=== PATIENT | female | born 1945 | race Caucasian/White ===

== ENCOUNTER → 2016-10-16 | Outpatient (CLI) | payer MEDICARE ==
[~2016-10-16] MED LIST: GOLIMUMAB IV ONE; SODIUM CHLORIDE 0.9% 250 ML in EMPTY BAG 1 BAG IV PRN; SODIUM CHLORIDE 0.9% 500 ML in EMPTY BAG 1 BAG IV PRN; SODIUM CHLORIDE 0.9% IV ONE
[2016-10-16 09:38] VITALS: BP 170/74; PULSE 70; RESP 20; TEMP 97.7
== END | disposition home or self-care (01) ==
LOC: PROCWHC3 09:02
PROVIDERS: ATTEND Internal Medicine Rheumatology
DX: M05.79 Rheumatoid arthritis with rheumatoid factor of multiple sites without organ or systems involvement (principal)
CPT/HCPCS: 96365; J1602

== ENCOUNTER → 2016-12-11 | Outpatient (CLI) | payer MEDICARE ==
[2016-12-11 10:03] VITALS: BP 140/62; PULSE 62; RESP 16; TEMP 98
== END | disposition home or self-care (01) ==
LOC: PROCWHC3 09:42
PROVIDERS: ATTEND Internal Medicine Rheumatology
DX: M05.79 Rheumatoid arthritis with rheumatoid factor of multiple sites without organ or systems involvement (principal)
CPT/HCPCS: 96365; J1602

== ENCOUNTER → 2017-02-05 | Outpatient (CLI) | payer MEDICARE ==
[2017-02-05 10:18] VITALS: BP 141/65; PULSE 73; RESP 16; TEMP 98.1
== END | disposition home or self-care (01) ==
LOC: PROCWHC3 09:53
PROVIDERS: ATTEND Internal Medicine Rheumatology
DX: M05.79 Rheumatoid arthritis with rheumatoid factor of multiple sites without organ or systems involvement (principal)
CPT/HCPCS: 96365; J1602

== ENCOUNTER → 2017-04-02 | Outpatient (CLI) | payer MEDICARE ==
[2017-04-02 10:28] VITALS: BP 163/82; PULSE 57; RESP 16; TEMP 98
== END ==
LOC: PROCWHC3 08:54
PROVIDERS: ATTEND Internal Medicine Rheumatology
DX: M05.79 Rheumatoid arthritis with rheumatoid factor of multiple sites without organ or systems involvement (principal)
CPT/HCPCS: 96365; J1602

== ENCOUNTER → 2018-03-05 | Outpatient (CLI) | payer MEDICARE ==
--- NOTE | 2018-03-09 10:12 | MM ---
Reason for exam: screening (asymptomatic). Last mammogram was performed 1 year and 8 months ago. History: Patient is postmenopausal and history of other cancer. Family history of breast cancer in aunt at age 50 and breast cancer in aunt at age 45. Cyst aspiration of the left breast. Took estrogen for 4 years 6 months beginning at age 57. Physical Findings: A clinical breast exam by your physician is recommended on an annual basis and results should be correlated with mammographic findings. MG 3D Screening Mammo W/Cad Bilateral CC and MLO view(s) were taken. Prior study comparison: July 11, 2016, bilateral MG 3d screening mammo w/cad. July 10, 2015, bilateral MG screening mammo w CAD. The breast tissue is heterogeneously dense. This may lower the sensitivity of mammography. Benign appearing bilateral calcifications. No suspicious abnormality on the right breast. There is a lateral mid depth rounded asymmetry on CC 3D views on the left breast. ASSESSMENT: Incomplete: need additional imaging evaluation, BI-RAD 0 RECOMMENDATION: Special view mammogram of the left breast. If lesion persists on supplemental views, image directed ultrasound is recommended. [facility] will attempt to contact patient to return for supplemental views and ultrasound if indicated.
== END | disposition home or self-care (01) ==
LOC: RADMAMWWP 09:28
PROVIDERS: ATTEND Internal Medicine
DX: Z12.31 Encounter for screening mammogram for malignant neoplasm of breast (principal)
CPT/HCPCS: 77063; 77067

== ENCOUNTER → 2018-03-05 | Outpatient (CLI) | payer MEDICARE ==
[2018-03-05 10:15] LABS: HGB 12.2 gm/dL (11.4-16.0); MCH 31.9 pg (25.0-35.0); MCHC 32.9 g/dL (31.0-37.0); Mean Platelet Volume 6.2; Platelet Count 296 k/uL (150-450); RBC 3.82 m/uL (3.80-5.40); RDW 14.7 % (11.5-15.5); WBC 6.4 k/uL (3.8-10.6)
[2018-03-05 10:16] LABS: Albumin 3.9 g/dL (3.5-5.0); Calcium 10.4 mg/dL (8.4-10.2); Potassium 4.7 mmol/L (3.5-5.1); Total Bilirubin 1.1 mg/dL (0.2-1.3); Total Protein 6.3 g/dL (6.3-8.2)
[2018-03-05 20:41] LABS: Hemoglobin A1C 5.5 % (4.0-6.0)
== END | disposition home or self-care (01) ==
LOC: LABWHC1 09:03
PROVIDERS: ATTEND Internal Medicine
DX: G46.3 Brain stem stroke syndrome (principal)
CPT/HCPCS: 36415; 80053; 80061; 83036; 84443; 85027

== ENCOUNTER → 2018-03-10 | Outpatient (CLI) | payer MEDICARE ==
--- NOTE | 2018-03-11 08:55 | MM ---
Reason for exam: additional evaluation requested from abnormal screening. Last mammogram was performed less than 1 month ago. History: Patient is postmenopausal and has history of other cancer at age 60. Family history of breast cancer in aunt at age 50 and breast cancer in aunt at age 45. Cyst aspiration of the left breast. Took estrogen for 4 years 6 months beginning at age 57. Physical Findings: Nurse did not find any significant physical abnormalities on exam. MG 3D Work Up W/Cad LT Spot compression CC and ML view(s) were taken of the left breast. Prior study comparison: March 05, 2018, bilateral MG 3d screening mammo w/cad. July 11, 2016, bilateral MG 3d screening mammo w/cad. There are scattered fibroglandular densities. There is no discrete abnormality. These results were verbally communicated with the patient and result sheet given to the patient on 03/10/18. ASSESSMENT: Negative, BI-RAD 1 RECOMMENDATION: Return to routine screening mammogram schedule for both breasts.
== END | disposition home or self-care (01) ==
LOC: RADMAMWWP 13:44
PROVIDERS: ATTEND Internal Medicine
DX: R92.8 Other abnormal and inconclusive findings on diagnostic imaging of breast (principal)
CPT/HCPCS: 77065; G0279; 77061

== ENCOUNTER → 2018-03-24 | Outpatient (CLI) | payer MEDICARE ==
--- NOTE | 2018-03-24 09:48 | MR ---
EXAMINATION TYPE: MR angio head wo con DATE OF EXAM: 03/24/2018 COMPARISON: NONE HISTORY: Stroke CONTRAST: None TECHNIQUE: Multiplanar multiecho imaging on a 3.0 Ruthy magnet is performed through the [place] of [place]. 3-D umrr-sb-ybhybf imaging is performed. Source images are reviewed on the computer in the axi al plane. Reconstructed images rotating on the computer are reviewed. FINDINGS: The internal carotid arteries bifurcate normally into A1 and M1 segments. The A2 segments are normal. Middle cerebral artery branches are normal. Anterior communicating artery is patent. The right posterior communicating artery is absent. The left posterior communicating artery is absent. Vertebrobasilar arteries within the [id number]-qp-ityz are normal. The left vertebral artery is dominant. Posterior cerebral vasculature is normal. No suspicious aneurysm or aneurysmal dilatation is evident. No obstructions are identified. No sign ificant flow-limiting stenosis is evident. IMPRESSIONS: 1. NORMAL MRA [place].
--- NOTE | 2018-03-24 10:19 | MR ---
EXAMINATION TYPE: MR brain wo/w con DATE OF EXAM: 03/24/2018 COMPARISON: NONE HISTORY: Stroke, brain bleed 02/13/2018, history of melanoma CONTRAST: Performed utilizing 7 mL intravenous Gadavist gadolinium contrast. TECHNIQUE: Multiplanar, multiecho imaging on a 3.0 [place]hy magnet is performed through the brain. Stud y is performed within 24 hours of arrival to the hospital. The craniovertebral junction is normal. The pituitary is normal. No blooming artifact suggest resid ual hemorrhage is evident. Diffusion-weighted imaging is performed. No abnormal hyperintensity is present to suggest an acute i ntracranial infarct or acute ischemic change. Patchy periventricular white matter hyperintensities are present on T2 and inversion recovery weighte d sequences. Findings are nonspecific but can be related to chronic white matter ischemic type change s. Ventricles and sulci are appropriate for the patient age. No abnormal enhancement is evident post contrast. IMPRESSIONS: 1. Patchy to confluent periventricular white matter ischemic changes, likely chronic. 2. No acute or subacute ischemic areas identified. 3. No abnormal enhancement.
== END | disposition home or self-care (01) ==
LOC: RADMRIMAIN 07:58
PROVIDERS: ATTEND Internal Medicine
DX: I67.82 Cerebral ischemia (principal); Z86.73 Personal history of transient ischemic attack (TIA), and cerebral infarction without residual deficits
CPT/HCPCS: 70544; 70553; A9581

== ENCOUNTER 2018-05-06 18:44 | Emergency (ER) | payer MEDICARE ==
[2018-05-06 18:49] VITALS: TEMP 98.2
[2018-05-06] MEDS ORDERED: SODIUM CHLORIDE 0.9% 1,000 ML IV STA (18:54)
--- NOTE | 2018-05-06 19:01 | ED ---
General Adult HPI - General Chief complaint: Neuro Symptoms/Deficit Stated complaint: POSS CVA Time Seen by Provider: 05/06/18 18:53 Source: patient, RN notes reviewed, old records reviewed Mode of arrival: wheelchair Limitations: no limitations - History of Present Illness Initial comments: This is a 72-year-old female the ER for evaluation. Patient does say for evaluation regards to headache. Severe headache, patient concern for stroke. Patient has history of high blood pressure. Patient taking all medication as prescribed. Sudden onset of headache after waking up tonight. No neurological complaint or deficit. Patient states he has remote history of similar symptoms of possible patient denies any loss of consciousness. Denies any recent trauma. No fevers. - Related Data Home Medications Medication Instructions Recorded Confirmed Calcium Carbonate [Calcium] 600 mg PO DAILY 04/01/15 05/06/18 Folic Acid 1 mg PO DAILY 04/01/15 05/06/18 Furosemide [Lasix] 40 mg PO DAILY 04/01/15 05/06/18 Sterling-3 Fatty Acids [Sterling-3] 1,000 mg PO DAILY 04/01/15 05/06/18 Omeprazole [PriLOSEC] 20 mg PO AC-BRKFST 04/01/15 05/06/18 Metoprolol Succinate (ER) [Toprol 50 mg PO DAILY 03/06/16 05/06/18 XL] Abatacept/Maltose [Orencia] 750 mg IVPB Q28D 05/06/18 05/06/18 Aspirin EC [Ecotrin] 325 mg PO DAILY 05/06/18 05/06/18 Bio-Cleanse 3 cap PO PC-LUNCH 05/06/18 05/06/18 Cholecalciferol [Vitamin D3] 1,000 unit PO BID 05/06/18 05/06/18 Cyanocobalamin (Vitamin B-12) 1,000 mcg PO DAILY 05/06/18 05/06/18 [Vitamin B-12] L.acidoph,Paracasei, B.lactis 2 cap PO HS 05/06/18 05/06/18 [Probiotic] Lisinopril 40 mg PO DAILY 05/06/18 05/06/18 Methotrexate Sodium [Methotrexate] 20 mg PO TU 05/06/18 05/06/18 NIFEdipine XL [Procardia Xl] 60 mg PO Q48H 05/06/18 05/06/18 Rosuvastatin Calcium [Crestor] 5 mg PO HS 05/06/18 05/06/18 Allergies Allergy/AdvReac Type Severity Reaction Status Date / Time pseudoephedrine HCl Allergy Unknown Verified 05/06/18 19:04 [From Sudafed] Sulfa (Sulfonamide Allergy Unknown Verified 05/06/18 19:04 Antibiotics) Review of Systems ROS Statement: Those systems with pertinent positive or pertinent negative responses have been documented in the HPI. ROS Other: All systems not noted in ROS Statement are negative. Past Medical History Past Medical History: CVA/TIA, Hyperlipidemia, Hypertension, Rheumatoid Arthritis (RA) History of Any Multi-Drug Resistant Organisms: None Reported Past Surgical History: Joint Replacement, Orthopedic Surgery Additional Past Surgical History / Comment(s): 03/2017 L foot surgery. Past Psychological History: No Psychological Hx Reported Smoking Status: Former smoker Past Alcohol Use History: None Reported Past Drug Use History: None Reported General Exam Limitations: no limitations General appearance: alert, in no apparent distress, anxious Head exam: Present: atraumatic, normocephalic, normal inspection Eye exam: Present: normal appearance, PERRL, EOMI. Absent: scleral icterus, conjunctival injection, periorbital swelling ENT exam: Present: normal exam, mucous membranes moist Neck exam: Present: normal inspection. Absent: tenderness, meningismus, lymphadenopathy Respiratory exam: Present: normal lung sounds bilaterally. Absent: respiratory distress, wheezes, rales, rhonchi, stridor Cardiovascular Exam: Present: regular rate, normal rhythm, normal heart sounds. Absent: systolic murmur, diastolic murmur, rubs, gallop, clicks GI/Abdominal exam: Present: soft, normal bowel sounds. Absent: distended, tenderness, guarding, rebound, rigid Extremities exam: Present: normal inspection, full ROM, normal capillary refill. Absent: tenderness, pedal edema, joint swelling, calf tenderness Back exam: Present: normal inspection Neurological exam: Present: alert, oriented X3, CN II-XII intact Psychiatric exam: Present: normal affect, normal mood Skin exam: Present: warm, dry, intact, normal color. Absent: rash Course Vital Signs 05/06/18 18:46 Temperature 98.2 F Pulse Rate 74 Respiratory 20 Rate Blood Pressure 174/85 O2 Sat by Pulse 99 Oximetry - Reevaluation(s) Reevaluation #1: 05/06/18 21:12 Medical records reviewed Reevaluation #2: 05/06/18 21:13 Headache is improved blood pressure is controlled EKG Findings - EKG Comments: EKG Findings:: EKG shows no signs of an 86, KS 154, QRS 80, QTC 471 Medical Decision Making - Medical Decision Making 72 female with undifferentiated headache. CT CT brain is negative for acute disease labwork normal. Patient can be discharged - Lab Data Result diagrams: 05/06/18 18:49 05/06/18 18:49 Lab Results 05/06/18 05/06/18 05/06/18 Range/Units 18:49 18:49 18:49 WBC 7.1 (3.8-10.6) k/uL RBC 4.06 (3.80-5.40) m/uL Hgb 13.3 (11.4-16.0) gm/dL Hct 39.4 (34.0-46.0) % MCV 97.0 (80.0-100.0) fL MCH 32.7 (25.0-35.0) pg MCHC 33.7 (31.0-37.0) g/dL RDW 14.3 (11.5-15.5) % Plt Count 280 (150-450) k/uL Neutrophils % 41 % Lymphocytes % 47 % Monocytes % 5 % Eosinophils % 2 % Basophils % 1 % Neutrophils # 2.9 (1.3-7.7) k/uL Lymphocytes # 3.3 (1.0-4.8) k/uL Monocytes # 0.3 (0-1.0) k/uL Eosinophils # 0.2 (0-0.7) k/uL Basophils # 0.0 (0-0.2) k/uL PT (9.0-12.0) sec INR (<1.2) APTT (22.0-30.0) sec Sodium 139 (137-145) mmol/L Potassium 4.3 (3.5-5.1) mmol/L Chloride 104 (98-107) mmol/L Carbon Dioxide 26 (22-30) mmol/L Anion Gap 9 mmol/L BUN 13 (7-17) mg/dL Creatinine 0.84 (0.52-1.04) mg/dL Est GFR (CKD-EPI)AfAm 79 (>60 ml/min/1.73 sqM) Est GFR (CKD-EPI)NonAf 69 (>60 ml/min/1.73 sqM) Glucose 102 H (74-99) mg/dL POC Glucose (mg/dL) (75-99) mg/dL POC Glu Help Desk Specialist ID Calcium 10.7 H (8.4-10.2) mg/dL Total Bilirubin 0.8 (0.2-1.3) mg/dL AST 37 H (14-36) U/L ALT 30 (9-52) U/L Alkaline Phosphatase 83 (38-126) U/L Total Creatine Kinase 82 (30-135) U/L CK-MB (CK-2) 1.0 (0.0-2.4) ng/mL CK-MB (CK-2) Rel Index 1.2 Troponin I <0.012 (0.000-0.034) ng/mL Total Protein 7.2 (6.3-8.2) g/dL Albumin 4.5 (3.5-5.0) g/dL Urine Color Urine Appearance (Clear) Urine pH (5.0-8.0) Ur Specific [place] (1.001-1.035) Urine Protein (Negative) Urine Glucose (UA) (Negative) Urine Ketones (Negative) Urine Blood (Negative) Urine Nitrite (Negative) Urine Bilirubin (Negative) Urine Urobilinogen (<2.0) mg/dL Ur Leukocyte Esterase (Negative) 05/06/18 05/06/18 05/06/18 Range/Units 18:49 18:54 19:32 WBC (3.8-10.6) k/uL RBC (3.80-5.40) m/uL Hgb (11.4-16.0) gm/dL Hct (34.0-46.0) % MCV (80.0-100.0) fL MCH (25.0-35.0) pg MCHC (31.0-37.0) g/dL RDW (11.5-15.5) % Plt Count (150-450) k/uL Neutrophils % % Lymphocytes % % Monocytes % % Eosinophils % % Basophils % % Neutrophils # (1.3-7.7) k/uL Lymphocytes # (1.0-4.8) k/uL Monocytes # (0-1.0) k/uL Eosinophils # (0-0.7) k/uL Basophils # (0-0.2) k/uL PT 9.7 (9.0-12.0) sec INR 1.0 (<1.2) APTT 22.8 (22.0-30.0) sec Sodium (137-145) mmol/L Potassium (3.5-5.1) mmol/L Chloride (98-107) mmol/L Carbon Dioxide (22-30) mmol/L Anion Gap mmol/L BUN (7-17) mg/dL Creatinine (0.52-1.04) mg/dL Est GFR (CKD-EPI)AfAm (>60 ml/min/1.73 sqM) Est GFR (CKD-EPI)NonAf (>60 ml/min/1.73 sqM) Glucose (74-99) mg/dL POC Glucose (mg/dL) 99 (75-99) mg/dL POC Glu Help Desk Specialist ID Sanjeev Gillis Calcium (8.4-10.2) mg/dL Total Bilirubin (0.2-1.3) mg/dL AST (14-36) U/L ALT (9-52) U/L Alkaline Phosphatase (38-126) U/L Total Creatine Kinase (30-135) U/L CK-MB (CK-2) (0.0-2.4) ng/mL CK-MB (CK-2) Rel Index Troponin I (0.000-0.034) ng/mL Total Protein (6.3-8.2) g/dL Albumin (3.5-5.0) g/dL Urine Color Colorless Urine Appearance Clear (Clear) Urine pH 7.5 (5.0-8.0) Ur Specific [place] 1.004 (1.001-1.035) Urine Protein Negative (Negative) Urine Glucose (UA) Negative (Negative) Urine Ketones Negative (Negative) Urine Blood Negative (Negative) Urine Nitrite Negative (Negative) Urine Bilirubin Negative (Negative) Urine Urobilinogen <2.0 (<2.0) mg/dL Ur Leukocyte Esterase Negative (Negative) - Radiology Data Radiology results: report reviewed (CT CT brain negative for acute disease), image reviewed Disposition Clinical Impression: Acute headache, Hypertension Disposition: HOME SELF-CARE Condition: Good Instructions: Acute Headache (ED) Is patient prescribed a controlled substance at d/c from ED?: No Referrals: Christiano Sue MD [Primary Care Provider] - 1-2 days
[2018-05-06 19:03] LABS: Glucose,Whole Blood 99 mg/dL (75-99)
[2018-05-06 19:34] LABS: Basophils % (A) 1 %; Eosinophils # (A) 0.2 k/uL (0-0.7); Eosinophils % (A) 2 %; HCT 39.4 % (34.0-46.0); HGB 13.3 gm/dL (11.4-16.0); Lymphocytes # (A) 3.3 k/uL (1.0-4.8); Lymphocytes % (A) 47 %; MCH 32.7 pg (25.0-35.0); MCHC 33.7 g/dL (31.0-37.0); Mean Platelet Volume 6.8; Monocytes # (A) 0.3 k/uL (0-1.0); Monocytes % (A) 5 %; Neutrophils # (A) 2.9 k/uL (1.3-7.7); Neutrophils % (A) 41 %; Platelet Count 280 k/uL (150-450); RBC 4.06 m/uL (3.80-5.40); RDW 14.3 % (11.5-15.5); WBC 7.1 k/uL (3.8-10.6)
[2018-05-06 19:36] LABS: Albumin 4.5 g/dL (3.5-5.0); Calcium 10.7 mg/dL (8.4-10.2); Potassium 4.3 mmol/L (3.5-5.1); Total Bilirubin 0.8 mg/dL (0.2-1.3); Total Protein 7.2 g/dL (6.3-8.2)
[2018-05-06 19:37] LABS: Creatine Kinase 82 U/L (30-135)
[2018-05-06 19:39] LABS: Appearance,Urine Clear (Clear); Bilirubin,Urine Negative (Negative); Blood,Urine Negative (Negative); Color,Urine Colorless; Glucose,Urine (UA) Negative (Negative); Ketones,Urine Negative (Negative); Leukocyte Esterase,Urine Negative (Negative); Nitrite,Urine Negative (Negative); PH, Urine 7.5 (5.0-8.0); Protein,Urine Negative (Negative); Specific Gravity,Urine 1.004 (1.001-1.035); Urobilinogen,Urine <2.0 mg/dL (<2.0)
[2018-05-06 19:39] LABS: Partial Thromboplastin Time 22.8 sec (22.0-30.0); Prothrombin Time 9.7 sec (9.0-12.0)
--- NOTE | 2018-05-06 19:44 | CT ---
EXAMINATION: CT brain wo con for TPA DATE AND TIME: 05/06/2018 7:32 PM ORDERING PROVIDER: Marc Gold DO CLINICAL INDICATION: Neuro Deficits TECHNIQUE: 07/01/2016 supine images to cover the abdomen and pelvis COMPARISON: 04/01/2015 CT DESCRIPTION: The calvarium is intact. There is no intracranial hemorrhage. There is no mass or mass e ffect. There is no definite new attenuation defect. Redemonstrated low-attenuation throughout the severo ateral brennan radiata and centrum semiovale noted, but no definite new attenuation defect. Remainder of the intra-axial and extra-axial compartment examination is unremarkable. The paranasal s inuses, middle ear cavities, and mastoid sinus air cells are clear. The orbits are intact. Excessive cerumen is incidentally noted bilaterally within the external auditory canals. IMPRESSION: NO ACUTE PROCESS.
[2018-05-06 19:48] LABS: Troponin I <0.012 ng/mL (0.000-0.034)
--- NOTE | 2018-05-06 20:02 | CT ---
EXAMINATION TYPE: CT angio head neck with contrast and with 3-D Reconstruction rendering DATE OF EXAM: 05/06/2018 HISTORY: Neuro deficits COMPARISON: None CT DLP: 322.7 mGycm. Automated Exposure Control for Dose Reduction was Utilized. TECHNIQUE: CTA scan of the neck is performed with IV Contrast, patient injected with 65ml mL of Isov ue 370, axial images are obtained, coronal and sagittal reformatted images are reviewed. Three-D juju nstructed images are created on an independent workstation and reviewed. FINDINGS: The great vessels at the aortic arch are widely patent. The bilateral carotid arterial systems and lateral vertebral arteries are widely patent throughout th eir cervical course. No hemodynamically significant stenoses. The anterior and posterior intracranial arterial circulation is widely patent. No aneurysm. No hemody namically significant stenoses. There are no incidental extra arterial significant findings. IMPRESSION: NO ACUTE PROCESS.
[2018-05-06] MEDS ORDERED: LABETALOL 5 MG/ML VIAL MDV IVP STA (21:03)
[2018-05-06 21:23] VITALS: BP 188/86; PULSE 79; RESP 16
--- NOTE | 2018-05-06 21:43 | XR ---
EXAMINATION: XR chest 2V DATE AND TIME: 05/06/2018 9:16 PM ORDERING PROVIDER: Marc Gold DO CLINICAL INDICATION: altered mental status TECHNIQUE: PA and lateral COMPARISON: 04/01/2015 DESCRIPTION: The lungs are clear. The pleural spaces are negative. The cardiac silhouette is mildly enlarged. The aorta is ectatic, similar to the prior study. The skeletal structures are intact without focal findings. The soft tissues are unremarkable. IMPRESSION: NO ACUTE PROCESS.
== END 2018-05-06 21:56 | disposition home or self-care (01) ==
LOC: EC 18:44
DX: I10 Essential (primary) hypertension (principal); R51 Headache; E78.5 Hyperlipidemia, unspecified; M06.9 Rheumatoid arthritis, unspecified; Z87.891 Personal history of nicotine dependence; Z79.82 Long term (current) use of aspirin; Z79.899 Other long term (current) drug therapy; Z88.2 Allergy status to sulfonamides; Z88.8 Allergy status to other drugs, medicaments and biological substances
CPT/HCPCS: 36415; 93005; 80053; 82550; 82553; 84484; 85025; 85610; 85730; 81003; 71046; 70496; 70450; 70498; 99285; 96374; 96361; Q9967

== ENCOUNTER → 2018-05-06 | Outpatient (CLI) | payer MEDICARE ==
--- NOTE | 2018-05-06 17:58 | ECHOF ---
Referral Reason:R06.02 Shortness of breath MEASUREMENTS -------- HEIGHT: 162.6 cm WEIGHT: 73.9 kg BP: RVIDd: 2.9 cm (< 3.3) IVSd: 1.0 cm (0.6 - 1.1) LVIDd: 4.3 cm (3.9 - 5.3) LVPWd: 1.0 cm (0.6 - 1.1) IVSs: 1.3 cm LVIDs: 2.8 cm LVPWs: 1.3 cm Ao Diam: 3.3 cm (2.0 - 3.7) LAESV Index (A-L): 21.65 ml/m Ao Diam: 3.3 cm (2.0 - 3.7) AV Cusp: 1.7 cm (1.5 - 2.6) LA Diam: 3.1 cm (2.7 - 3.8) MV E Saúl: 0.82 m/s MV DecT: 249 ms MV A Saúl: 0.97 m/s MV E/A Ratio: 0.85 AR PHT: 408 ms RAP: 5.00 mmHg RVSP: 14.30 mmHg FINDINGS -------- Sinus rhythm. This was a technically adequate study. The left ventricular size is normal. Left ventricular wall thickness is normal. Overall left vent ricular systolic function is normal with, an EF between 55 - 60 %. The right ventricle is normal in size and function. Normal LA size by volume 22+/-6 ml/m2. The right atrium is normal in size. Aortic valve is trileaflet and is mildly thickened. There is djxx-bc-igwveqzt aortic regurgitation. There is no evidence of aortic stenosis. The mitral valve leaflets are mildly thickened. There is trace mitral regurgitation. Trace tricuspid regurgitation present. Right ventricular systolic pressure is normal at < 35 mmHg. There is no evidence of pulmonary hypertension. The pulmonic valve is normal. The aortic root size is normal. Normal inferior vena cava with normal inspiratory collapse consistent with estimated right atrial pre ssure of 5 mmHg. There is no pericardial effusion. CONCLUSIONS -------- 1. Sinus rhythm. 2. This was a technically adequate study. 3. The left ventricular size is normal. 4. Left ventricular wall thickness is normal. 5. Overall left ventricular systolic function is normal with, an EF between 55 - 60 %. 6. Normal LA size by volume 22+/-6 ml/m2. 7. Aortic valve is trileaflet and is mildly thickened. 8. There is suav-ml-adswcusw aortic regurgitation. 9. The mitral valve leaflets are mildly thickened. 10. There is trace mitral regurgitation. 11. Trace tricuspid regurgitation present. 12. Right ventricular systolic pressure is normal at < 35 mmHg. 13. There is no evidence of pulmonary hypertension. 14. The aortic root size is normal. 15. There is no pericardial effusion. LIBRARY SERVICES COORDINATOR: Pratik Cabrera RDCS
== END | disposition home or self-care (01) ==
LOC: RADECHMAIN 14:50
PROVIDERS: ATTEND Internal Medicine
DX: I35.1 Nonrheumatic aortic (valve) insufficiency (principal); I05.9 Rheumatic mitral valve disease, unspecified
CPT/HCPCS: 93306

== ENCOUNTER 2018-06-19 09:41 | Emergency (ER) | payer MEDICARE ==
[2018-06-19 09:53] VITALS: RESP 16
[2018-06-19] MEDS ORDERED: SODIUM CHLORIDE 0.9% 500 ML IV STA (10:21)
[2018-06-19 10:36] LABS: Basophils % (A) 0 %; Eosinophils # (A) 0.2 k/uL (0-0.7); Eosinophils % (A) 2 %; HCT 35.5 % (34.0-46.0); HGB 11.8 gm/dL (11.4-16.0); Lymphocytes # (A) 3.2 k/uL (1.0-4.8); Lymphocytes % (A) 38 %; MCH 32.8 pg (25.0-35.0); MCHC 33.3 g/dL (31.0-37.0); MCV 98.5 fL (80.0-100.0); Mean Platelet Volume 6.7; Monocytes # (A) 0.5 k/uL (0-1.0); Monocytes % (A) 5 %; Neutrophils # (A) 4.2 k/uL (1.3-7.7); Neutrophils % (A) 51 %; Platelet Count 269 k/uL (150-450); RDW 13.7 % (11.5-15.5); WBC 8.3 k/uL (3.8-10.6)
--- NOTE | 2018-06-19 10:38 | ED ---
General Adult HPI - General Chief complaint: Syncope Stated complaint: Fall Source: patient Mode of arrival: EMS Limitations: no limitations - History of Present Illness Initial comments: Dictation was produced using [employer] dictation software. please excuse any grammatical, word or spelling errors. Chief Complaint: 72-year-old female with past medical history of hypertension presents after syncopal episode. History of Present Illness: He was brought in by EMS for syncopal episode. According to who was at home during the event. He states he observed her walking to the kitchen early this morning. She then syncopized. He heard a loud thump. He went into the kitchen and noticed that patient was lying on her back. He states she was unconscious for approximately 1 minute. EMS was called and transported her to the emergency room. states that she was a little confused for approximately 20 minutes after the event. She has no history of seizure. Patient expresses a similar episode while she was visiting in [place] per she was diagnosed with acute CVA. She had an MRI done here back in her home town and she was value by neurologist who suggested that patient's symptoms were not consistent with CVA. Patient currently denies any neurologic deficit. Prior to this episode today patient has been at baseline. The ROS documented in this emergency department record has been reviewed and confirmed by me. Those systems with pertinent positive or negative responses have been documented in the HPI. All other systems are other negative and/or noncontributory. - Related Data Home Medications Medication Instructions Recorded Confirmed Calcium Carbonate [Calcium] 600 mg PO DAILY 04/01/15 06/19/18 Folic Acid 1 mg PO DAILY 04/01/15 06/19/18 Noxapater-3 Fatty Acids [Noxapater-3] 1,000 mg PO DAILY 04/01/15 06/19/18 Metoprolol Succinate (ER) [Toprol 50 mg PO DAILY 03/06/16 06/19/18 XL] Abatacept/Maltose [Orencia] 750 mg IVPB Q28D 05/06/18 06/19/18 Bio-Cleanse 3 cap PO PC-LUNCH 05/06/18 06/19/18 Cyanocobalamin (Vitamin B-12) 1,000 mcg PO DAILY 05/06/18 06/19/18 [Vitamin B-12] L.acidoph,Paracasei, B.lactis 2 cap PO HS 05/06/18 06/19/18 [Probiotic] Methotrexate Sodium [Methotrexate] 20 mg PO TU 05/06/18 06/19/18 Rosuvastatin Calcium [Crestor] 5 mg PO HS 05/06/18 06/19/18 Baclofen 5 mg PO DAILY 06/19/18 06/19/18 Baclofen 10 mg PO HS 06/19/18 06/19/18 Furosemide [Lasix] 20 mg PO BID 06/19/18 06/19/18 Lisinopril [Prinivil] 20 mg PO BID 06/19/18 06/19/18 Multivitamins, Thera [Multivitamin 2 tab PO DAILY 06/19/18 06/19/18 (formulary)] Allergies Allergy/AdvReac Type Severity Reaction Status Date / Time pseudoephedrine HCl Allergy Unknown Verified 06/19/18 10:57 [From Sudafed] Sulfa (Sulfonamide Allergy Unknown Verified 06/19/18 10:57 Antibiotics) Review of Systems ROS Statement: Those systems with pertinent positive or pertinent negative responses have been documented in the HPI. ROS Other: All systems not noted in ROS Statement are negative. Past Medical History Past Medical History: CVA/TIA, Hyperlipidemia, Hypertension, Rheumatoid Arthritis (RA) History of Any Multi-Drug Resistant Organisms: None Reported Past Surgical History: Joint Replacement, Orthopedic Surgery Additional Past Surgical History / Comment(s): 03/2017 L foot surgery. Past Psychological History: No Psychological Hx Reported Smoking Status: Former smoker Past Alcohol Use History: None Reported Past Drug Use History: None Reported General Exam - General Exam Comments Initial Comments: PHYSICAL EXAM: General Impression: Alert and oriented x3, not in acute distress HEENT: Normocephalic atraumatic, extra-ocular movements intact, pupils equal and reactive to light bilaterally, mucous membranes moist. Cardiovascular: Heart regular rate and rhythm, S1&S2 audible, no murmurs, rubs or gallops Chest: Lungs clear to auscultation bilaterally, no rhonchi, no wheeze, no rales Abdomen: Bowel sounds present, abdomen soft, non-tender, non-distended, no organomegaly Musculoskeletal: Pulses present and equal in all extremities, no peripheral edema Motor: Power 5/5 bilaterally, no focal deficits noted Neurological: CN II-XII grossly intact, no focal motor or sensory deficits noted Skin: Intact with no visualized rashes Psych: Normal affect and mood Limitations: no limitations Course Vital Signs 06/19/18 06/19/18 06/19/18 09:51 11:03 11:26 Temperature 97 F L Pulse Rate 55 L 53 L 56 L Respiratory 16 16 16 Rate Blood Pressure 185/79 178/78 163/67 O2 Sat by Pulse 95 99 100 Oximetry Medical Decision Making - Medical Decision Making ED course: 72-year-old female presents after syncopal episode. She was unconscious for approximately 1 minute per . She was confused vital signs upon arrival are within acceptable limits. Patient does has a history of hypertension. Patient denies any headache at this time. EKG does not show any findings to suggest etiology of syncope no physical exam findings to suggest seizure or tonic-clonic activity. Low clinical suspicion of subclavian steal syndrome. Patient reevaluated and neuro intact. Laboratory evaluation obtained. CBC unremarkable. Coag panel is unremarkable. Metabolic panel shows no acute processes. Cardiac enzymes are negative. Chest x-ray shows no acute processes. Computed tomography scan of the head was obtained showing suspected new small 4 mm focus of acute intraparenchymal hemorrhage at the right thalamus. Given these findings patient will need to be transferred to facility with neurosurgical service. Family requests patient be transferred to [facility] for further care. Patient is on aspirin. She is not on any blood thinners. Patient given 20 mg of labetalol for blood pressure control. Pending transfer to [place]. EMS transported with labetalol infusion to titrate during transportation. Platelets are fine. Coag panel is unremarkable. No other intervention needed at this time. Patient to be maintained in a sitting up position. EKG interpretation: Ventricular rate 51 sinus bradycardia,. Interval 162, care is 88, QTC 409. No AL prolongation, no QTC prolongation, no ST or T-wave changes noted. There is isolated T-wave inversion in V3. No findings to suggest ischemia or infarction. S. Overall, this EKG is unremarkable - Lab Data Result diagrams: 06/19/18 10:05 06/19/18 10:05 Lab Results 06/19/18 06/19/18 06/19/18 Range/Units 10:05 10:05 10:05 WBC 8.3 (3.8-10.6) k/uL RBC 3.60 L (3.80-5.40) m/uL Hgb 11.8 (11.4-16.0) gm/dL Hct 35.5 (34.0-46.0) % MCV 98.5 (80.0-100.0) fL MCH 32.8 (25.0-35.0) pg MCHC 33.3 (31.0-37.0) g/dL RDW 13.7 (11.5-15.5) % Plt Count 269 (150-450) k/uL Neutrophils % 51 % Lymphocytes % 38 % Monocytes % 5 % Eosinophils % 2 % Basophils % 0 % Neutrophils # 4.2 (1.3-7.7) k/uL Lymphocytes # 3.2 (1.0-4.8) k/uL Monocytes # 0.5 (0-1.0) k/uL Eosinophils # 0.2 (0-0.7) k/uL Basophils # 0.0 (0-0.2) k/uL PT (9.0-12.0) sec INR (<1.2) APTT (22.0-30.0) sec Sodium 137 (137-145) mmol/L Potassium 4.2 (3.5-5.1) mmol/L Chloride 104 (98-107) mmol/L Carbon Dioxide 27 (22-30) mmol/L Anion Gap 6 mmol/L BUN 18 H (7-17) mg/dL Creatinine 0.67 (0.52-1.04) mg/dL Est GFR (CKD-EPI)AfAm >90 (>60 ml/min/1.73 sqM) Est GFR (CKD-EPI)NonAf 87 (>60 ml/min/1.73 sqM) Glucose 91 (74-99) mg/dL Calcium 9.8 (8.4-10.2) mg/dL Total Bilirubin 1.3 (0.2-1.3) mg/dL AST 29 (14-36) U/L ALT 30 (9-52) U/L Alkaline Phosphatase 69 (38-126) U/L Total Creatine Kinase 42 (30-135) U/L CK-MB (CK-2) 0.9 (0.0-2.4) ng/mL CK-MB (CK-2) Rel Index 2.1 Troponin I <0.012 (0.000-0.034) ng/mL Total Protein 6.2 L (6.3-8.2) g/dL Albumin 3.6 (3.5-5.0) g/dL 06/19/18 Range/Units 10:05 WBC (3.8-10.6) k/uL RBC (3.80-5.40) m/uL Hgb (11.4-16.0) gm/dL Hct (34.0-46.0) % MCV (80.0-100.0) fL MCH (25.0-35.0) pg MCHC (31.0-37.0) g/dL RDW (11.5-15.5) % Plt Count (150-450) k/uL Neutrophils % % Lymphocytes % % Monocytes % % Eosinophils % % Basophils % % Neutrophils # (1.3-7.7) k/uL Lymphocytes # (1.0-4.8) k/uL Monocytes # (0-1.0) k/uL Eosinophils # (0-0.7) k/uL Basophils # (0-0.2) k/uL PT 9.7 (9.0-12.0) sec INR 1.0 (<1.2) APTT 20.8 L (22.0-30.0) sec Sodium (137-145) mmol/L Potassium (3.5-5.1) mmol/L Chloride (98-107) mmol/L Carbon Dioxide (22-30) mmol/L Anion Gap mmol/L BUN (7-17) mg/dL Creatinine (0.52-1.04) mg/dL Est GFR (CKD-EPI)AfAm (>60 ml/min/1.73 sqM) Est GFR (CKD-EPI)NonAf (>60 ml/min/1.73 sqM) Glucose (74-99) mg/dL Calcium (8.4-10.2) mg/dL Total Bilirubin (0.2-1.3) mg/dL AST (14-36) U/L ALT (9-52) U/L Alkaline Phosphatase (38-126) U/L Total Creatine Kinase (30-135) U/L CK-MB (CK-2) (0.0-2.4) ng/mL CK-MB (CK-2) Rel Index Troponin I (0.000-0.034) ng/mL Total Protein (6.3-8.2) g/dL Albumin (3.5-5.0) g/dL Disposition Clinical Impression: Hemorrhagic stroke Disposition: OTHER INSTITUTION NOT DEFINED Condition: Critical Referrals: Christiano Sue MD [Primary Care Provider] - 1-2 days Time of Disposition: 11:44 - Out of Hospital Transfer - Req. Specs Out of Hospital Transfer - Requested Specifics: Other Emergency Center ([facility])
[2018-06-19 10:45] LABS: ALT 30 U/L (9-52); AST 29 U/L (14-36); Albumin 3.6 g/dL (3.5-5.0); Alkaline Phosphatase 69 U/L (38-126); Anion Gap 6 mmol/L; Blood Urea Nitrogen 18 mg/dL (7-17); Calcium 9.8 mg/dL (8.4-10.2); Carbon Dioxide 27 mmol/L (22-30); Chloride 104 mmol/L (98-107); Glucose 91 mg/dL (74-99); Potassium 4.2 mmol/L (3.5-5.1); Sodium 137 mmol/L (137-145); Total Bilirubin 1.3 mg/dL (0.2-1.3); Total Protein 6.2 g/dL (6.3-8.2)
[2018-06-19 10:53] LABS: Prothrombin Time 9.7 sec (9.0-12.0)
[2018-06-19 10:55] LABS: Partial Thromboplastin Time 20.8 sec (22.0-30.0)
--- NOTE | 2018-06-19 11:06 | XR ---
EXAMINATION TYPE: XR chest 2V DATE OF EXAM: 06/19/2018 COMPARISON: 05/06/2018 INDICATION: Syncope TECHNIQUE: Frontal and lateral views of the chest are obtained. FINDINGS: The heart size is mildly prominent. The pulmonary vasculature is normal. The lungs are clear. IMPRESSION: 1. Mild stable appearing cardiomegaly
[2018-06-19 11:08] LABS: Creatine Kinase 42 U/L (30-135)
--- NOTE | 2018-06-19 11:11 | CT ---
EXAMINATION TYPE: CT brain wo con DATE OF EXAM: 06/19/2018 HISTORY: Syncope CT DLP: 1073 mGycm. Automated Exposure Control for Dose Reduction was Utilized. TECHNIQUE: CT scan of the head is performed without contrast. COMPARISON: CT head May 06, [address] April 01, 2015. FINDINGS: There is increased hyperdensity suspicious for new small focus of acute intraparenchymal hemorrhage right thalamus axial image 27 measuring roughly 4 mm. There is diffuse ventricular and sul paola prominence consistent with diffuse age-related cerebral atrophy. There is low-attenuation in the periventricular white matter consistent with chronic small vessel ischemic change. The globes are i ntact and the visualized sinuses are clear. Patchy soft tissue density bilateral solitary canals li [place] reflects cerumen is redemonstrated. IMPRESSION: Suspect new small 4 mm focus of acute intraparenchymal hemorrhage right thalamus at level of prior vague calcification. There is background mild diffuse age-related cerebral atrophy and mor e moderate chronic small vessel ischemic change redemonstrated. Case discussed with ordering ER physician via telephone at time of dictation
[2018-06-19] MEDS ORDERED: LABETALOL 5 MG/ML VIAL MDV IVP STA (11:20)
[2018-06-19 11:21] LABS: Creatine Kinase MB 0.9 ng/mL (0.0-2.4); Troponin I <0.012 ng/mL (0.000-0.034)
[2018-06-19] MEDS ORDERED: LABETALOL 100 MG in SODIUM CHLORIDE 0.9% 80 ML IV ONE (11:32)
[2018-06-19 12:02] VITALS: TEMP 97.5
[2018-06-19] MEDS ORDERED: MORPHINE SULFATE 2 MG/ML SYRINGE IVP STA (12:05)
[2018-06-19 12:12] VITALS: BP 160/71; PULSE 57
[2018-06-19] MEDS ORDERED: ONDANSETRON 4 MG/2 ML VIAL IVP STA (12:12)
== END 2018-06-19 12:56 | disposition other institution (70) ==
LOC: EC 09:41
DX: I61.9 Nontraumatic intracerebral hemorrhage, unspecified (principal); E78.5 Hyperlipidemia, unspecified; I10 Essential (primary) hypertension; M06.9 Rheumatoid arthritis, unspecified; Z79.82 Long term (current) use of aspirin; Z79.899 Other long term (current) drug therapy; Z88.2 Allergy status to sulfonamides; Z88.8 Allergy status to other drugs, medicaments and biological substances; Z87.891 Personal history of nicotine dependence; W19.XXXA Unspecified fall, initial encounter; Y93.01 Activity, walking, marching and hiking; Y92.000 Kitchen of unspecified non-institutional (private) residence as the place of occurrence of the external cause
CPT/HCPCS: 99285; 96365; 96375 ×2; 96376; 96361; 36415; 93005; 80053; 82550; 82553; 84484; 85025; 85610; 85730; 71046; 70450; J2405; J2270; 96374

== ENCOUNTER → 2018-08-21 | Outpatient (CLI) | payer MEDICARE | END | disposition home or self-care (01) | LOC: LABWHC1 12:02 | PROVIDERS: ATTEND Psychiatry & Neurology Neurology | DX: Z01.812 Encounter for preprocedural laboratory examination (principal) | CPT/HCPCS: 36415; 82565 ==

== ENCOUNTER → 2018-08-28 | Outpatient (CLI) | payer MEDICARE ==
--- NOTE | 2018-08-28 14:26 | CT ---
EXAMINATION TYPE: CT brain enter con DATE OF EXAM: 08/28/2018 COMPARISON: CT brain 06/19/2018 and 05/25/2018 and MRI dated 03/24/2018. HISTORY: Syncopal episode in Jun 2018. no complaints at time of scan CT DLP: 1922 mGycm Automated Exposure Control for Dose Reduction was Utilized. TECHNIQUE: CT scan of the head is performed with IV contrast.,CT scan of the head is performed withou t and with without and with IV Contrast, patient injected with 100 mL of Isovue 300. FINDINGS: There is decrease in conspicuity of the previously seen area of hyperattenuation within th e right thalamic mass measuring approximately 6 mm. There is no abnormal or suspicious enhancement of this region and no interval growth. No surrounding vasogenic edema is seen. Noncontrast images show no acute intracranial hemorrhage or midline shift. The ventricles and sulci are only very mildly prominent compatible with minimal age-related volume lo ss. Postcontrast images show no suspicious enhancing intraparenchymal mass. There are confluent areas of hypoattenuation within the periventricular and subcortical white matter. These are similar in deg ree to the prior of 06/19/2018. The globes are intact and the visualized sinuses are clear. Frontal si nuses are hypoplastic. Cerumen is seen within the external auditory canals bilaterally. Incidental no te is made of bilateral drusen bodies and slight undulation of the left optic nerve. Findings are unc hanged from the prior. IMPRESSION: 1. Decreasing conspicuity of the right thalamic 6 mm area of hyperattenuation with no interval growth , no suspicious enhancement, and no surrounding edema. Therefore this is favored to resolved focal in traparenchymal hemorrhage with background few thalamic calcifications as seen on more remote exams. 2. No suspicious abnormal intracranial enhancement, mass effect or midline shift. 3. Moderate burden nonspecific white matter change, most commonly on the basis of chronic microangiop athy with only minimal supratentorial age-related volume loss.
== END ==
LOC: RADCTMAIN 08:19
PROVIDERS: ATTEND Psychiatry & Neurology Neurology
DX: I61.9 Nontraumatic intracerebral hemorrhage, unspecified (principal); R90.89 Other abnormal findings on diagnostic imaging of central nervous system
CPT/HCPCS: 82565; 84520; 70470; 36415; Q9967

== ENCOUNTER → 2018-12-03 | Outpatient (CLI) | payer MEDICARE ==
--- NOTE | 2018-12-05 06:35 | MR ---
EXAMINATION TYPE: MR shoulder LT wo con DATE OF EXAM: 12/03/2018 COMPARISON: Outside left shoulder x-ray from 8 days ago. HISTORY: Left shoulder pain per order. Pain with diminished range of motion for about 4 months per pa tient. TECHNIQUE: Multiplanar, multisequence imaging of the left shoulder is performed without contrast. FINDINGS: Rotator Cuff: There is full-thickness retracted tear of the anterior two thirds of the distal suprasp inatus tendon with stump retracted to level of acromioclavicular joint seen best paracoronal image 13 . Some fibers remain intact seen on sagittal images identified posteriorly. Infraspinatus tendon is i ntact. Subscapularis tendon is felt intact. Rotator cuff muscle bulk is preserved. Acromioclavicular Joint: There is moderate capsular hypertrophy and joint space loss with mild spurri ng. Underlying fat plane is effaced. Distal acromion morphology is unremarkable. Glenohumeral Joint: Moderate glenohumeral joint effusion is seen with moderate narrowing. No signific ant spurring is evident. Labrum: The superior labrum shows increased linear signal at the biceps anchor paracoronal image 15 c onsistent with degenerative SLAP tear. Biceps Tendon: The long head of biceps is in normal location within bicipital groove. Intra-articular portion less well visualized but felt within normal limits. Bone marrow signal: No focal abnormal marrow signal is appreciated. Other: No additional significant abnormality is appreciated. IMPRESSION: 1. High-grade retracted full-thickness partial tear of the supraspinatus tendon may be acute/subacute in age corresponding to patient's symptoms. 2. Background moderate glenohumeral and AC joint arthropathy as detailed above.
== END | disposition home or self-care (01) ==
LOC: RADMRIMAIN 09:46
PROVIDERS: ATTEND Orthopaedic Surgery
DX: M75.102 Unspecified rotator cuff tear or rupture of left shoulder, not specified as traumatic (principal); M19.012 Primary osteoarthritis, left shoulder

== ENCOUNTER → 2019-01-07 | Outpatient (CLI) | payer MEDICARE ==
--- NOTE | 2019-01-07 16:44 | US ---
EXAMINATION TYPE: US kidneys/renal and bladder DATE OF EXAM: 01/07/2019 COMPARISON: CT 2016 CLINICAL HISTORY: R31.0 gross hematuria,R31.9 Hematuria. Hematuria. Recent UTI. EXAM MEASUREMENTS: Right Kidney: 9.9 x 4.6 x 4.5 cm Left Kidney: 8.8 x 5.1 x 6.3 cm Post Void Residual Volume: Not performed Right Kidney: No hydronephrosis or masses seen Left Kidney: No hydronephrosis or masses seen Bladder: wnl as seen Bilateral Jets seen: Yes Kidneys show normal cortical medullary differentiation. IMPRESSION: No significant abnormalities evident.
== END | disposition home or self-care (01) ==
LOC: RADUSWWP 15:34
PROVIDERS: ATTEND Urology
DX: R31.0 Gross hematuria (principal); Z88.2 Allergy status to sulfonamides; Z88.8 Allergy status to other drugs, medicaments and biological substances
CPT/HCPCS: 76770

== ENCOUNTER → 2019-04-28 | Outpatient (CLI) | payer MEDICARE ==
--- NOTE | 2019-04-28 14:23 | MM ---
Reason for exam: screening (asymptomatic). Last mammogram was performed 1 year and 2 months ago. History: Patient is postmenopausal and has history of other cancer at age 60. Family history of breast cancer in aunt at age 50 and breast cancer in aunt at age 45. Cyst aspiration of the left breast. Took estrogen for 4 years 6 months beginning at age 57. Physical Findings: A clinical breast exam by your physician is recommended on an annual basis and results should be correlated with mammographic findings. MG 3D Screening Mammo W/Cad Bilateral CC and MLO view(s) were taken. Prior study comparison: March 10, 2018, left breast MG 3d work up w/cad LT. March 05, 2018, bilateral MG 3d screening mammo w/cad. There are scattered fibroglandular densities. There are benign appearing vascular calcifications in the right breast. There is no discrete abnormality. ASSESSMENT: Negative, BI-RAD 1 RECOMMENDATION: Routine screening mammogram of both breasts in 1 year.
== END | disposition home or self-care (01) ==
LOC: RADMAMWWP 11:06
PROVIDERS: ATTEND Internal Medicine
DX: Z12.31 Encounter for screening mammogram for malignant neoplasm of breast (principal); Z13.9 Encounter for screening, unspecified
CPT/HCPCS: 77063; 77067

== ENCOUNTER → 2019-07-01 | Outpatient (CLI) | payer MEDICARE | END | disposition home or self-care (01) | LOC: LABPAT 15:54 | PROVIDERS: ATTEND Orthopaedic Surgery | DX: Z01.812 Encounter for preprocedural laboratory examination (principal); M16.12 Unilateral primary osteoarthritis, left hip | CPT/HCPCS: 87070 ==

== ENCOUNTER 2019-07-12 06:24 | Inpatient (IN) | payer MEDICARE ==
--- NOTE | 2019-07-11 18:57 | HP ---
HISTORY AND PHYSICAL DATE OF SURGERY: 07/12/2019 Lula Trujillo is a 73-year-old patient seen with symptomatic left hip osteoarthritis. We discussed treatment options. She elected to proceed with total hip arthroplasty. Consent was obtained. Medical clearance was provided by Dr. Zhou's office. PAST MEDICAL HISTORY: Hypertension, hyperlipidemia, rheumatoid arthritis. PAST SURGICAL HISTORY: Knee arthroplasty. MEDICATIONS: Crestor, furosemide, lisinopril, methotrexate, metoprolol. ALLERGIES: SULFA. SOCIAL HISTORY: She denies tobacco use. Physical evaluation of the left hip: Range of motion is severely limited with significant pain. She has a positive impingement sign. She has diffuse tenderness about the hip girdle. Straight leg raise is negative. Her distal neurovascular exam is intact. Radiographs of the left hip reveal severe osteoarthritic changes. IMPRESSION: 1. Left hip osteoarthritis. 2. Hypertension. 3. Hyperlipidemia. 4. Rheumatoid arthritis. PLAN: Direct anterior left total hip arthroplasty. MMODL / IJN: [id number] /
[~2019-07-12 06:24] MED LIST changes: +ACETAMINOPHEN TAB 500 MG TAB PO ONE; -GOLIMUMAB IV ONE; +LIDOCAINE 1% 20 ML VIAL (10MG/ML) FOR IV START INTRADERMA PRN; +MELOXICAM 7.5 MG TAB PO ONE; +MIDAZOLAM 2 MG/2 ML VIAL IV PRN; -SODIUM CHLORIDE 0.9% 250 ML in EMPTY BAG 1 BAG IV PRN; -SODIUM CHLORIDE 0.9% 500 ML in EMPTY BAG 1 BAG IV PRN; -SODIUM CHLORIDE 0.9% IV ONE; +TRANEXAMIC ACID 1,000 MG in SODIUM CHLORIDE 0.9% 100 ML IVPB ONE; +fentaNYL (PF) 50 MCG/ML 2 ML AMP IV PRN
[2019-07-12] MEDS ORDERED: DEXAMETHASONE SOD PHOSPHATE 4 MG/ML 1 ML VIAL IVP ONE (07:17)
[2019-07-12] MEDS: LACTATED RINGERS 1,000 ML IV SCH ×2 (07:17→10:49)
[2019-07-12] MEDS ORDERED: ONDANSETRON 4 MG/2 ML VIAL IVP ONE (07:18)
[2019-07-12] MEDS: ROPIVACAINE 246.25 MG, EPINEPHrine 0.5 MG, KETOROLAC 30 MG, cloNIDine HCL/PF 80 MCG, WA... MISCELLANE ONE ×10 (07:58→08:55)
[2019-07-12] MEDS ORDERED: ceFAZolin 3,000 MG in SODIUM CHLORIDE 0.9% IRRIGATIO 3,000 ML IRRIGATION ONE (07:59)
--- NOTE | 2019-07-12 09:16 | P.OP ---
Date of Procedure: 07/12/19 Preoperative Diagnosis: Left hip osteoarthritis Postoperative Diagnosis: Left hip osteoarthritis Procedure(s) Performed: Direct anterior left total hip arthroplasty Implants: 1. Depuy Corail KLA size 11 offset collar press-fit femoral stem 2. Depuy pinnacle 52 mm press-fit multi hole acetabular shell 3. Depuy pinnacle polyethylene acetabular liner neutral 36 mm ID 52 mm OD 4. Biolox delta ceramic femoral head +1.5 36 mm Anesthesia: local, spinal Surgeon: Hany Barclay Tobacco Checkout Clerk #1: Jan Liriano Estimated Blood Loss (ml): 200 Pathology: other (Femoral head) Condition: stable Disposition: PACU Indications for Procedure: 73-year-old patient seen with symptomatic left hip osteoarthritis. After treatment options were discussed, she elected to proceed with total hip arthroplasty. Operative Findings: See description of procedure Description of Procedure: The patient was taken to the operative suite. Patient underwent a spinal anesthetic by the department of anesthesia. Patient was then transferred to the [place] table. Patient was given preoperative IV antibiotics and TXA. Both lower extremities were placed in standard leg spars. The hip was then prepped and draped in the normal sterile orthopedic fashion. A standard anterior incision was made beginning 3 cm lateral and 1 cm distal to the ASIS extending 10 cm. Dissection was then carried down through the subcutaneous soft tissues down to the fascia overlying the tensor fascia layne. An incision was now made through the fascia. Careful dissection was taken down exposing the tensor fascia layne muscle. A Cobra retractor was now placed along the medial femoral neck and a second one along the lateral femoral neck. The venous circumflex vessels were now identified, cauterized and clipped. We identified the anterior hip capsule. An incision was made through the hip capsule along the lateral border. I performed a partial anterior capsulectomy. Retractors were now placed around the femoral neck itself. A femoral neck cut was now made with a sagittal saw. It was completed with an osteotome at the lateral neck area. The femoral head was now removed without difficulty. The extremity was now rotated to 45 of external rotation. It was locked in position. Residual labrum was now debrided out. Serial reaming was performed of the acetabulum while Trino ISAAC assisted holding an anterior retractor for exposure. Once we reached the appropriate size and a trial was position and fit nicely. The appropriate size was now chosen opened and made available. It was introduced into the acetabulum without difficulty. The C-arm/fluoroscopy was now brought into the operative field. We made sure we had a true AP pelvic view. We now under direct C- arm/fluoroscopy introduced into the acetabular component with appropriate version and inclination. I held the cup in appropriate position well Trino ISAAC used a mallet to seat the acetabular component. I noted the component now to be well seated and stable. Acetabular cup introduce her was removed. The C-arm was pulled back. An appropriate liner was introduced and clicked into position. It was felt to be stable. At this point retractors were removed. The extremity was now placed into 120 external rotation with no traction. The leg was now dropped to the ground and adducted. Appropriate retractors were now positioned along the proximal femur. We also placed our femoral look into position. Additional capsular releasing was performed to gain access to the proximal femur. We now used a box osteotome. A canal finder was now utilized. Serial broaching was now performed with the assistance of Trino ISAAC tapping the broaches down with a mallet while held the broach in appropriate rotation and position. This was done until we reached the appropriate size with good overall rotational stability. Appropriate calcar planing was performed. A trial head/neck was placed into position. The hip was now reduced. The C- arm/fluoroscopy was brought back into the operative field. We confirmed adequate positioning of the components. We looked had an AP pelvis and determined adequate leg length off of the lesser trochanters. The C- arm/fluoroscopy was pulled back. Retractors were repositioned and the hip was dislocated. The leg was again taken down to the ground and adducted. Appropriate retractors were repositioned as well as the femoral hook. All trial components were removed. The femoral implant was opened along with the femoral head. The femoral implant was introduced on the appropriate handle into our pre-broached area. I held the component position well Trino ISAAC used a mallet to seat the femoral component. The femoral component was now noted to be well seated and stable.. The femoral head was introduced with good positioning and fixation noted. Retractors were now removed. The hip was now reduced. There appeared be good positioning of the hip confirmed on intraoperative fluoroscopy. Spot films were obtained to document this. A second gram of TXA was given. The deep and superficial soft tissues were infiltrated with local analgesic. Bipolar cautery had been utilized intermittently through the procedure for hemostasis. The wound was irrigated copiously with pulse lavage mechanical irrigation. The fascia was repaired with Vicryl suture. The subc utaneous soft tissues were repaired in layers with Vicryl suture. The skin was approximated with pernio/Dermabond. Sterile dressings were applied. Patient was then awakened, transferred to a bed and taken to recovery in stable condition. Trino ISAAC assisted with the complex procedure.
[2019-07-12] MEDS ORDERED: HYDROmorphone 0.5 MG/0.5 ML SYRINGE IVP PRN ×3 (09:17)
[2019-07-12] MEDS ORDERED: NALOXONE 0.4 MG/ML 1 ML VIAL IV PRN (09:17)
[2019-07-12] MEDS ORDERED: ONDANSETRON 4 MG/2 ML VIAL IVP PRN (09:17)
--- NOTE | 2019-07-12 09:50 | XR ---
EXAMINATION TYPE: XR Hip Limited LT DATE OF EXAM: 07/12/2019 CLINICAL HISTORY: Left hip pain and osteoarthritis. TECHNIQUE: Single AP portable view of left hip is obtained immediately postoperatively. COMPARISON: None. FINDINGS: 2 fluoroscopic images were submitted with 26 seconds of fluoroscopy time utilized by Dr. Harper head during a left hip arthroplasty. IMPRESSION: As above
[2019-07-12] MEDS: SODIUM CHLORIDE 0.9% 1,000 ML IV SCH (10:49)
[2019-07-12] MEDS: HYDROcodone/APAP 5-325MG 1 EACH TAB PO PRN ×3 (10:51→22:47)
[2019-07-12 11:00] VITALS: BMI 26.4
[2019-07-12 12:19] LABS: ALT 19 U/L (9-52); AST 28 U/L (14-36); African American GFR (CKD) >90 (>60 ml/min/1.73 sqM); Albumin 2.9 g/dL (3.5-5.0); Alkaline Phosphatase 68 U/L (38-126); Anion Gap 5 mmol/L; Blood Urea Nitrogen 10 mg/dL (7-17); Calcium 9.4 mg/dL (8.4-10.2); Carbon Dioxide 26 mmol/L (22-30); Chloride 105 mmol/L (98-107); Glucose 132 mg/dL (74-99); Potassium 4.5 mmol/L (3.5-5.1); Sodium 136 mmol/L (137-145); Total Bilirubin 0.9 mg/dL (0.2-1.3); Total Protein 5.2 g/dL (6.3-8.2)
[2019-07-12 13:13] LABS: Basophils % (A) 0 %; Eosinophils % (A) 0 %; HCT 30.2 % (34.0-46.0); HGB 10.1 gm/dL (11.4-16.0); Lymphocytes # (A) 0.5 k/uL (1.0-4.8); Lymphocytes % (A) 7 %; MCH 33.1 pg (25.0-35.0); MCHC 33.3 g/dL (31.0-37.0); MCV 99.2 fL (80.0-100.0); Mean Platelet Volume 5.9; Monocytes # (A) 0.1 k/uL (0-1.0); Monocytes % (A) 2 %; Neutrophils # (A) 7.1 k/uL (1.3-7.7); Neutrophils % (A) 90 %; Platelet Count 265 k/uL (150-450); RBC 3.05 m/uL (3.80-5.40); RDW 12.9 % (11.5-15.5); WBC 7.8 k/uL (3.8-10.6)
--- NOTE | 2019-07-12 13:24 | P.CONS ---
History of Present Illness - Reason for Consult Consult date: 07/12/19 Medical management Requesting physician: Hany Barclay - Chief Complaint OA of the left hip - History of Present Illness This is a 73-year-old female patient of Dr. Montilla. Patient presented for an elective direct anterior total left hip arthroplasty with Dr. Barclay. Patient is currently postop day 0. Patient has a past medical history of CVA, GERD, hyperlipidemia, hypertension, rheumatoid arthritis, migraine, hyperparathyroidism, melanoma, left knee replacement and ex-smoker. Patient denies any significant history of irregular heartbeat, myocardial infarction or CHF. Patient denies history of blood clots to lungs or legs. At this time patient is resting comfortably in bed. Patient reports pain is well-controlled. Patient denies nausea vomiting or diarrhea. Patient denies any chest pain or shortness of breath. Patient denies any urinary burning or frequency. Review of Systems Please refer to HPI otherwise unremarkable Past Medical History Past Medical History: Cancer, CVA/TIA, GERD/Reflux, Hyperlipidemia, Hypertension, Rheumatoid Arthritis (RA) Additional Past Medical History / Comment(s): migraines, varicose veins, hyperparathyroidism, melanoma History of Any Multi-Drug Resistant Organisms: None Reported Past Surgical History: Appendectomy, Cholecystectomy, Joint Replacement, Orthopedic Surgery Additional Past Surgical History / Comment(s): left knee replacement, left great toe joint replacement, left wrist carpal tunnel, rt wrist thumb joint surgery, Past Anesthesia/Blood Transfusion Reactions: No Reported Reaction Past Psychological History: No Psychological Hx Reported Smoking Status: Former smoker Past Alcohol Use History: Occasional Additional Past Alcohol Use History / Comment(s): quit smoking age early 20's, smoked for 5-6 yrs Past Drug Use History: None Reported - Past Family History Mother Family Medical History: Cancer Father Family Medical History: Cancer Sister(s) Family Medical History: Cancer Medications and Allergies Home Medications Medication Instructions Recorded Confirmed Type Folic Acid 1 mg PO DAILY 04/01/15 07/12/19 History [place]-3 Fatty Acids [[place]-3] 1,000 mg PO DAILY 04/01/15 07/12/19 History Metoprolol Succinate (ER) [Toprol 50 mg PO DAILY 03/06/16 07/12/19 History XL] Bio-Cleanse 2 cap PO PC-LUNCH 05/06/18 07/12/19 History L.acidoph,Paracasei, B.lactis 2 cap PO DAILY 05/06/18 07/12/19 History [Probiotic] Methotrexate Sodium [Methotrexate] 20 mg PO TU 05/06/18 07/12/19 History Furosemide [Lasix] 20 mg PO QAM 06/19/18 07/12/19 History Lisinopril [Prinivil] 20 mg PO BID 06/19/18 07/12/19 History Multivitamins, Thera [Multivitamin 2 tab PO DAILY 06/19/18 07/12/19 History (formulary)] Cholecalciferol (Vitamin D3) 2,000 unit PO DAILY 07/06/19 07/12/19 History [Vitamin D3] Omeprazole [PriLOSEC] 20 mg PO AC-BRKFST 07/06/19 07/12/19 History Policosanol 1 tab PO BID 07/06/19 07/12/19 History Prolia(Dose Unknown) 1 injection IJ DIRECTED 07/06/19 07/12/19 History traMADol HCL [Ultram] 50 mg PO QID PRN 07/06/19 07/12/19 History Allergies Allergy/AdvReac Type Severity Reaction Status Date / Time pseudoephedrine HCl Allergy Unknown [facility] 07/06/19 15:[facility] Sulfa (Sulfonamide Allergy Unknown Verified 07/06/19 15:39 Antibiotics) Physical Exam Vitals: Vital Signs Temp Pulse Pulse Resp BP Pulse Ox 07/12/19 12:36 64 14 125/63 99 07/12/19 12:15 61 14 117/62 97 07/12/19 12:00 66 14 124/66 97 07/12/19 11:45 64 14 117/62 97 07/12/19 11:30 62 14 124/61 96 07/12/19 11:15 61 14 123/60 97 07/12/19 11:00 67 14 124/66 96 07/12/19 10:45 65 14 122/61 96 07/12/19 10:30 97.7 F 66 14 116/61 95 07/12/19 10:16 62 18 111/55 93 L 07/12/19 10:00 63 18 114/56 94 L 07/12/19 09:45 62 18 108/52 07/12/19 09:27 98.6 F 71 16 116/57 97 10/07/19 06:52 98.9 F 80 16 155/70 98 Intake and Output 07/11/19 07/12/19 07/12/19 22:59 06:59 14:59 Intake Total 1151 Output Total 200 Balance 951 Intake: IV 1151 Output: Estimated Blood Loss 200 Head normocephalic Neck supple Lungs clear to auscultation bilaterally no wheezing or crackles Heart regular rate and rhythm S1-S2, no rub or gallop Abdomen is soft nontender nondistended positive bowel sounds no hepatosp lenomegaly Extremities no edema. Left hip dressing is clean dry and intact Neuro alert and orientated to 3 Results CBC & Chem 7: 07/12/19 11:21 07/12/19 11:21 Labs: Abnormal Lab Results - Last 24 Hours (Table) 07/12/19 07/12/19 Range/Units 11:21 11:21 RBC 3.05 L (3.80-5.40) m/uL Hgb 10.1 L (11.4-16.0) gm/dL Hct 30.2 L (34.0-46.0) % Lymphocytes # 0.5 L (1.0-4.8) k/uL Sodium 136 L (137-145) mmol/L Glucose 132 H (74-99) mg/dL Total Protein 5.2 L (6.3-8.2) g/dL Albumin 2.9 L (3.5-5.0) g/dL Assessment and Plan Assessment: 1. Status post total left hip arthroplasty with Dr. Barclay. Patient is currently postop day 0. Patient on Lovenox for DVT prophylaxis. 2. History of CVA 3. History of hyperlipidemia 4. History of essential hypertension 5. History of rheumatoid arthritis. Patient reports that she does follow with molder machine 6. History of migraine 7. History of hyperparathyroidism 8. History of melanoma GI prophylaxis Pepcid. DVT prophylaxis Lovenox Patient planning to be DC'd home at time of discharge Thank you for this consultation we will continue to follow patient closely throughout stay Time with Patient: Greater than 30 (Greater than 60% of the total time spent in counseling and coordination of care. I performed an examination of the patient and discussed their management with the Nurse Practitioner. I have reviewed the Nurse Practitioner's notes and agree with the documented findings and plan of care)
[2019-07-12] MEDS: LISINOPRIL 20 MG TAB PO SCH (20:36)
[2019-07-12] MEDS ORDERED: SENNOSIDES-DOCUSATE SODIUM 1 EACH TAB PO SCH (21:00)
[2019-07-13 01:35] VITALS: TEMP 97.9
[2019-07-13] MEDS: HYDROcodone/APAP 5-325MG 1 EACH TAB PO PRN ×2 (04:54→11:35)
[2019-07-13] MEDS: LACTATED RINGERS 1,000 ML IV SCH ×2 (05:23→07:34)
[2019-07-13] MEDS: SODIUM CHLORIDE 0.9% 1,000 ML IV SCH (05:23)
[2019-07-13] MEDS: LISINOPRIL 20 MG TAB PO SCH (07:16)
[2019-07-13] MEDS ORDERED: PANTOPRAZOLE 40 MG TABLET PO SCH (07:30)
[2019-07-13 07:41] LABS: Basophils % (A) 0 %; Eosinophils % (A) 0 %; HCT 26.5 % (34.0-46.0); Lymphocytes # (A) 1.6 k/uL (1.0-4.8); Lymphocytes % (A) 16 %; Mean Platelet Volume 5.8; Monocytes # (A) 0.5 k/uL (0-1.0); Monocytes % (A) 5 %; Neutrophils # (A) 7.6 k/uL (1.3-7.7); Neutrophils % (A) 76 %; Platelet Count 239 k/uL (150-450); RBC 2.74 m/uL (3.80-5.40); RDW 12.8 % (11.5-15.5)
[2019-07-13 07:46] LABS: ALT 27 U/L (9-52); AST 36 U/L (14-36); African American GFR (CKD) >90 (>60 ml/min/1.73 sqM); Albumin 2.6 g/dL (3.5-5.0); Alkaline Phosphatase 57 U/L (38-126); Anion Gap 3 mmol/L; Blood Urea Nitrogen 11 mg/dL (7-17); Calcium 9.5 mg/dL (8.4-10.2); Carbon Dioxide 28 mmol/L (22-30); Chloride 103 mmol/L (98-107); Glucose 98 mg/dL (74-99); Potassium 4.5 mmol/L (3.5-5.1); Sodium 134 mmol/L (137-145); Total Bilirubin 0.8 mg/dL (0.2-1.3); Total Protein 4.9 g/dL (6.3-8.2)
[2019-07-13 07:51] VITALS: BP 105/67; PULSE 67; RESP 16
[2019-07-13] MEDS ORDERED: FERROUS SULFATE 325 MG TAB PO SCH (09:00)
[2019-07-13] MEDS ORDERED: FAMOTIDINE 20 MG TAB PO SCH (09:00)
[2019-07-13] MEDS ORDERED: FUROSEMIDE 20 MG TAB PO SCH (09:00)
[2019-07-13] MEDS ORDERED: METOPROLOL SUCCINATE (ER) 50 MG TAB.ER.24H PO SCH (09:00)
[2019-07-13] MEDS ORDERED: ENOXAPARIN 40 MG/0.4 ML SYRINGE SQ SCH (09:00)
[2019-07-13] MEDS ORDERED: MELOXICAM 7.5 MG TAB PO SCH (09:00)
[2019-07-13] MEDS ORDERED: FOLIC ACID 1 MG TAB PO SCH (09:00)
[2019-07-13] MEDS ORDERED: MULTIVITAMINS, THERA 1 EACH TAB PO SCH (09:00)
[2019-07-13] MEDS ORDERED: LACTOBACILLUS ACIDOPH & BULGAR 1 EACH PACKET PO SCH (09:00)
--- NOTE | 2019-07-13 10:28 | P.PN ---
Subjective Progress Note Date: 07/13/19 This is a 73-year-old female patient of Dr. Montilla. Patient presented for an elective direct anterior total left hip arthroplasty with Dr. Barclay. Patient is currently postop day 0. Patient has a past medical history of CVA, GERD, hyperlipidemia, hypertension, rheumatoid arthritis, migraine, hyp erparathyroidism, melanoma, left knee replacement and ex-smoker. Patient denies any significant history of irregular heartbeat, myocardial infarction or CHF. Patient denies history of blood clots to lungs or legs. At this time patient is resting comfortably in bed. Patient reports pain is well-controlled. Patient denies nausea vomiting or diarrhea. Patient denies any chest pain or shortness of breath. Patient denies any urinary burning or frequency. 07/13/19 Patient is alert and oriented 3. Patient states pain is well- controlled with [place]. Patient denies nausea vomiting, fever or chills, chest pain, shortness of breath, denies urinary frequency or burning. Morning lab revealed hemoglobin 9.0, likely due to surgical blood loss. Patient denies any blood in stool, blood in urine, or bleeding. Left anterior hip dressing clean dry and intact. Patient states she will be discharged home. Objective - Vital Signs Vital signs: Vital Signs Temp 97.9 F 07/13/19 06:40 Pulse 67 07/13/19 06:40 Resp 16 07/13/19 06:40 BP 105/67 07/13/19 06:40 Pulse Ox 96 07/13/19 06:40 Intake & Output 07/12/19 07/13/19 07/13/19 18:59 06:59 18:59 Intake Total 1151 550 180 Output Total 700 Balance 451 550 180 Intake: IV 1151 Intake, IV Titration 550 Amount Sodium Chloride 0.9% 1, 500 000 ml @ 50 mls/hr IV . Q20H RUTH ANN Rx#:[id number] ceFAZolin 2 gm In Sodium 50 Chloride 0.9% 50 ml @ 100 mls/hr IVPB Q8HR RUTH ANN Rx# :[id number] Oral 180 Output: Urine 500 Estimated Blood Loss 200 Other: Voiding Method Toilet # Voids 1 1 - Exam Head normocephalic Neck supple Lungs clear to auscultation bilaterally no wheezing or crackles Heart regular rate and rhythm S1-S2, no rub or gallop Abdomen is soft nontender nondistended positive bowel sounds no hepat osplenomegaly Extremities no edema. Left hip dressing CDI Neuro alert and orientated to 3 - Labs CBC & Chem 7: 07/13/19 07:10 07/13/19 07:10 Labs: Abnormal Lab Results - Last 24 Hours (Table) 07/12/19 07/12/19 07/13/19 Range/Units 11:21 11:21 07:10 RBC 3.05 L 2.74 L (3.80-5.40) m/uL Hgb 10.1 L 9.0 L (11.4-16.0) gm/dL Hct 30.2 L 26.5 L (34.0-46.0) % Lymphocytes # 0.5 L (1.0-4.8) k/uL Sodium 136 L (137-145) mmol/L Glucose 132 H (74-99) mg/dL Total Protein 5.2 L (6.3-8.2) g/dL Albumin 2.9 L (3.5-5.0) g/dL 07/13/19 Range/Units 07:10 RBC (3.80-5.40) m/uL Hgb (11.4-16.0) gm/dL Hct (34.0-46.0) % Lymphocytes # (1.0-4.8) k/uL Sodium 134 L (137-145) mmol/L Glucose (74-99) mg/dL Total Protein 4.9 L (6.3-8.2) g/dL Albumin 2.6 L (3.5-5.0) g/dL Assessment and Plan Assessment: 1. Status post total left hip arthroplasty with Dr. Barclay. Patient is currently postop day 1. Patient on Lovenox for DVT prophylaxis. 2. History of CVA 3. History of hyperlipidemia 4. History of essential hypertension 5. History of rheumatoid arthritis. Patient reports that she does follow with conventions assistant. Patient states she will resume methotrexate next week per conventions assistant. 6. History of migraine 7. History of hyperparathyroidism 8. History of melanoma 9. Expected acute blood loss anemia secondary to surgery. Ferrous sulfate 325 mg twice a day ordered. Will send patient home on per ferrous sulfate for 2 weeks, will order outpatient lab work to be drawn 2 days following discharge. Anticipate discharge within the next 24-48 hours. GI prophylaxis Pepcid. DVT prophylaxis Lovenox Patient planning to be DC'd home at time of discharge Thank you for this consultation we will continue to follow patient closely throughout stay
--- NOTE | 2019-07-13 11:29 | P.PN ---
Subjective Progress Note Date: 07/13/19 Principal diagnosis: Status post direct anterior left total hip arthroplasty Patient evaluated at bedside, resting comfortably. She has family present. She's ambulate well with therapy. Her pain is well-controlled. She denies any chest pain or shortness of breath Objective - Vital Signs Vital signs: Vital Signs Temp 97.9 F 07/13/19 06:40 Pulse 67 07/13/19 06:40 Resp 16 07/13/19 06:40 BP 105/67 07/13/19 06:40 Pulse Ox 96 07/13/19 06:40 Intake & Output 07/12/19 07/13/19 07/13/19 18:59 06:59 18:59 Intake Total 1151 550 180 Output Total 700 Balance 451 550 180 Intake: IV 1151 Intake, IV Titration 550 Amount Sodium Chloride 0.9% 1, 500 000 ml @ 50 mls/hr IV . Q20H RUTH ANN Rx#:[id number] ceFAZolin 2 gm In Sodium 50 Chloride 0.9% 50 ml @ 100 mls/hr IVPB Q8HR RUTH ANN Rx# :[id number] Oral 180 Output: Urine 500 Estimated Blood Loss 200 Other: Voiding Method Toilet # Voids 1 1 - Exam Left lower extremity: Incision is clean, dry, and intact. The exofin fusion tape is in good condition. There is minimal soft tissue swelling and ecchymosis surrounding the medial and lateral aspects of the incision. Calf is soft, no tenderness with palpation. Plantar flexion, dorsiflexion, EHL, FHL are intact. Sensory exam to light touch throughout the extremity is intact, dorsal pedis pulses 2+. - Labs CBC & Chem 7: 07/13/19 07:10 07/13/19 07:10 Labs: Abnormal Lab Results - Last 24 Hours (Table) 07/12/19 07/12/19 07/13/19 Range/Units 11:21 11:21 07:10 RBC 3.05 L 2.74 L (3.80-5.40) m/uL Hgb 10.1 L 9.0 L (11.4-16.0) gm/dL Hct 30.2 L 26.5 L (34.0-46.0) % Lymphocytes # 0.5 L (1.0-4.8) k/uL Sodium 136 L (137-145) mmol/L Glucose 132 H (74-99) mg/dL Total Protein 5.2 L (6.3-8.2) g/dL Albumin 2.9 L (3.5-5.0) g/dL 07/13/19 Range/Units 07:10 RBC (3.80-5.40) m/uL Hgb (11.4-16.0) gm/dL Hct (34.0-46.0) % Lymphocytes # (1.0-4.8) k/uL Sodium 134 L (137-145) mmol/L Glucose (74-99) mg/dL Total Protein 4.9 L (6.3-8.2) g/dL Albumin 2.6 L (3.5-5.0) g/dL Assessment and Plan Plan: Assessment: Postoperative day 1 status post direct anterior left total hip arthroplasty Plan: Pain control, plan for discharge home on oral medication GI and DVT prophylaxis, aspirin 81 mg twice a day Internal medicine prescribed for sulfate for anemia Wound care instructions discussed Icing and elevating techniques discuss Home physical therapy after discharge Medical recommendations Discharge home today Time with Patient: Less than 30
--- NOTE | 2019-07-13 11:32 | P.DS ---
Providers Date of admission: 07/12/19 06:24 Expected date of discharge: 07/13/19 Attending physician: Hany Barclay Consults: 07/12/19 09:17 Consult Physician Routine Consulting Provider: Robe Nina Consult Reason/Comments: Medical management Do you want consulting provider notified?: Yes Primary care physician: SANDI Phipps Hospital Course: Date of admission: 07/12/2019 Date of discharge: 07/13/2019 Admission diagnosis: Status post direct anterior left total hip arthroplasty Discharge diagnosis: Same Attending physician: Dr. Barclay Surgical procedures: Direct anterior left total hip arthroplasty Brief history: Patient is a 73-year-old female with a history of with progressive primary left hip osteoarthritis. At this point patient has failed conservative treatment measures and has opted to proceed with a elective direct anterior left total hip arthroplasty. Hospital course: Details of patient's surgery can be found in operative report. Patient tolerated the procedure well and was subsequently transported to orthopedic floor. Patient's orthopeidc and medical care was provided daily. Patient had daily laboratory tests performed for evaluation of overall blood counts. Patient had daily physical therapy to include strengthening range of motion as well as education with walker ambulation. Patient was treated with Lovenox for their postoperative DVT prophylaxis during their inpatient stay. Patient was noted to have a relatively uneventful postoperative course. Patient reported satisfactory pain control with oral pain medications by postoperative day 0. Patient showed satisfactory progress with physical therapy. Patient moved steadily through the program and had no difficulty meeting the goals by postoperative day 1. Given patient's otherwise satisfactory course and having met physical therapy goals, plan is to discharge patient home on postoperative day 1. Discharge condition/disposition: Patient will be discharged home in stable condition. Discharge medications: Instructions are given on resumption of patient's normal daily medications per primary care recommendation, in addition patient will be prescribed [place] 5 mg/325 mg, tramadol 50 mg, ferrous sulfate, Colace 100 mg, aspirin 81 mg. Discharge instructions: 1. Wound care and infection precautions, keep incision dry and covered while showering, no lotions, creams, moisturizers. No soaking, tubs, pools, hottubs. Do not scrub over the incision. 2. Weight-bear as tolerated with walker / cane until follow-up. 3. Ice and elevate when necessary. Do not exceed 20 minutes per hour with ice pack. 4. Utilize compression sleeve until seen at first follow up appointment. 5. Visiting nursing care. 6. Home physical therapy 7. Pain meds and anticoagulants per prescription. 8. Pain medication has potential to cause constipation. Increase oral fluid and fiber intake. Contact primary care provider if you have not had a bowel movement within 48 hours after discharge 9. No anti-inflammatory medication until discussed at first post operative visit, this including Motrin, Aleve, Mobic, Diclofenac 10. Follow up in office at 2 weeks postop with Trino Liriano PA-C 11. Follow up with your primary care doctor 7-10 days after discharge. 12. Contact [facility] with any questions, . Procedures: Direct anterior left total hip arthroplasty Patient Condition at Discharge: Good Plan - Discharge Summary Discharge Rx Participant: Yes New Discharge Prescriptions: New Ferrous Sulfate [Iron (65 MG Elemental)] 325 mg PO BID 14 Days #28 tab Aspirin [Adult Low Dose Aspirin EC] 81 mg PO BID #60 tablet. Docusate [Colace] 100 mg PO DAILY #30 capsule Hydrocodone/Acetaminophen [[place] 5-325] 1 each PO Q6HR PRN #20 tab PRN Reason: Pain traMADol HCl [Ultram] 50 mg PO Q6H PRN #28 tab PRN Reason: Pain Continue Folic Acid 1 mg PO DAILY [place]-3 Fatty Acids [[place]-3] 1,000 mg PO DAILY Metoprolol Succinate (ER) [Toprol XL] 50 mg PO DAILY L.acidoph,Paracasei, B.lactis [Probiotic] 2 cap PO DAILY Methotrexate Sodium [Methotrexate] 20 mg PO TU Bio-Cleanse 2 cap PO PC-LUNCH Furosemide [Lasix] 20 mg PO QAM Lisinopril [Prinivil] 20 mg PO BID Multivitamins, Thera [Multivitamin (formulary)] 2 tab PO DAILY Omeprazole [PriLOSEC] 20 mg PO AC-BRKFST Policosanol 1 tab PO BID Cholecalciferol (Vitamin D3) [Vitamin D3] 2,000 unit PO DAILY Prolia(Dose Unknown) 1 injection IJ DIRECTED Discontinued traMADol HCL [Ultram] 50 mg PO QID PRN PRN Reason: Pain Discharge Medication List Folic Acid 1 mg PO DAILY 04/01/15 [History] [place]-3 Fatty Acids [[place]-3] 1,000 mg PO DAILY 04/01/15 [History] Metoprolol Succinate (ER) [Toprol XL] 50 mg PO DAILY 03/06/16 [History] Bio-Cleanse 2 cap PO PC-LUNCH 05/06/18 [History] L.acidoph,Paracasei, B.lactis [Probiotic] 2 cap PO DAILY 05/06/18 [History] Methotrexate Sodium [Methotrexate] 20 mg PO TU 05/06/18 [History] Furosemide [Lasix] 20 mg PO QAM 06/19/18 [History] Lisinopril [Prinivil] 20 mg PO BID 06/19/18 [History] Multivitamins, Thera [Multivitamin (formulary)] 2 tab PO DAILY 06/19/18 [History] Cholecalciferol (Vitamin D3) [Vitamin D3] 2,000 unit PO DAILY 07/06/19 [History] Omeprazole [PriLOSEC] 20 mg PO AC-BRKFST 07/06/19 [History] Policosanol 1 tab PO BID 07/06/19 [History] Prolia(Dose Unknown) 1 injection IJ DIRECTED 07/06/19 [History] Aspirin [Adult Low Dose Aspirin EC] 81 mg PO BID #60 tablet.dr 07/13/19 [Rx] Docusate [Colace] 100 mg PO DAILY #30 capsule 07/13/19 [Rx] Ferrous Sulfate [Iron (65 MG Elemental)] 325 mg PO BID 14 Days #28 tab 07/13/19 [Rx] Hydrocodone/Acetaminophen [[place] 5-325] 1 each PO Q6HR PRN #20 tab 07/13/19 [Rx] traMADol HCl [Ultram] 50 mg PO Q6H PRN #28 tab 07/13/19 [Rx] Follow up Appointment(s)/Referral(s): [facility], [NON-STAFF] - As Needed Kirstie Rizvi NPC [Primary Care Provider] - 1-2 Days (LABS NEEDED FOR FOLLOW UP.) Jan Liriano PAC [PHYSICIAN JUNIOR AUTOMATION ENGINEER] - 2 Weeks Ambulatory/Diagnostic Orders: Complete Blood Count w/diff [LAB.AMB] Time Frame: 2 Days, Location: None Selected Patient Instructions/Handouts: Anterior Hip Replacement (DC) Activity/Diet/Wound Care/Special Instructions: Orthopedic Discharge Instructions: 1. Wound care and infection precautions, keep incision dry and covered while showering, no lotions, creams, moisturizers. No soaking, pools, hot tubs. Do not scrub over incision. 2. Weight-bear as tolerated with walker / cane until follow-up. 3. Ice and elevate when necessary. Do not exceed 20 minutes per hour with ice pack. 4. Utilize compression sleeve until seen at first follow up appointment. 5. Pain meds and anticoagulants per prescription. 6. Pain medication has potential to cause constipation. Increase oral fluid and fiber intake. Contact primary care provider if you have not had a bowel movement within 48 hours after discharge. 7. No anti-inflammatory medication until discussed at first post operative visit, this including Motrin, Aleve, Mobic, Diclofenac. 8. Follow up in office at 2 weeks postop with Trino Liriano PA-C 9. Follow up with your primary care doctor 7-10 days after discharge. 10. Contact [facility] with any questions, . Patient takes methotrexate at home. Patient was instructed by food services manager outpatient to hold methotrexate for 1 week prior to surgery in 1 week after surgery.. Patient states she'll resume methotrexate next week per her food services manager. Discharge Disposition: HOME WITH HOME HEALTH SERVICES
== END 2019-07-13 13:18 | disposition home health service (06) | DRG 470 ==
LOC: 2ORMAIN 06:24 → 4SSUR 09:20
PROVIDERS: ADMIT Orthopaedic Surgery; ATTEND Orthopaedic Surgery
PROC: 0SRB04A Replacement of Left Hip Joint with Ceramic on Polyethylene Synthetic Substitute, Uncemented, Open Approach (ICD-10-PCS; principal; 2019-07-12 07:30)
DX: M16.12 Unilateral primary osteoarthritis, left hip (principal); D62 Acute posthemorrhagic anemia; E78.5 Hyperlipidemia, unspecified; I10 Essential (primary) hypertension; I25.2 Old myocardial infarction; K21.9 Gastro-esophageal reflux disease without esophagitis; M06.9 Rheumatoid arthritis, unspecified; Z79.899 Other long term (current) drug therapy; Z85.820 Personal history of malignant melanoma of skin; Z86.73 Personal history of transient ischemic attack (TIA), and cerebral infarction without residual deficits; Z87.891 Personal history of nicotine dependence; Z96.652 Presence of left artificial knee joint; Z88.8 Allergy status to other drugs, medicaments and biological substances; G43.909 Migraine, unspecified, not intractable, without status migrainosus; Z96.698 Presence of other orthopedic joint implants; Z88.2 Allergy status to sulfonamides; Z90.49 Acquired absence of other specified parts of digestive tract
CPT/HCPCS: 36415; 73501; 80053; 85025; 86850; 86900; 86901

== ENCOUNTER 2019-07-18 17:45 | Emergency (ER) | payer MEDICARE ==
[2019-07-18 18:10] VITALS: RESP 18
--- NOTE | 2019-07-18 18:14 | ED ---
Fever HPI - General Chief Complaint: Fever Stated Complaint: Post op fever, no BM Time Seen by Provider: 07/18/19 18:11 Source: patient, family, RN notes reviewed, old records reviewed Mode of arrival: wheelchair Limitations: no limitations - History of Present Illness Initial Comments: This is a 73-year-old female today. Patient presents today for evaluation regards to fever weakness not feeling well. Patient is a postop patient left hip replacement elective. Patient had left hip surgery on the ninth his had decreased bowel movements not feeling well just generalized weakness. She does suffer from rheumatoid arthritis not able to take her main modifying medications currently is states is having increasing pain increasing pain in her joints and especially in the morning with inability to ambulate. He gave her day started secondary to muscle pain. She is taking [place] for pain that does help but she states to make her little woozy more was he doesn't feel like to be MD Complaint: weakness, other (Body aches and pains) -: days(s) Temperature Source: subjective Context: recent procedure ((Placement) Associated Symptoms: chills, myalgias Treatments Prior to Arrival: none - Related Data Home Medications Medication Instructions Recorded Confirmed Folic Acid 1 mg PO DAILY 04/01/15 07/12/19 [place]-3 Fatty Acids [[place]-3] 1,000 mg PO DAILY 04/01/15 07/12/19 Metoprolol Succinate (ER) [Toprol 50 mg PO DAILY 03/06/16 07/12/19 XL] Bio-Cleanse 2 cap PO PC-LUNCH 05/06/18 07/12/19 L.acidoph,Paracasei, B.lactis 2 cap PO DAILY 05/06/18 07/12/19 [Probiotic] Methotrexate Sodium [Methotrexate] 20 mg PO TU 05/06/18 07/12/19 Furosemide [Lasix] 20 mg PO QAM 06/19/18 07/12/19 Lisinopril [Prinivil] 20 mg PO BID 06/19/18 07/12/19 Multivitamins, Thera [Multivitamin 2 tab PO DAILY 06/19/18 07/12/19 (formulary)] Cholecalciferol (Vitamin D3) 2,000 unit PO DAILY 07/06/19 07/12/19 [Vitamin D3] Omeprazole [PriLOSEC] 20 mg PO AC-BRKFST 07/06/19 07/12/19 Policosanol 1 tab PO BID 07/06/19 07/12/19 Prolia(Dose Unknown) 1 injection IJ DIRECTED 07/06/19 07/12/19 Previous Rx's Medication Instructions Recorded Aspirin [Adult Low Dose Aspirin EC] 81 mg PO BID #60 tablet. 07/13/19 Docusate [Colace] 100 mg PO DAILY #30 capsule 07/13/19 Ferrous Sulfate [Iron (65 MG 325 mg PO BID 14 Days #28 tab 07/13/19 Elemental)] Hydrocodone/Acetaminophen [[place] 1 each PO Q6HR PRN #20 tab 07/13/19 5-325] traMADol HCl [Ultram] 50 mg PO Q6H PRN #28 tab 07/13/19 Allergies Allergy/AdvReac Type Severity Reaction Status Date / Time pseudoephedrine HCl Allergy Unknown Verified 07/18/19 19:50 [From Sudafed] Sulfa (Sulfonamide Allergy Unknown Verified 07/18/19 19:50 Antibiotics) Review of Systems ROS Statement: Those systems with pertinent positive or pertinent negative responses have been documented in the HPI. ROS Other: All systems not noted in ROS Statement are negative. Past Medical History Past Medical History: CVA/TIA, Hyperlipidemia, Hypertension, Rheumatoid Arthritis (RA) Additional Past Medical History / Comment(s): migraines, varicose veins, hyperparathyroidism, melanoma History of Any Multi-Drug Resistant Organisms: None Reported Past Surgical History: Joint Replacement, Orthopedic Surgery Additional Past Surgical History / Comment(s): 03/2017 L foot surgery. Past Anesthesia/Blood Transfusion Reactions: No Reported Reaction Past Psychological History: No Psychological Hx Reported Past Alcohol Use History: None Reported - Past Family History Mother Family Medical History: Cancer Father Family Medical History: Cancer Sister(s) Family Medical History: Cancer General Exam Limitations: no limitations General appearance: alert, in no apparent distress Head exam: Present: atraumatic, normocephalic, normal inspection Eye exam: Present: normal appearance, EOMI. Absent: scleral icterus, conjunctival injection, periorbital swelling ENT exam: Present: normal exam, mucous membranes moist Neck exam: Present: normal inspection. Absent: tenderness, meningismus, lymphadenopathy Respiratory exam: Present: normal lung sounds bilaterally. Absent: respiratory distress, wheezes, rales, rhonchi, stridor Cardiovascular Exam: Present: regular rate, normal rhythm, normal heart sounds. Absent: systolic murmur, diastolic murmur, rubs, gallop, clicks GI/Abdominal exam: Present: soft, normal bowel sounds. Absent: distended, tenderness, guarding, rebound, rigid Extremities exam: Present: normal inspection, full ROM, normal capillary refill. Absent: tenderness, pedal edema, joint swelling, calf tenderness Back exam: Present: normal inspection Neurological exam: Present: alert, oriented X3, CN II-XII intact Psychiatric exam: Present: normal affect, normal mood Skin exam: Present: warm, dry, intact, normal color. Absent: rash Course Vital Signs 07/18/19 07/18/19 07/18/19 18:02 18:22 19:28 Temperature 97.8 F 99.0 F Pulse Rate 76 76 64 Respiratory 18 18 18 Rate Blood Pressure 92/52 111/52 105/55 O2 Sat by Pulse 96 98 99 Oximetry 07/18/19 19:47 Temperature 99.0 F Pulse Rate 64 Respiratory 18 Rate Blood Pressure 105/55 O2 Sat by Pulse 99 Oximetry - Reevaluation(s) Reevaluation #1: 07/18/19 18:37 Medical record recent surgical history or review Reevaluation #2: 07/18/19 19:52 Patient able to drink here in the ER without difficulty Medical Decision Making - Medical Decision Making 83 female the ER for evaluation not feeling well decreased bowel movements, on pain medications secondary recent surgery. No current fevers here in the ER urinalysis negative x-rays negative. Patient is no acute distress encouraged increased fluid intake and can be discharged home - Lab Data Lab Results 07/18/19 Range/Units 19:00 Urine Color Yellow Urine Appearance Clear (Clear) Urine pH 7.5 (5.0-8.0) Ur Specific [place] 1.019 (1.001-1.035) Urine Protein Trace H (Negative) Urine Glucose (UA) Negative (Negative) Urine Ketones Negative (Negative) Urine Blood Negative (Negative) Urine Nitrite Negative (Negative) Urine Bilirubin Negative (Negative) Urine Urobilinogen 12.0 (<2.0) mg/dL Ur Leukocyte Esterase Moderate H (Negative) Urine RBC 4 (0-5) /hpf Urine WBC 13 H (0-5) /hpf Ur Squamous Epith Cells <1 (0-4) /hpf Hyaline Casts 15 H (0-2) /lpf Urine Mucus Occasional H (None) /hpf - Radiology Data Radiology results: report reviewed (Chest x-rays negative for acute disease), image reviewed Disposition Clinical Impression: S/P total hip arthroplasty, Constipation, Dehydration Disposition: HOME SELF-CARE Condition: Good Instructions (If sedation given, give patient instructions): Constipation (ED), Dehydration (ED) Is patient prescribed a controlled substance at d/c from ED?: No Referrals: Maki Zhou MD [Primary Care Provider] - 1-2 days
[2019-07-18 18:36] VITALS: TEMP 99
--- NOTE | 2019-07-18 19:18 | XR ---
EXAMINATION TYPE: XR abdomen acute w cxr DATE OF EXAM: 07/18/2019 COMPARISON: CT abdomen/pelvis 09/03/2016 HISTORY: Weakness, postoperative fever, hip replacement 07/12/2019 TECHNIQUE: One view chest. 2 views abdomen upright and supine. FINDINGS: Cardiomediastinal silhouette is within normal limits. No airspace consolidation. Streak-like left bas ilar atelectasis. No pleural effusion or pneumothorax. No free air. No dilated bowel. Greater than average stool burden. Right upper quadrant clips from hali or cholecystectomy. Left upper quadrant calcifications are likely vascular in etiology. Visceral shad ows are not enlarged. Left total hip arthroplasty present. IMPRESSION: Greater than average stool burden. No bowel obstruction.
[2019-07-18 19:27] LABS: Appearance,Urine Clear (Clear); Bilirubin,Urine Negative (Negative); Blood,Urine Negative (Negative); Color,Urine Yellow; Glucose,Urine (UA) Negative (Negative); Hyaline Casts,Urine 15 /lpf (0-2); Ketones,Urine Negative (Negative); Leukocyte Esterase,Urine Moderate (Negative); Mucus,Urine Occasional /hpf; Nitrite,Urine Negative (Negative); PH, Urine 7.5 (5.0-8.0); Protein,Urine Trace (Negative); RBC,Urine 4 /hpf (0-5); Specific Gravity,Urine 1.019 (1.001-1.035); Squamous Epithelial Cell,Urine <1 /hpf (0-4); WBC,Urine 13 /hpf (0-5)
[2019-07-18 19:30] VITALS: BP 105/55; PULSE 64
[2019-07-18] MEDS ORDERED: SENNOSIDES 8.6 MG TAB PO STA (19:39)
[2019-07-18] MEDS ORDERED: GLYCERIN ADULT SUPPOSITORY 1 EACH RECTAL STA (19:39)
[2019-07-18] MEDS ORDERED: MAGNESIUM CITRATE 296 ML BOTTLE PO ONE (19:39)
== END 2019-07-18 19:51 | disposition home or self-care (01) ==
LOC: EC 17:45 → SUPCPDRO 17:45 → EC 19:51
DX: K59.00 Constipation, unspecified (principal); E86.0 Dehydration; M06.9 Rheumatoid arthritis, unspecified; M79.10 Myalgia, unspecified site; I10 Essential (primary) hypertension; E78.5 Hyperlipidemia, unspecified; Z79.82 Long term (current) use of aspirin; Z79.899 Other long term (current) drug therapy; Z88.2 Allergy status to sulfonamides; Z88.8 Allergy status to other drugs, medicaments and biological substances; Z86.73 Personal history of transient ischemic attack (TIA), and cerebral infarction without residual deficits; Z96.642 Presence of left artificial hip joint
CPT/HCPCS: 74022; 81001; 99284

== ENCOUNTER → 2019-11-18 | Outpatient (CLI) | payer MEDICARE ==
--- NOTE | 2019-11-18 15:08 | US ---
EXAMINATION TYPE: US transvaginal DATE OF EXAM: 11/18/2019 COMPARISON: NONE CLINICAL HISTORY: N95.0, Postmenopausal bleeding N95.1. Spotting. TECHNIQUE: Transvaginal (TV). Date of LMP: Years ago. EXAM MEASUREMENTS: Uterus: 4.9 x 2.9 x 3.4 cm Endometrial Stripe: .5 cm 1. Uterus: Anteverted 2. Endometrium: Fluid visualized measuring .4 cm. 3. Right Ovary: Obscured by overlying bowel gas 4. Left Ovary: Obscured by overlying bowel gas 5. Bilateral Adnexa: wnl 6. Posterior cul-de-sac: wnl IMPRESSION: Abnormal endometrial fluid and upper limits of normal size of the endometrium for a postm enopausal female. Direct visualization is recommended in this patient with postmenopausal bleeding.
== END | disposition home or self-care (01) ==
LOC: RADUSWWP 14:22
PROVIDERS: ATTEND Family Medicine
DX: N95.0 Postmenopausal bleeding (principal)
CPT/HCPCS: 76830

== ENCOUNTER → 2020-02-22 | Outpatient (CLI) | payer MEDICARE ==
[2020-02-22 11:31] LABS: HCT 38.1 % (34.0-46.0); HGB 12.2 gm/dL (11.4-16.0); MCH 31.3 pg (25.0-35.0); MCV 97.9 fL (80.0-100.0); Mean Platelet Volume 7.2; Platelet Count 233 k/uL (150-450); RBC 3.89 m/uL (3.80-5.40); RDW 14.5 % (11.5-15.5)
[2020-02-22 12:22] LABS: Lymphocytes # (M) 2.22 k/uL (1.0-4.8); Monocytes # (M) 0.72 k/uL (0-1.0); Neutrophils # (M) 3.06 k/uL (1.3-7.7); Neutrophils % (M) 51 %; Nucleated Red Blood Cells 0 /100 WBC (0-0); Poikilocytosis (M) Present; Total Cells Counted 100
[2020-02-22 12:48] LABS: Erythrocyte Sedimentation Rate 32 mm/hr (0-20)
[2020-02-22 19:00] LABS: ALT 16 U/L (8-44); AST 25 U/L (13-35); African American GFR (CKD) 97.5 (60.0-200.0); C Reactive Protein <0.4 mg/dL (0.0-0.8); Non-African American GFR(CKD) 84.2 (60.0-200.0)
== END | disposition home or self-care (01) ==
LOC: LABWHC1 10:26
PROVIDERS: ATTEND Internal Medicine Rheumatology
DX: M05.79 Rheumatoid arthritis with rheumatoid factor of multiple sites without organ or systems involvement (principal)
CPT/HCPCS: 36415; 82040; 82565; 84450; 84460; 84520; 85025; 85652; 86140

== ENCOUNTER 2020-03-16 17:34 | Emergency (ER) | payer MEDICARE ==
[2020-03-16] MEDS ORDERED: ASPIRIN-ACET-CAFF 250-250-65MG 1 EACH TAB PO STA (18:03)
--- NOTE | 2020-03-16 18:21 | ED ---
General Adult HPI - General Chief complaint: Neuro Symptoms/Deficit Stated complaint: Poss stroke Time Seen by Provider: 03/16/20 17:40 Source: patient, RN notes reviewed, old records reviewed Mode of arrival: wheelchair Limitations: no limitations - History of Present Illness Initial comments: This is a 68 year old female with past medical history significant for rheumatoid arthritis and migraine headaches. Patient states she was under much stress today and she started having a visual aura which she has had in the past and it was followed by a typical headache. Patient states after little while she started getting some tingling in the left hand and her upper left leg so she became concerned so she came to the emergency department. Patient states she still has a headache that is typical of her migraine headaches. Patient currently denies any tingling she denies any weakness or any areas of numbness. Patient denies any speech disturbance. Patient denies any chest pain palpitations difficulty breathing shortness of breath. Patient denies any abdominal pain patient nausea vomiting diarrhea. - Related Data Home Medications Medication Instructions Recorded Confirmed Folic Acid 1 mg PO DAILY 04/01/15 07/18/19 [place]-3 Fatty Acids [[place]-3] 1,000 mg PO DAILY 04/01/15 07/18/19 Metoprolol Succinate (ER) [Toprol 50 mg PO DAILY 03/06/16 07/18/19 XL] Bio-Cleanse 2 cap PO PC-LUNCH 05/06/18 07/18/19 L.acidoph,Paracasei, B.lactis 2 cap PO DAILY 05/06/18 07/18/19 [Probiotic] Methotrexate Sodium [Methotrexate] 20 mg PO TU 05/06/18 07/18/19 Furosemide [Lasix] 20 mg PO QAM 06/19/18 07/18/19 Lisinopril [Prinivil] 20 mg PO BID 06/19/18 07/18/19 Multivitamins, Thera [Multivitamin 2 tab PO DAILY 06/19/18 07/18/19 (formulary)] Cholecalciferol (Vitamin D3) 2,000 unit PO DAILY 07/06/19 07/18/19 [Vitamin D3] Omeprazole [PriLOSEC] 20 mg PO AC-BRKFST 07/06/19 07/18/19 Policosanol 1 tab PO BID 07/06/19 07/18/19 Prolia(Dose Unknown) 1 injection IJ Q168D 07/06/19 07/18/19 Previous Rx's Medication Instructions Recorded Aspirin [Adult Low Dose Aspirin EC] 81 mg PO BID #60 tablet.dr 07/13/19 Docusate [Colace] 100 mg PO DAILY #30 capsule 07/13/19 Ferrous Sulfate [Iron (65 MG 325 mg PO BID 14 Days #28 tab 07/13/19 Elemental)] Hydrocodone/Acetaminophen [[place] 1 each PO Q6HR PRN #20 tab 07/13/19 5-325] traMADol HCl [Ultram] 50 mg PO Q6H PRN #28 tab 07/13/19 Allergies Allergy/AdvReac Type Severity Reaction Status Date / Time pseudoephedrine HCl Allergy Unknown Verified 03/16/20 17:39 [From Sudafed] Sulfa (Sulfonamide Allergy Unknown Verified 03/16/20 17:39 Antibiotics) Review of Systems ROS Statement: Those systems with pertinent positive or pertinent negative responses have been documented in the HPI. ROS Other: All systems not noted in ROS Statement are negative. Past Medical History Past Medical History: CVA/TIA, Hyperlipidemia, Hypertension, Rheumatoid Arthritis (RA) Additional Past Medical History / Comment(s): migraines, varicose veins, hyperparathyroidism, melanoma History of Any Multi-Drug Resistant Organisms: None Reported Past Surgical History: Joint Replacement, Orthopedic Surgery Additional Past Surgical History / Comment(s): 03/2017 L foot surgery. Past Anesthesia/Blood Transfusion Reactions: No Reported Reaction Past Psychological History: No Psychological Hx Reported Past Alcohol Use History: None Reported - Past Family History Mother Family Medical History: Cancer Father Family Medical History: Cancer Sister(s) Family Medical History: Cancer General Exam - General Exam Comments Initial Comments: GENERAL: Patient is well-developed and well-nourished. Patient is nontoxic and well- hydrated and is in mild distress. ENT: Neck is soft and supple. No significant lymphadenopathy is noted. Oropharynx is clear. Moist mucous membranes. Neck has full range of motion without eliciting any pain. EYES: The sclera were anicteric and conjunctiva were pink and moist. Extraocular movements were intact and pupils were equal round and reactive to light. Eyelids were unremarkable. PULMONARY: Unlabored respirations. Good breath sounds bilaterally. No audible rales rhonchi or wheezing was noted. CARDIOVASCULAR: There is a regular rate and rhythm without any murmurs gallops or rubs. ABDOMEN: Soft and nontender with normal bowel sounds. SKIN: Skin is clear with no lesions or rashes and otherwise unremarkable. NEUROLOGIC: Patient is alert and oriented x3. Cranial nerves II through XII are grossly intact. Motor and sensory are also intact. Normal speech, volume and content. Symmetrical smile. Patient has no signs of stroke MUSCULOSKELETAL: Normal extremities with adequate strength and full range of motion. No lower extremity swelling or edema. No calf tenderness. LYMPHATICS: No significant lymphadenopathy is noted PSYCHIATRIC: Normal psychiatric evaluation. Limitations: no limitations Course Vital Signs 03/16/20 03/16/20 03/16/20 17:37 18:20 19:58 Temperature 98.2 F Pulse Rate 88 67 65 Respiratory 16 16 18 Rate Blood Pressure 198/75 176/74 182/76 O2 Sat by Pulse 99 99 99 Oximetry Medical Decision Making - Medical Decision Making EKG shows normal sinus rhythm at 61 bpm ID interval is on a 78 QRSs 80 QT interval 436 QTC is 438. Patient's EKG shows no ST segment elevation or depression. Patient's CT of the brain showed no acute abnormality. Patient's headache was improved after she got Excedrin but it was still there so we gave her little bit of morphine and it took adequately completely. Patient had no neurologic deficit any time in the emergency department. Patient was instructed to return to the emergency department for any neuro symptoms whatsoever. - Lab Data Result diagrams: 03/16/20 17:54 03/16/20 17:54 Lab Results 03/16/20 03/16/20 03/16/20 Range/Units 17:54 17:54 17:54 WBC 6.8 (3.8-10.6) k/uL RBC 4.05 (3.80-5.40) m/uL Hgb 13.4 (11.4-16.0) gm/dL Hct 39.1 (34.0-46.0) % MCV 96.6 (80.0-100.0) fL MCH 33.1 (25.0-35.0) pg MCHC 34.3 (31.0-37.0) g/dL RDW 13.4 (11.5-15.5) % Plt Count 291 (150-450) k/uL Neutrophils % (Manual) 34 % Lymphocytes % (Manual) 62 % Monocytes % (Manual) 4 % Neutrophils # (Manual) 2.31 (1.3-7.7) k/uL Lymphocytes # (Manual) 4.22 (1.0-4.8) k/uL Monocytes # (Manual) 0.27 (0-1.0) k/uL Nucleated RBCs 0 (0-0) /100 WBC Manual Slide Review Performed Poikilocytosis (manual Present PT 10.7 (9.0-12.0) sec INR 1.0 (<1.2) APTT 24.1 (22.0-30.0) sec Sodium 130 L (137-145) mmol/L Potassium 4.8 (3.5-5.1) mmol/L Chloride 97 L (98-107) mmol/L Carbon Dioxide 24 (22-30) mmol/L Anion Gap 9 mmol/L BUN 14 (7-17) mg/dL Creatinine 0.72 (0.52-1.04) mg/dL Est GFR (CKD-EPI)AfAm >90 (>60 ml/min/1.73 sqM) Est GFR (CKD-EPI)NonAf 82 (>60 ml/min/1.73 sqM) Glucose 91 (74-99) mg/dL Calcium 10.6 H (8.4-10.2) mg/dL Total Bilirubin 1.6 H (0.2-1.3) mg/dL AST 42 H (14-36) U/L ALT 17 (4-34) U/L Alkaline Phosphatase 55 (38-126) U/L Total Protein 7.5 (6.3-8.2) g/dL Albumin 4.4 (3.5-5.0) g/dL Disposition Clinical Impression: Migraine with aura Disposition: HOME SELF-CARE Condition: Good Instructions (If sedation given, give patient instructions): Migraine Headache (ED) Is patient prescribed a controlled substance at d/c from ED?: No Referrals: Maki Zhou MD [Primary Care Provider] - 1-2 days Time of Disposition: 21:12
[2020-03-16 18:26] LABS: ALT 17 U/L (4-34); AST 42 U/L (14-36); African American GFR (CKD) >90 (>60 ml/min/1.73 sqM); Albumin 4.4 g/dL (3.5-5.0); Alkaline Phosphatase 55 U/L (38-126); Anion Gap 9 mmol/L; Blood Urea Nitrogen 14 mg/dL (7-17); Calcium 10.6 mg/dL (8.4-10.2); Carbon Dioxide 24 mmol/L (22-30); Chloride 97 mmol/L (98-107); Glucose 91 mg/dL (74-99); Non-African American GFR(CKD) 82 (>60 ml/min/1.73 sqM); Potassium 4.8 mmol/L (3.5-5.1); Sodium 130 mmol/L (137-145); Total Bilirubin 1.6 mg/dL (0.2-1.3); Total Protein 7.5 g/dL (6.3-8.2)
[2020-03-16 18:34] LABS: HCT 39.1 % (34.0-46.0); HGB 13.4 gm/dL (11.4-16.0); MCH 33.1 pg (25.0-35.0); MCHC 34.3 g/dL (31.0-37.0); MCV 96.6 fL (80.0-100.0); Mean Platelet Volume 6.9; Platelet Count 291 k/uL (150-450); RBC 4.05 m/uL (3.80-5.40); RDW 13.4 % (11.5-15.5); WBC 6.8 k/uL (3.8-10.6)
[2020-03-16 18:37] LABS: Partial Thromboplastin Time 24.1 sec (22.0-30.0); Prothrombin Time 10.7 sec (9.0-12.0)
--- NOTE | 2020-03-16 18:38 | CT ---
EXAMINATION: CT brain wo con DATE AND TIME: 03/16/2020 6:21 PM CLINICAL INDICATION: Headache with left hand and thigh tingling deficit TECHNIQUE: Standard departmental protocol.; 1027.4 COMPARISON: 08/28/2018 FINDINGS: The calvarium is intact. There is no intracranial hemorrhage. There is no intracranial mass or mass effect. Scattered nonspecific centrum semiovale and brennan radiata bilateral hypodensities are noted, statist ically usually represent small vessel ischemic change. No definite new intra-axial or extra-axial attenuation defect. The paranasal sinuses, middle ear cavities, and mastoid sinus air cells are clear. The orbits are unr emarkable. IMPRESSION: No definite acute CT process.
[2020-03-16 18:51] LABS: Lymphocytes # (M) 4.22 k/uL (1.0-4.8); Monocytes # (M) 0.27 k/uL (0-1.0); Neutrophils # (M) 2.31 k/uL (1.3-7.7); Neutrophils % (M) 34 %; Nucleated Red Blood Cells 0 /100 WBC (0-0); Total Cells Counted 100
[2020-03-16 18:53] LABS: Poikilocytosis (M) Present
[2020-03-16] MEDS ORDERED: MORPHINE SULFATE 2 MG/ML SYRINGE IVP STA (19:34)
[2020-03-16 20:00] VITALS: RESP 18
[2020-03-16] MEDS ORDERED: ONDANSETRON 4 MG/2 ML VIAL IVP STA (20:03)
[2020-03-16 21:27] VITALS: BP 172/75; PULSE 63; TEMP 98.1
== END 2020-03-16 21:27 | disposition home or self-care (01) ==
LOC: EC 17:34
DX: G43.109 Migraine with aura, not intractable, without status migrainosus (principal); R20.0 Anesthesia of skin; E78.5 Hyperlipidemia, unspecified; I10 Essential (primary) hypertension; M06.9 Rheumatoid arthritis, unspecified; Z79.899 Other long term (current) drug therapy; Z85.820 Personal history of malignant melanoma of skin; Z86.73 Personal history of transient ischemic attack (TIA), and cerebral infarction without residual deficits; Z88.2 Allergy status to sulfonamides; Z88.8 Allergy status to other drugs, medicaments and biological substances
CPT/HCPCS: 36415; 93005; 80053; 85025; 85610; 85730; 70450; 96374; 96375; 99285; J2405; J2270

== ENCOUNTER → 2020-04-07 | Outpatient (CLI) | payer MEDICARE ==
[2020-04-07 16:03] LABS: African American GFR (CKD) >90 (>60 ml/min/1.73 sqM); Blood Urea Nitrogen 14 mg/dL (7-17); Non-African American GFR(CKD) 83 (>60 ml/min/1.73 sqM)
--- NOTE | 2020-04-07 18:17 | CT ---
EXAMINATION TYPE: CT soft tissue neck w con DATE OF EXAM: 04/07/2020 COMPARISON: None HISTORY: 74-year-old female R13.10 dysphagia, R59.0 lymphadenopathy. Lymphadenopathy left side TECHNIQUE: Contiguous axial scanning of the soft tissues of the neck performed with IV Contrast, yennifer ent injected with 100 mL of Isovue 300. Coronal/sagittal reconstructions performed. CT DLP: 344.5 mGycm Automated exposure control for dose reduction was used. FINDINGS: Visualized intracranial structures, orbits and globes, paranasal sinuses, and mastoid air cells appea r clear. Leftward nasal septal deviation. Nasopharynx appears clear. Oropharynx appears clear. Epiglottis and prevertebral soft tissues within normal limits. The glottic and subglottic structures as well as the tracheal column and visualized upper lungs are c lear. Mild atherosclerotic arch calcifications with conventional arch vessel branching anatomy. The thyroid gland, submandibular glands, and parotid glands appear satisfactory. Scattered nonenlarged lymph nodes are present on both sides of the neck. No cervical lymphadenopathy identified. Bones: Moderate to advanced disc that simply degenerative change particularly from C3 through T1 leve ls. There are grade 1 spondylolistheses at C3-C6 levels and degenerative grade 1, nearly grade 2 ante rolisthesis at C7-T1. IMPRESSION: NO CERVICAL LYMPHADENOPATHY OR SUSPICIOUS NECK MASS IS IDENTIFIED. IF PERSISTENT CLINICAL SUSPICION A ND IF THERE IS A PARTICULAR SITE OF CONCERN, THE EXAM CAN BE REVIEWED WITH DIRECTED ATTENTION.
== END | disposition home or self-care (01) ==
LOC: RADCTMAIN 15:30
PROVIDERS: ATTEND Family Medicine
DX: R59.0 Localized enlarged lymph nodes (principal); R13.10 Dysphagia, unspecified
CPT/HCPCS: 82565; 84520; 70491; 36415; Q9967

== ENCOUNTER → 2020-05-01 | Outpatient (CLI) | payer MEDICARE ==
[~2020-05-01] MED LIST changes: -ACETAMINOPHEN TAB 500 MG TAB PO ONE; +DENOSUMAB 60 MG/ML 1 ML SYRINGE SQ NR; -LIDOCAINE 1% 20 ML VIAL (10MG/ML) FOR IV START INTRADERMA PRN; -MELOXICAM 7.5 MG TAB PO ONE; -MIDAZOLAM 2 MG/2 ML VIAL IV PRN; -TRANEXAMIC ACID 1,000 MG in SODIUM CHLORIDE 0.9% 100 ML IVPB ONE; -fentaNYL (PF) 50 MCG/ML 2 ML AMP IV PRN
[2020-05-01 14:12] VITALS: BP 162/75; PULSE 68; RESP 16; TEMP 97.7
== END | disposition home or self-care (01) ==
LOC: PROCWHC3 13:48
PROVIDERS: ATTEND Internal Medicine
DX: M81.0 Age-related osteoporosis without current pathological fracture (principal)
CPT/HCPCS: 96372; J0897

== ENCOUNTER → 2020-05-08 | Outpatient (CLI) | payer MEDICARE ==
--- NOTE | 2020-05-09 06:06 | MR ---
EXAMINATION TYPE: MR knee RT wo con DATE OF EXAM: 05/08/2020 COMPARISON: Outside right knee x-ray April 18, 2020 HISTORY: Pain in right knee per order. Inner knee pain since April 08. TECHNIQUE: Multiplanar, multisequence images of the knee is performed without IV contrast. FINDINGS: MEDIAL MENISCUS: Anterior horn is intact without tear. Posterior horn shows oblique and irregular sig nal appears to extend to inferior articular surface. LATERAL MENISCUS: Posterior horn is intact without tear. Anterior horn shows horizontal increased sig nal sagittal image 23 and coronal image 13 appears to extend to superior articular surface. CRUCIATE LIGAMENTS: The anterior and posterior cruciate ligaments are intact and unremarkable. COLLATERAL LIGAMENTS: The medial collateral ligament and lateral collateral ligament complex are inta ct and unremarkable. EXTENSOR MECHANISM: Visualized quadriceps and patellar tendons are intact. EFFUSION: Small suprapatellar joint effusion. POPLITEAL CYST: Small septated popliteal/cunningham cyst measuring 4.2 cm long axis sagittal image 8. TRICOMPARTMENT SPACES: Superiorly moderate tricompartment joint space loss without significant spurri ng. CARTILAGE: Evidence of chondromalacia patella with full-thickness cartilaginous loss along majority o f posterior patellar pole. Cartilaginous loss medial tibiofemoral compartment. BONE MARROW SIGNAL: No focal abnormal marrow signal is appreciated. OTHER: No additional significant abnormality is appreciated. IMPRESSION: 1. Fairly moderate tricompartment degenerative changes as detailed above. 2. Oblique full-thickness tear posterior horn medial meniscus. 3. Horizontal full-thickness tear anterior horn lateral meniscus. 4. Small septated popliteal cyst. 5. Small suprapatellar joint effusion.
== END | disposition home or self-care (01) ==
LOC: RADMRIMAIN 16:59
PROVIDERS: ATTEND Orthopaedic Surgery
DX: S83.241A Other tear of medial meniscus, current injury, right knee, initial encounter (principal); M17.11 Unilateral primary osteoarthritis, right knee; M71.21 Synovial cyst of popliteal space [Baker], right knee; M25.461 Effusion, right knee

== ENCOUNTER → 2020-05-19 | Outpatient (CLI) | payer MEDICARE | END | disposition home or self-care (01) | LOC: LABWHC1 10:11 | PROVIDERS: ATTEND Nurse Practitioner Family | DX: J02.9 Acute pharyngitis, unspecified (principal); R59.0 Localized enlarged lymph nodes; R11.0 Nausea | CPT/HCPCS: U0003; C9803 ==

== ENCOUNTER → 2020-06-05 | Outpatient (CLI) | payer MEDICARE ==
--- NOTE | 2020-06-05 17:09 | BD ---
EXAMINATION TYPE: Axial Bone Density DATE OF EXAM: 06/05/2020 COMPARISON: NONE CLINICAL HISTORY: Height: 63.5 Weight: 150.3 FRAX RISK QUESTIONS: Alcohol (3 or more units per day): NO Family History (Parent hip fracture): no Glucocorticoids (More than 3mos): no (Ex: prednisone, prednisolone, methylprednisolone, dexamethasone, and hydrocortisone). History of Fracture in Adulthood: no Secondary Osteoporosis: 1. Type 1 Diabetes: no 2. Hyperthyroidism: no 3. Menopause before 45: no 4. Malnutrition: no 5. Chronic liver disease: no Rheumatoid Arthritis: yes Current Tobacco Use: no RISK FACTORS HISTORY OF: Surgery to Spine/Hip(right/left)/Wrist (right/left): left hip replaced Family History of Osteoporosis: no Active: yes Diet low in dairy products/other sources of calcium: no Postmenopausal woman: age 55 Lost more than 2 inches in height since high school: yes MEDICATIONS: lisinopril, Metroprolol, methotrexate, embral, iron pills Osteoporosis Medications: Prolia How Lon total shots Additional History: EXAM MEASUREMENTS: Bone mineral densitometry was performed using the [employer]. Bone mineral density as measured about the Lumbar spine is: ----- L1-L4(G/cm2): 1.114 T Score Values are as follows: ----- L2: -1.2 ----- L3: -0.8 ----- L4: 0.1 ----- L1-L4: -0.6 Bone mineral density has: increased 0.7 % since study of: 1..2006 Bone mineral density about the R hip (g/cm2): 0.785 T Score values are as follows: -----R Neck: -1.8 -----R Total: -0.4 Bone mineral density has: decreased -9.8 % since study of: 1..2006 IMPRESSION: Normal (Values between +1 and -1 indicate normal bone mass). Consider repeating this study in 5 year s or sooner if there is some new clinical indication. NOTE: T-SCORE=SD OF THE YOUNG ADULT MEAN.
--- NOTE | 2020-06-06 09:23 | MM ---
Reason for exam: screening (asymptomatic). Last mammogram was performed 1 year and 1 month ago. History: Patient is postmenopausal and has history of other cancer at age 60. Family history of breast cancer in aunt at age 50 and breast cancer in aunt at age 45. Cyst aspiration of the left breast. Took estrogen for 4 years 6 months beginning at age 57. Physical Findings: A clinical breast exam by your physician is recommended on an annual basis and results should be correlated with mammographic findings. MG 3D Screening Mammo W/Cad Bilateral CC and MLO view(s) were taken. Prior study comparison: April 28, 2019, bilateral MG 3d screening mammo w/cad. March 10, 2018, left breast MG 3d work up w/cad LT. The breast tissue is heterogeneously dense. This may lower the sensitivity of mammography. There are benign appearing vascular calcifications bilaterally. Asymmetric breast tissue left subareolar, stable. There is no discrete abnormality. ASSESSMENT: Benign, BI-RAD 2 RECOMMENDATION: Routine screening mammogram of both breasts in 1 year.
== END | disposition home or self-care (01) ==
LOC: RADMAMWWP 10:55
PROVIDERS: ATTEND Family Medicine
DX: Z12.31 Encounter for screening mammogram for malignant neoplasm of breast (principal); M84.9 Disorder of continuity of bone, unspecified; Z78.0 Asymptomatic menopausal state
CPT/HCPCS: 77063; 77067; 77080

== ENCOUNTER → 2020-06-07 | Outpatient (CLI) | payer MEDICARE ==
--- NOTE | 2020-06-07 11:42 | US ---
LOWER EXTREMITY VENOUS INSUFFICIENCY CLINICAL HISTORY: I87.2 Venous insufficiency (chronic) (peripheral). SIDE PERFORMED: 1) Color flow is present and patency is documented in the following vessels. No DVT or SVT is noted . EIV Common Femoral Vein Deep Femoral Vein Femoral Vein Popliteal Vein Proximal Calf Veins Greater Saph Vein Upper Small Saph Vein 2) There is venous reflux noted at the following venous levels: Right: EIV, CFV, GSV IMPRESSION: Reflux as noted above.
== END | disposition home or self-care (01) ==
LOC: RADUSWWP 09:32
PROVIDERS: ATTEND Family Medicine
DX: I87.2 Venous insufficiency (chronic) (peripheral) (principal)
CPT/HCPCS: 93923; 93970

== ENCOUNTER 2020-09-07 17:05 | Observation (INO) | payer MEDICARE ==
[2020-09-07] MEDS ORDERED: SODIUM CHLORIDE 0.9% 1,000 ML IV STA (17:44)
--- NOTE | 2020-09-07 17:55 | ED ---
General Adult HPI - General Chief complaint: Syncope Stated complaint: Almost passed out/High BP Time Seen by Provider: 09/07/20 17:22 Source: patient Mode of arrival: wheelchair Limitations: no limitations - History of Present Illness Initial comments: 74 year-old female patient presents to the emergency department today for evaluation after having a near syncopal episode. Patient states she was driving to [employer] this morning and had to pot puller because she felt very dizzy like she is going to pass out. Patient states since that episode she has been feeling somewhat confused and foggy. States that upon arrival to her ER exam room she had another episode where she felt like she was going to pass out. She states she did have a mild headache this afternoon around 145, she does have Fioricet from her neurologist she did take a tablet and this did improve her headache. She denies any current headache, blurred vision, double vision. Denies numbness, tingling, weakness to her extremities. States she does feel mildly nauseated but has not vomited. States she is eating and drinking without difficulty. Denies any fever or chills denies any hematuria, dysuria, urinary frequency, urinary urgency. Patient states that she has had similar episodes in the past and has been fully evaluated by cardiology and neurology without any significant findings. Patient denies any recent rash, cough, abdominal pain, nausea, vomiting, diarrhea, constipation, back pain, headache, visual changes, or any other complaints. - Related Data Home Medications Medication Instructions Recorded Confirmed Metoprolol Succinate (ER) [Toprol 50 mg PO DAILY 03/06/16 09/07/20 XL] L.acidoph,Paracasei, B.lactis 2 cap PO DAILY 05/06/18 09/07/20 [Probiotic] metHOTREXate sodium [Methotrexate] 20 mg PO TU 05/06/18 09/07/20 Multivitamins, Thera [Multivitamin 2 tab PO DAILY 06/19/18 09/07/20 (formulary)] lisinopriL [Prinivil] 20 mg PO BID 06/19/18 09/07/20 Cholecalciferol (Vitamin D3) 2,000 unit PO DAILY 07/06/19 09/07/20 [Vitamin D3] Omeprazole [PriLOSEC] 20 mg PO AC-BRKFST 07/06/19 09/07/20 Prolia(Dose Unknown) 1 injection IJ Q168D 07/06/19 09/07/20 Black Current Seed Oil (Unknown 2 tab PO DAILY 09/07/20 09/07/20 Strength) Butalb/Asprin/Caff 50-325-40Mg 1 tab PO Q4-6H PRN 09/07/20 09/07/20 [Fiorinal 50-325-40 MG] Comfort Tone (Unknown Strength) 1 tab PO HS 09/07/20 09/07/20 Etanercept [Enbrel Sureclick] 50 mg SQ SA 09/07/20 09/07/20 Ferrous Sulfate [Iron (65 MG 325 mg PO Q48H 09/07/20 09/07/20 Elemental)] Ibuprofen [Motrin Ib] 200 mg PO Q4-6H PRN 09/07/20 09/07/20 L-5-Mthf (Folate) 1700mcg 1 tab PO DAILY 09/07/20 09/07/20 Ningxia Red (Unknown Strength) 1 dose PO DAILY 09/07/20 09/07/20 [place]-3 Fatty Acids/Fish Oil [Fish 1 cap PO DAILY 09/07/20 09/07/20 Oil 1,000 mg Softgel] Osteoforce (Unknown Strength) 1 tab PO DAILY 09/07/20 09/07/20 Policosanol (20mg) 1 tab PO BID 09/07/20 09/07/20 Super D Supplement (Unknown 1 tab PO DAILY 09/07/20 09/07/20 Strength) hydroCHLOROthiazide [Hydrodiuril] 25 mg PO DAILY 09/07/20 09/07/20 Allergies Allergy/AdvReac Type Severity Reaction Status Date / Time pseudoephedrine HCl Allergy Unknown Verified 09/07/20 19:52 [From Sudafed] Sulfa (Sulfonamide Allergy Unknown Verified 09/07/20 19:52 Antibiotics) Review of Systems ROS Statement: Those systems with pertinent positive or pertinent negative responses have been documented in the HPI. ROS Other: All systems not noted in ROS Statement are negative. Past Medical History Past Medical History: CVA/TIA, Hyperlipidemia, Hypertension, Rheumatoid Arthritis (RA) Additional Past Medical History / Comment(s): migraines, varicose veins, hyperparathyroidism, melanoma History of Any Multi-Drug Resistant Organisms: None Reported Past Surgical History: Joint Replacement, Orthopedic Surgery Additional Past Surgical History / Comment(s): 03/2017 L foot surgery. left hip replacement Jul, 2018 Past Anesthesia/Blood Transfusion Reactions: No Reported Reaction Past Psychological History: No Psychological Hx Reported Smoking Status: Former smoker Past Alcohol Use History: Rare Past Drug Use History: None Reported - Past Family History Mother Family Medical History: Cancer Father Family Medical History: Cancer Sister(s) Family Medical History: Cancer General Exam Limitations: no limitations General appearance: alert, in no apparent distress, other (This is a well- developed, well-nourished elderly female patient in no acute distress. Vital signs upon presentation are temperature 98.3F, pulse 70, respirations 18, blood pressure 204/96, pulse ox 99% on room air.) Eye exam: Present: normal appearance, PERRL, EOMI. Absent: scleral icterus, conjunctival injection, nystagmus, periorbital swelling Respiratory exam: Present: normal lung sounds bilaterally. Absent: respiratory distress, wheezes, rales, rhonchi, stridor Cardiovascular Exam: Present: regular rate, normal rhythm, normal heart sounds. Absent: systolic murmur, diastolic murmur, rubs, gallop, clicks GI/Abdominal exam: Present: soft, normal bowel sounds. Absent: distended, tenderness, guarding, rebound, rigid Neurological exam: Present: alert, oriented X3, CN II-XII intact, other (Str ength in all 4 extremities 5/5.) Psychiatric exam: Present: normal affect, normal mood Skin exam: Present: warm, dry, intact, normal color. Absent: rash Course Vital Signs 09/07/20 09/07/20 09/07/20 17:11 18:40 18:44 Temperature 98.3 F Pulse Rate 70 63 62 Pulse Rate [ Private Investigator ] Respiratory 18 18 Rate Blood Pressure 204/96 181/74 Blood Pressure [Right Arm Sitting] Blood Pressure [Right Arm Standing] Blood Pressure [Right Arm Supine] O2 Sat by Pulse 99 Oximetry 09/07/20 09/07/20 19:29 20:41 Temperature Pulse Rate 64 Pulse Rate [ 60 Private Investigator ] Respiratory 16 16 Rate Blood Pressure 177/87 Blood Pressure 155/76 [Right Arm Sitting] Blood Pressure 140/80 [Right Arm Standing] Blood Pressure 149/69 [Right Arm Supine] O2 Sat by Pulse 98 Oximetry EKG Findings - EKG Comments: EKG Findings:: EKG obtained at 1758 shows normal sinus rhythma with vent rate of 63, ID interval 190, QRS duration 86, QT 424, QTc 433. No evidence of ST elevation or depression. Medical Decision Making - Medical Decision Making 74 year-old female patient presents to the emergency department today for evaluation of near-syncope. She's had 2 episodes today. Patient states she is also felt foggy throughout the day. Physical examination is unremarkable. She is neurologically intact no focal deficits. Patient did not have any abnormal orthostatic vital signs. We did perform labs which were unremarkable. Chest x- ray is negative. CT brain was negative. Patient still reports feeling unwell upon reevaluation soiled mid to the hospital for further evaluation. They are going the morning. Cardiology consultation. She agrees with this plan. - Lab Data Result diagrams: 09/07/20 17:59 09/07/20 17:59 Lab Results 09/07/20 09/07/20 09/07/20 Range/Units 17:59 17:59 17:59 WBC 7.6 (3.8-10.6) k/uL RBC 4.34 (3.80-5.40) m/uL Hgb 14.0 (11.4-16.0) gm/dL Hct 41.6 (34.0-46.0) % MCV 95.9 (80.0-100.0) fL MCH 32.4 (25.0-35.0) pg MCHC 33.7 (31.0-37.0) g/dL RDW 12.9 (11.5-15.5) % Plt Count 292 (150-450) k/uL MPV 6.4 Neutrophils % 38 % Lymphocytes % 52 % Monocytes % 4 % Eosinophils % 2 % Basophils % 0 % Neutrophils # 2.9 (1.3-7.7) k/uL Lymphocytes # 3.9 (1.0-4.8) k/uL Monocytes # 0.3 (0-1.0) k/uL Eosinophils # 0.1 (0-0.7) k/uL Basophils # 0.0 (0-0.2) k/uL PT 9.5 (9.0-12.0) sec INR 0.9 (<1.2) APTT 24.9 (22.0-30.0) sec Sodium (137-145) mmol/L Potassium (3.5-5.1) mmol/L Chloride (98-107) mmol/L Carbon Dioxide (22-30) mmol/L Anion Gap mmol/L BUN (7-17) mg/dL Creatinine (0.52-1.04) mg/dL Est GFR (CKD-EPI)AfAm (>60 ml/min/1.73 sqM) Est GFR (CKD-EPI)NonAf (>60 ml/min/1.73 sqM) Glucose (74-99) mg/dL Calcium (8.4-10.2) mg/dL Total Bilirubin (0.2-1.3) mg/dL AST (14-36) U/L ALT (4-34) U/L Alkaline Phosphatase (38-126) U/L Troponin I (0.000-0.034) ng/mL Total Protein (6.3-8.2) g/dL Albumin (3.5-5.0) g/dL Urine Color Light Yellow Urine Appearance Clear (Clear) Urine pH 7.5 (5.0-8.0) Ur Specific [place] 1.007 (1.001-1.035) Urine Protein Negative (Negative) Urine Glucose (UA) Negative (Negative) Urine Ketones Negative (Negative) Urine Blood Negative (Negative) Urine Nitrite Negative (Negative) Urine Bilirubin Negative (Negative) Urine Urobilinogen <2.0 (<2.0) mg/dL Ur Leukocyte Esterase Large H (Negative) Urine RBC 2 (0-5) /hpf Urine WBC 22 H (0-5) /hpf 09/07/20 09/07/20 Range/Units 17:59 17:59 WBC (3.8-10.6) k/uL RBC (3.80-5.40) m/uL Hgb (11.4-16.0) gm/dL Hct (34.0-46.0) % MCV (80.0-100.0) fL MCH (25.0-35.0) pg MCHC (31.0-37.0) g/dL RDW (11.5-15.5) % Plt Count (150-450) k/uL MPV Neutrophils % % Lymphocytes % % Monocytes % % Eosinophils % % Basophils % % Neutrophils # (1.3-7.7) k/uL Lymphocytes # (1.0-4.8) k/uL Monocytes # (0-1.0) k/uL Eosinophils # (0-0.7) k/uL Basophils # (0-0.2) k/uL PT (9.0-12.0) sec INR (<1.2) APTT (22.0-30.0) sec Sodium 131 L (137-145) mmol/L Potassium 4.0 (3.5-5.1) mmol/L Chloride 96 L (98-107) mmol/L Carbon Dioxide 29 (22-30) mmol/L Anion Gap 6 mmol/L BUN 14 (7-17) mg/dL Creatinine 0.75 (0.52-1.04) mg/dL Est GFR (CKD-EPI)AfAm 90 (>60 ml/min/1.73 sqM) Est GFR (CKD-EPI)NonAf 78 (>60 ml/min/1.73 sqM) Glucose 100 H (74-99) mg/dL Calcium 11.1 H (8.4-10.2) mg/dL Total Bilirubin 1.3 (0.2-1.3) mg/dL AST 38 H (14-36) U/L ALT 22 (4-34) U/L Alkaline Phosphatase 60 (38-126) U/L Troponin I <0.012 (0.000-0.034) ng/mL Total Protein 7.9 (6.3-8.2) g/dL Albumin 4.7 (3.5-5.0) g/dL Urine Color Urine Appearance (Clear) Urine pH (5.0-8.0) Ur Specific [place] (1.001-1.035) Urine Protein (Negative) Urine Glucose (UA) (Negative) Urine Ketones (Negative) Urine Blood (Negative) Urine Nitrite (Negative) Urine Bilirubin (Negative) Urine Urobilinogen (<2.0) mg/dL Ur Leukocyte Esterase (Negative) Urine RBC (0-5) /hpf Urine WBC (0-5) /hpf - Radiology Data Radiology results: report reviewed, image reviewed CT brain without contrast is obtained. Report is reviewed in its entirety. Impression by Dr. Elias shows mild atrophy and chronic small vessel ischemia. No acute intracranial abnormality. No significant change compared to old exam. Two-view x-ray of the chest is obtained. Report was reviewed in its entirety. Impression by Dr. Elias shows no active cardiopulmonary disease. Normal heart. No adverse change. Disposition Clinical Impression: Near syncope, Dizziness Disposition: ADMITTED IP TO THIS [facility] Condition: Serious Decision to Admit Reason: Admit from EC Decision Date: 09/07/20 Decision Time: 20:28
[2020-09-07 18:14] LABS: Basophils % (A) 0 %; Eosinophils # (A) 0.1 k/uL (0-0.7); Eosinophils % (A) 2 %; HCT 41.6 % (34.0-46.0); Lymphocytes # (A) 3.9 k/uL (1.0-4.8); Lymphocytes % (A) 52 %; MCH 32.4 pg (25.0-35.0); MCHC 33.7 g/dL (31.0-37.0); MCV 95.9 fL (80.0-100.0); Mean Platelet Volume 6.4; Monocytes # (A) 0.3 k/uL (0-1.0); Monocytes % (A) 4 %; Neutrophils # (A) 2.9 k/uL (1.3-7.7); Neutrophils % (A) 38 %; Platelet Count 292 k/uL (150-450); RBC 4.34 m/uL (3.80-5.40); RDW 12.9 % (11.5-15.5); WBC 7.6 k/uL (3.8-10.6)
[2020-09-07 18:24] LABS: Albumin 4.7 g/dL (3.5-5.0); Calcium 11.1 mg/dL (8.4-10.2); Total Bilirubin 1.3 mg/dL (0.2-1.3); Total Protein 7.9 g/dL (6.3-8.2)
--- NOTE | 2020-09-07 18:27 | XR ---
EXAMINATION TYPE: XR chest 2V DATE OF EXAM: 09/07/2020 COMPARISON: 07/18/2019 HISTORY: Syncope TECHNIQUE: FINDINGS: Heart and mediastinum are within normal limits. Lungs are clear. Diaphragm is normal. There is no evidence of pleural effusion. There are no hilar masses. There are chest leads. Bony thorax is intact. IMPRESSION: No active cardiopulmonary disease. Normal heart. No adverse change.
[2020-09-07 18:29] LABS: INR 0.9 (<1.2); Partial Thromboplastin Time 24.9 sec (22.0-30.0); Prothrombin Time 9.5 sec (9.0-12.0)
--- NOTE | 2020-09-07 18:43 | CT ---
EXAMINATION TYPE: CT brain wo con DATE OF EXAM: 09/07/2020 COMPARISON: 03/16/2020 HISTORY: Near syncope and hypertension. CT DLP: 1035.4 mGycm Automated exposure control for dose reduction was used. There is patchy hypodensity in the periventricular white matter. There is no mass effect nor midline shift. There is no sign of intracranial hemorrhage. There is minimal cerebral atrophy. Calvarium is i ntact. IMPRESSION: Mild atrophy and chronic small vessel ischemia. No acute intracranial abnormality. No significant magnus nge compared to old exam.
[2020-09-07 18:46] LABS: Appearance,Urine Clear (Clear); Bilirubin,Urine Negative (Negative); Blood,Urine Negative (Negative); Color,Urine Light Yellow; Glucose,Urine (UA) Negative (Negative); Ketones,Urine Negative (Negative); Leukocyte Esterase,Urine Large (Negative); Nitrite,Urine Negative (Negative); PH, Urine 7.5 (5.0-8.0); Protein,Urine Negative (Negative); RBC,Urine 2 /hpf (0-5); Specific Gravity,Urine 1.007 (1.001-1.035); Urobilinogen,Urine <2.0 mg/dL (<2.0); WBC,Urine 22 /hpf (0-5)
[2020-09-07] MEDS ORDERED: NALOXONE 0.4 MG/ML 1 ML VIAL IV PRN (20:24)
[2020-09-07] MEDS ORDERED: SODIUM CHLORIDE 0.9% 1,000 ML IV SCH (20:30)
--- NOTE | 2020-09-07 23:46 | P.HPIM ---
History of Present Illness H&P Date: 09/07/20 The patient is a 74-year-old female with a PMH of hypertension, hyperlipidemia, and rheumatoid arthritis who presented to the emergency room after an episode of syncope. 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 There was a person in the car working on her stereo who did not seem alarmed. The patient subsequently regained consciousness 10-15 seconds later. Denied experiencing chest discomfort, palpitations, shortness of breath, shaking movements, urinary incontinence, or tongue biting. Denied nausea, vomiting, diaphoresis. She then drove herself 5 minutes away to her [employer], where she drank some juice and ate snacks after which she felt better. She then drove herself home and sat on her couch to rest. She checked her blood pressure which was elevated at 170s over 90s. She took a Fioricet for developing headache and 10 minutes later again felt lightheaded, though she did not faint. She then decided to call the [facility] and was brought to the emergency room at around 5 PM. She reports that over the past few days she has not been drinking as much water for no clear reason. She denied urinary or GI complaints. Denied recent diarrhea or vomiting. Also denied experiencing visual disturbances, facial asymmetry, slurred speech, weakness, numbness, tingling. The patient underwent an extensive evaluation in the emergency room with orthostatic vital signs that were unremarkable. EKG revealed normal sinus rhythm at 63 bpm with left axis deviation. Brain CT was negative for acute abnormalities. Chest x-ray was unremarkable. Laboratory evaluation revealed a sodium 131, chloride 96, calcium 11.1, and AST 38. Review of Systems Pertinent positives and negatives as discussed in HPI, a complete review of systems was performed and all other systems are negative. Past Medical History Past Medical History: CVA/TIA, Hyperlipidemia, Hypertension, Rheumatoid Arthritis (RA) Additional Past Medical History / Comment(s): migraines, varicose veins, hyperparathyroidism, melanoma History of Any Multi-Drug Resistant Organisms: None Reported Past Surgical History: Joint Replacement, Orthopedic Surgery Additional Past Surgical History / Comment(s): 03/2017 L foot surgery. left hip replacement Jul, 2018 Past Anesthesia/Blood Transfusion Reactions: No Reported Reaction Past Psychological History: No Psychological Hx Reported Smoking Status: Former smoker Past Alcohol Use History: Rare Past Drug Use History: None Reported - Past Family History Mother Family Medical History: Cancer Father Family Medical History: Cancer Sister(s) Family Medical History: Cancer Medications and Allergies Home Medications Medication Instructions Recorded Confirmed Type Metoprolol Succinate (ER) [Toprol 50 mg PO DAILY 03/06/16 09/07/20 History XL] L.acidoph,Paracasei, B.lactis 2 cap PO DAILY 05/06/18 09/07/20 History [Probiotic] metHOTREXate sodium [Methotrexate] 20 mg PO TU 05/06/18 09/07/20 History Multivitamins, Thera [Multivitamin 2 tab PO DAILY 06/19/18 09/07/20 History (formulary)] lisinopriL [Prinivil] 20 mg PO BID 06/19/18 09/07/20 History Cholecalciferol (Vitamin D3) 2,000 unit PO DAILY 07/06/19 09/07/20 History [Vitamin D3] Omeprazole [PriLOSEC] 20 mg PO AC-BRKFST 07/06/19 09/07/20 History Prolia(Dose Unknown) 1 injection IJ Q168D 07/06/19 09/07/20 History Black Current Seed Oil (Unknown 2 tab PO DAILY 09/07/20 09/07/20 History Strength) Butalb/Asprin/Caff 50-325-40Mg 1 tab PO Q4-6H PRN 09/07/20 09/07/20 History [Fiorinal 50-325-40 MG] Comfort Tone (Unknown Strength) 1 tab PO HS 09/07/20 09/07/20 History Etanercept [Enbrel Sureclick] 50 mg SQ SA 09/07/20 09/07/20 History Ferrous Sulfate [Iron (65 MG 325 mg PO Q48H 09/07/20 09/07/20 History Elemental)] Ibuprofen [Motrin Ib] 200 mg PO Q4-6H PRN 09/07/20 09/07/20 History L-5-Mthf (Folate) 1700mcg 1 tab PO DAILY 09/07/20 09/07/20 History Ningxia Red (Unknown Strength) 1 dose PO DAILY 09/07/20 09/07/20 History [place]-3 Fatty Acids/Fish Oil [Fish 1 cap PO DAILY 09/07/20 09/07/20 History Oil 1,000 mg Softgel] Osteoforce (Unknown Strength) 1 tab PO DAILY 09/07/20 09/07/20 History Policosanol (20mg) 1 tab PO BID 09/07/20 09/07/20 History Super D Supplement (Unknown 1 tab PO DAILY 09/07/20 09/07/20 History Strength) hydroCHLOROthiazide [Hydrodiuril] 25 mg PO DAILY 09/07/20 09/07/20 History Allergies Allergy/AdvReac Type Severity Reaction Status Date / Time pseudoephedrine HCl Allergy Unknown Verified 09/07/20 19:52 [From Sudafed] Sulfa (Sulfonamide Allergy Unknown Verified 09/07/20 19:52 Antibiotics) Physical Exam Vitals: Vital Signs Temp Pulse Pulse Resp BP BP BP 09/07/20 20:41 64 16 177/87 09/07/20 19:29 60 16 155/76 140/80 09/07/20 18:44 62 18 181/74 09/07/20 18:40 63 09/07/20 17:11 98.3 F 70 18 204/96 BP Pulse Ox 09/07/20 20:41 98 09/07/20 19:29 149/69 09/07/20 18:44 09/07/20 18:40 09/07/20 17:11 99 Intake and Output 09/07/20 09/07/20 09/07/20 06:59 14:59 22:59 Other: Weight 70.307 kg General: non toxic, no distress, appears at stated age, normal weight Derm: no unusual rashes/lesions no unusual ecchymoses, warm, dry Head: atraumatic, normocephalic, symmetric Eyes: EOMI, no lid lag, anicteric sclera, pupils equal round reactive to light ENT: Nose and ears atraumatic, no thrush, no pharyngeal erythema Neck: No thyromegaly, no cervical lymphadenopathy, trachea midline, supple Mouth: no lip lesion, mucus membranes moist Cardiovascular: S1S2 reg, no murmur, positive posterior tibial pulse bilateral, no edema, capillary refill less than 2 seconds Lungs: CTA bilateral, no rhonchi, no rales , no accessory muscle use Abdominal: soft, nontender to palpation, no guarding, no appreciable organomegaly, normal bowel sounds Ext: no gross muscle atrophy, muscle strength 5 out of 5 in all 4 extremities grossly, no contractures, Neuro: CN II-XI grossly intact, light touch intact all 4 extremities, finger to nose within normal limits, Psych: Alert, oriented, appropriate affect Results CBC & Chem 7: 09/07/20 17:59 12 17:59 Labs: Abnormal Lab Results - Last 24 Hours (Table) 09/07/20 09/07/20 Range/Units 17:59 17:59 Sodium 131 L (137-145) mmol/L Chloride 96 L (98-107) mmol/L Glucose 100 H (74-99) mg/dL Calcium 11.1 H (8.4-10.2) mg/dL AST 38 H (14-36) U/L Ur Leukocyte Esterase Large H (Negative) Urine WBC 22 H (0-5) /hpf Assessment and Plan Plan: Syncope, unclear etiology - possibly orthostatic in setting of poor oral intake and dehydration -Obtain echocardiogram -Cardiac monitoring -Consider outpatient neurology evaluation for tilt table testing -Patient advised to refrain from driving for at least 6 months -Continue with IV fluids Hypochloremic hyponatremia -Possibly secondary to dehydration with poor oral intake -Monitor BMP for now Chronic conditions: Hypertension, hyperlipidemia, rheumatoid arthritis -Continue with home medications DVT prophylaxis -Heparin subq The patient is admitted with an anticipated less than 2 midnight stay for evaluation of syncope CODE STATUS: Full Code Discussed with: Patient Anticipated discharge date: in am Anticipated discharge place: Home A total of 35 minutes was spent on the care of this complex patient more than 50% of the time was spent in counseling and care coordination.
[2020-09-08] MEDS: HEPARIN SODIUM,PORCINE 5,000 UNIT/ML 1 ML VIAL SQ SCH ×2 (01:19→09:51)
[2020-09-08 08:29] VITALS: TEMP 97.4
[2020-09-08 08:40] LABS: Glucose,Whole Blood 98 mg/dL (75-99)
[2020-09-08] MEDS ORDERED: lisinopriL 20 MG TAB PO SCH (09:00)
[2020-09-08] MEDS ORDERED: METOPROLOL SUCCINATE (ER) 50 MG TAB.ER.24H PO SCH (09:00)
[2020-09-08] MEDS ORDERED: MTHF PO SCH (09:00)
--- NOTE | 2020-09-08 11:00 | ECHOF ---
Referral Reason:Near syncope MEASUREMENTS -------- HEIGHT: 162.6 cm WEIGHT: 70.3 kg BP: RVIDd: 2.3 cm (< 3.3) IVSd: 0.9 cm (0.6 - 1.1) LVIDd: 3.8 cm (3.9 - 5.3) LVPWd: 1.3 cm (0.6 - 1.1) IVSs: 1.3 cm LVIDs: 2.5 cm LVPWs: 1.4 cm LA Diam: 3.0 cm (2.7 - 3.8) Ao Diam: 3.5 cm (2.0 - 3.7) AV Cusp: 1.6 cm (1.5 - 2.6) MV EXCURSION: 21.171 mm (> 18.000) MV EF SLOPE: 33 mm/s (70 - 150) EPSS: 0.6 cm MV E Saúl: 0.61 m/s MV DecT: 217 ms MV A Saúl: 0.82 m/s MV E/A Ratio: 0.74 AR PHT: 561 ms RAP: 5.00 mmHg RVSP: 25.90 mmHg FINDINGS -------- Sinus rhythm. This was a technically adequate study. LV size, wall thickness and systolic function are normal, with an EF greater than 55%. The left olivia tricular size is normal. The diastolic filling pattern is normal for the age of the patient 7.34. The right ventricle is normal in size. The left atrial size is normal. The right atrial size is normal. There is mild aortic valve sclerosis. There is [id number] aortic regurgitation. Mild mitral annular calcification present. Mild mitral regurgitation is present. The tricuspid valve appears structurally normal. Mild tricuspid regurgitation present. Right vent ricular systolic pressure is normal at < 35 mmHg. There is no pulmonic regurgitation present. The aortic root size is normal. There is no pericardial effusion. CONCLUSIONS -------- 1. LV size, wall thickness and systolic function are normal, with an EF greater than 55%. 2. The left atrial size is normal. 3. There is eoby-it-wobjolln aortic regurgitation. 4. Mild mitral regurgitation is present. 5. Mild tricuspid regurgitation present. 6. There is no pericardial effusion. CABLE ENGINEER: Sandie Hills RDCS
[2020-09-08 11:15] LABS: HCT 36.3 % (34.0-46.0); HGB 12.5 gm/dL (11.4-16.0); MCH 33.3 pg (25.0-35.0); MCHC 34.4 g/dL (31.0-37.0); MCV 96.7 fL (80.0-100.0); Mean Platelet Volume 6.6; Platelet Count 247 k/uL (150-450); RBC 3.75 m/uL (3.80-5.40); WBC 3.8 k/uL (3.8-10.6)
[2020-09-08 11:35] LABS: Albumin 3.9 g/dL (3.5-5.0); Calcium 10.2 mg/dL (8.4-10.2); Potassium 4.4 mmol/L (3.5-5.1); Total Bilirubin 1.8 mg/dL (0.2-1.3); Total Protein 6.6 g/dL (6.3-8.2)
--- NOTE | 2020-09-08 12:51 | P.PN ---
Subjective Progress Note Date: 09/08/20 Patient is awake and alert today. She had a presyncopal episode this morning similar to what happened to her yesterday but less severe. She denies any chest pain or palpitation. Orthostatic blood pressure this morning were negative. Her at bedside told me that this episode happened before she got her breakfast. No acute events overnight reported by nursing staff. Patient is in sinus bradycardia on burnisher and bumper. Objective - Vital Signs Vital signs: Vital Signs Temp 97.4 F L 09/08/20 08:27 Pulse 59 L 09/08/20 08:27 Resp 16 09/08/20 09:00 BP 143/61 09/08/20 08:27 Pulse Ox 95 09/08/20 08:27 Intake & Output 09/07/20 09/08/20 09/08/20 18:59 06:59 18:59 Intake Total 500 Output Total 350 Balance -350 500 Weight 70.307 kg 70.307 kg Intake: IV 300 Sodium Chloride 0.9% 1, 300 000 ml @ 50 mls/hr IV . Q20H [facility] Rx#:[id number] Oral 200 Output: Urine 350 Other: # Voids 1 - Exam General: The patient is awake and alert, in no distress Eye: there is normal conjunctiva bilaterally. Neck: The neck is supple, there is no JVD. Cardiovascular: Normal S1-S2, no S3-S4, no murmurs. Respiratory: Lungs clear to auscultation bilaterally Gastrointestinal: Abdomen is soft, nontender Musculoskeletal: There is no pedal edema. Neurological:. Speech is normal. Skin: Skin is warm and dry - Labs CBC & Chem 7: 09/08/20 10:36 09/08/20 10:36 Labs: Abnormal Lab Results - Last 24 Hours (Table) 09/07/20 09/07/20 09/08/20 Range/Units 17:59 17:59 10:36 RBC 3.75 L (3.80-5.40) m/uL Sodium 131 L (137-145) mmol/L Chloride 96 L (98-107) mmol/L Carbon Dioxide (22-30) mmol/L Glucose 100 H (74-99) mg/dL Calcium 11.1 H (8.4-10.2) mg/dL Total Bilirubin (0.2-1.3) mg/dL AST 38 H (14-36) U/L Ur Leukocyte Esterase Large H (Negative) Urine WBC 22 H (0-5) /hpf 09/08/20 Range/Units 10:36 RBC (3.80-5.40) m/uL Sodium 132 L (137-145) mmol/L Chloride (98-107) mmol/L Carbon Dioxide 31 H (22-30) mmol/L Glucose 105 H (74-99) mg/dL Calcium (8.4-10.2) mg/dL Total Bilirubin 1.8 H (0.2-1.3) mg/dL AST (14-36) U/L Ur Leukocyte Esterase (Negative) Urine WBC (0-5) /hpf Assessment and Plan Assessment: The patient is a 74-year-old female with a PMH of hypertension, hyperlipidemia, and rheumatoid arthritis who presented to the emergency room after an episode of syncope. The patient underwent an extensive evaluation in the emergency room with orthostatic vital signs that were unremarkable. EKG revealed normal sinus rhythm at 63 bpm with left axis deviation. Brain CT was negative for acute abnormalities. Chest x-ray was unremarkable. Laboratory evaluation revealed a sodium 131, chloride 96, calcium 11.1, and AST 38. Syncope, unclear etiology - orthostatic blood pressure checked and negative -Echocardiogram showed preserved ejection fraction with no significant valvular abnormality -Cardiac monitoring showing normal sinus rhythm with some sinus bradycardia -Cardiology consulted -Patient advised to refrain from driving for at least 6 months -Continue with IV fluids Hypochloremic hyponatremia -Discontinue hydrochlorothiazide permanently -Possibly secondary to dehydration with poor oral intake Chronic conditions: Hypertension, hyperlipidemia, rheumatoid arthritis -Continue with home medications DVT prophylaxis -Heparin subq
--- NOTE | 2020-09-08 12:52 | P.CRDCN ---
History of Present Illness Consult date: 09/08/20 History of present illness: CHIEF COMPLAINT: Syncope HISTORY OF PRESENT ILLNESS: This is a 74 -year old female with a past medical history significant for hypertension, migraines, CVA, and rheumatoid arthritis. Patient follows in the office with Dr. Doyle. We have been asked to see the patient in consultation for syncope. Patient examined at the bedside in the ER. She reports that she was having some work done to her car. She was sitting in the car while a conveyor mechanic worked near the dash. She states she was a feeling fine and then she felt like things were becoming blurry and closing in on her. She felt as though she was going to pass out, but then the symptoms subsided. She states she did not actually pass out. She states after the conveyor mechanic was done working on her car she drove to her [employer] and had some juice and something to eat and sat there for about 30 minutes. She then drove home and checked her blood pressure and found it to be elevated with a systolic in the 170s. She reports that she then started to feel a migraine coming on so she took a new medication that was recently prescribed to her for migraines. She states the medication made her "woozy" so she decided to go lay down for a couple hours. After that, she decided to come the ER for further evaluation. She denies chest pain or pressure. She denies shortness of breath. She denies dizziness or lightheadedness. She reports she has these episodes where she feels like she is going to pass out approximately 2 times a year. Patient had a nuclear stress test completed in July 2018 which was negative for stress-induced ischemia. DIAGNOSTICS: EKG reveals sinus rhythm with no signs of acute ischemia Chest xray no active cardiopulmonary disease. Laboratory data: W BC 7.6. Hemoglobin 14.0. Platelet count 292. Sodium 131. Potassium 4.0. B UN 14. Creatinine 0.75. Troponin negative 1. Current home cardiac medications include hydrochlorothiazide 25 mg daily, lisinopril 20 mg twice a day, and metoprolol 50 mg daily Echocardiogram completed reveals ejection fraction greater than 55%, [id number] aortic regurgitation, mild mitral regurgitation and mild tricuspid regurgitation REVIEW OF SYSTEMS: At the time of my exam: CONSTITUTIONAL: Denies fever or chills. HEENT: Denies blurred vision, vision changes, or eye pain. Denies hemoptysis CARDIOVASCULAR: Denies chest pain, orthopnea, PND or palpitations RESPIRATORY: No shortness of breath. GASTROINTESTINAL: Denies abdominal pain. Denies nausea or vomiting. HEMATOLOGIC: Denies bleeding disorders. GENITOURINARY: Denies any blood in urine. SKIN: Denies pruitis. Denies rash. PHYSICAL EXAM: VITAL SIGNS: Reviewed. GENERAL: Well-developed in no acute distress. HEENT: Head is normocephalic. Pupils are equal, round. Sclerae anicteric. Mucous membranes of the mouth are moist. Neck supple. No JVD or thyromegaly LUNGS: Respirations even and unlabored. Lungs essentially clear to auscultation bilaterally. HEART: Regular rate and rhythm. S1 and S2 heard. Systolic murmur auscultated. ABDOMEN: Soft. Nondistended. Nontender. EXTREMITIES: Normal range of motion. No clubbing or cyanosis. Peripheral pulse s intact. No lower extremity edema NEUROLOGIC: Awake and alert. Oriented x 3. ASSESSMENT: Pre-syncope Hypertension Valvular heart disease: [id number] aortic regurgitation, mild mitral regurgitation and mild tricuspid regurgitation History of CVA History of migraines History of rheumatoid arthritis PLAN: Echocardiogram obtained and reviewed Orthostatic blood pressures obtained and were unremarkable Patient may be discharged home today from a cardiac perspective. She is to follow up outpatient with Dr. Doyle 1 week. Nurse practitioner note has been reviewed by physician. Signing provider agrees with the documented findings, assessment, and plan of care. Past Medical History Past Medical History: Cancer, CVA/TIA, Hyperlipidemia, Hypertension, Rheumatoid Arthritis (RA) Additional Past Medical History / Comment(s): migraines, varicose veins, hype rparathyroidism, melanoma, anemia History of Any Multi-Drug Resistant Organisms: None Reported Past Surgical History: Joint Replacement, Orthopedic Surgery Additional Past Surgical History / Comment(s): 03/2017 L foot surgery. left hip replacement Jul, 2018, Left knee replacement before left foot surgery Past Anesthesia/Blood Transfusion Reactions: No Reported Reaction Past Psychological History: No Psychological Hx Reported Smoking Status: Former smoker Past Alcohol Use History: Rare Additional Past Alcohol Use History / Comment(s): quit smoking age early 20's, smoked for 5-6 yrs Past Drug Use History: None Reported - Past Family History Mother Family Medical History: Cancer Additional Family Medical History / Comment(s): stomach cancer Father Family Medical History: Cancer Additional Family Medical History / Comment(s): Prostate Cancer Sister(s) Family Medical History: Cancer Additional Family Medical History / Comment(s): Lung Cancer Medications and Allergies Home Medications Medication Instructions Recorded Confirmed Type Metoprolol Succinate (ER) [Toprol 50 mg PO DAILY 03/06/16 09/07/20 History XL] L.acidoph,Paracasei, B.lactis 2 cap PO DAILY 05/06/18 09/07/20 History [Probiotic] metHOTREXate sodium [Methotrexate] 20 mg PO TU 05/06/18 09/07/20 History Multivitamins, Thera [Multivitamin 2 tab PO DAILY 06/19/18 09/07/20 History (formulary)] lisinopriL [Prinivil] 20 mg PO BID 06/19/18 09/07/20 History Cholecalciferol (Vitamin D3) 2,000 unit PO DAILY 07/06/19 09/07/20 History [Vitamin D3] Omeprazole [PriLOSEC] 20 mg PO AC-BRKFST 07/06/19 09/07/20 History Prolia(Dose Unknown) 1 injection IJ Q168D 07/06/19 09/07/20 History Black Current Seed Oil (Unknown 2 tab PO DAILY 09/07/20 09/07/20 History Strength) Butalb/Asprin/Caff 50-325-40Mg 1 tab PO Q4-6H PRN 09/07/20 09/07/20 History [Fiorinal 50-325-40 MG] Comfort Tone (Unknown Strength) 1 tab PO HS 09/07/20 09/07/20 History Etanercept [Enbrel Sureclick] 50 mg SQ SA 09/07/20 09/07/20 History Ferrous Sulfate [Iron (65 MG 325 mg PO Q48H 09/07/20 09/07/20 History Elemental)] Ibuprofen [Motrin Ib] 200 mg PO Q4-6H PRN 09/07/20 09/07/20 History L-5-Mthf (Folate) 1700mcg 1 tab PO DAILY 09/07/20 09/07/20 History Ningxia Red (Unknown Strength) 1 dose PO DAILY 09/07/20 09/07/20 History [place]-3 Fatty Acids/Fish Oil [Fish 1 cap PO DAILY 09/07/20 09/07/20 History Oil 1,000 mg Softgel] Osteoforce (Unknown Strength) 1 tab PO DAILY 09/07/20 09/07/20 History Policosanol (20mg) 1 tab PO BID 09/07/20 09/07/20 History Super D Supplement (Unknown 1 tab PO DAILY 09/07/20 09/07/20 History Strength) hydroCHLOROthiazide [Hydrodiuril] 25 mg PO DAILY 09/07/20 09/07/20 History Allergies Allergy/AdvReac Type Severity Reaction Status Date / Time pseudoephedrine HCl Allergy Unknown Verified 09/07/20 19:52 [From Sudafed] Sulfa (Sulfonamide Allergy Unknown Verified 09/07/20 19:52 Antibiotics) Physical Exam Vitals: Vital Signs Temp Pulse Pulse Pulse Pulse Pulse Resp 09/08/20 09:00 16 09/08/20 08:27 97.4 F L 63 70 59 L 16 09/08/20 05:59 98.1 F 62 18 09/08/20 02:01 97.8 F 09/08/20 02:00 65 18 09/08/20 01:23 61 16 09/07/20 20:41 64 16 09/07/20 19:29 60 16 09/07/20 18:44 62 18 09/07/20 18:40 63 09/07/20 17:11 98.3 F 70 18 BP BP BP BP Pulse Ox 09/08/20 09:00 09/08/20 08:27 160/73 145/82 143/61 95 09/08/20 05:59 141/64 99 09/08/20 02:01 09/08/20 02:00 148/68 98 09/08/20 01:23 119/51 97 09/07/20 20:41 177/87 98 09/07/20 19:29 155/76 140/80 149/69 09/07/20 18:44 181/74 09/07/20 18:40 09/07/20 17:11 204/96 99 Intake and Output 09/07/20 09/08/20 09/08/20 22:59 06:59 14:59 Intake Total 500 Output Total 350 Balance -350 500 Intake: IV 300 Sodium Chloride 0.9% 1, 300 000 ml @ 50 mls/hr IV . Q20H [facility] Rx#:[id number] Oral 200 Output: Urine 350 Other: # Voids 1 Weight 70.307 kg 70.307 kg Results 09/08/20 10:36 09/08/20 10:36 Cardiac Enzymes 09/07/20 09/07/20 09/08/20 Range/Units 17:59 17:59 10:36 AST 38 H 33 (14-36) U/L Troponin I <0.012 (0.000-0.034) ng/mL Coagulation 09/07/20 Range/Units 17:59 PT 9.5 (9.0-12.0) sec APTT 24.9 (22.0-30.0) sec CBC 09/07/20 09/08/20 Range/Units 17:59 10:36 WBC 7.6 3.8 (3.8-10.6) k/uL RBC 4.34 3.75 L (3.80-5.40) m/uL Hgb 14.0 12.5 (11.4-16.0) gm/dL Hct 41.6 36.3 (34.0-46.0) % Plt Count 292 247 (150-450) k/uL Comprehensive Metabolic Panel 09/07/20 09/08/20 Range/Units 17:59 10:36 Sodium 131 L 132 L (137-145) mmol/L Potassium 4.0 4.4 (3.5-5.1) mmol/L Chloride 96 L 100 (98-107) mmol/L Carbon Dioxide 29 31 H (22-30) mmol/L BUN 14 12 (7-17) mg/dL Creatinine 0.75 0.75 (0.52-1.04) mg/dL Glucose 100 H 105 H (74-99) mg/dL Calcium 11.1 H 10.2 (8.4-10.2) mg/dL AST 38 H 33 (14-36) U/L ALT 22 19 (4-34) U/L Alkaline Phosphatase 60 49 (38-126) U/L Total Protein 7.9 6.6 (6.3-8.2) g/dL Albumin 4.7 3.9 (3.5-5.0) g/dL Current Medications Generic Name Dose Route Start Last Admin Trade Name Freq PRN Reason Stop Dose Admin Heparin Sodium (Porcine) 5,000 unit 09/08/20 00:00 09/08/20 09:51 Heparin Sodium,Porcine 5,000 Unit/Ml 1 Ml Vial SQ 5,000 unit Q8HR [facility] Administration Sodium Chloride 1,000 mls @ 50 mls/hr 09/07/20 20:30 09/07/20 20:42 Saline 0.9% IV 50 mls/hr .Q20H [facility] Administration Lisinopril 20 mg 09/08/20 09:00 Lisinopril 20 Mg Tab PO BID [facility] Methotrexate 20 mg 09/12/20 09:00 Methotrexate Sodium 2.5 Mg Tab PO Tu@0900 [facility] Metoprolol Succinate 50 mg 09/08/20 09:00 09/08/20 09:50 Metoprolol Succinate (Er) 50 Mg Tab.Er.24h PO 50 mg DAILY [facility] Administration Naloxone HCl 0.2 mg 09/07/20 20:24 Naloxone 0.4 Mg/Ml 1 Ml Vial IV Q2M PRN Opioid Reversal Intake and Output 09/07/20 09/08/20 09/08/20 22:59 06:59 14:59 Intake Total 500 Output Total 350 Balance -350 500 Intake: IV 300 Sodium Chloride 0.9% 1, 300 000 ml @ 50 mls/hr IV . Q20H [facility] Rx#:[id number] Oral 200 Output: Urine 350 Other: # Voids 1 Weight 70.307 kg 70.307 kg Patient Weight 09/09/20 06:59 Weight 70.307 kg 09/08/20 10:36 09/08/20 10:36
[2020-09-08 13:44] VITALS: BP 161/70; PULSE 57; RESP 18
--- NOTE | 2020-09-08 14:48 | P.DS ---
Providers Date of admission: 09/07/20 20:12 Expected date of discharge: 09/08/20 Attending physician: Karen Pardo MD Consults: 09/08/20 09:35 Consult Physician Routine Consulting Provider: Shelby Doyle Consult Reason/Comments: syncope Do you want consulting provider notified?: Yes Primary care physician: [facility] Course: The patient is a 74-year-old female with a PMH of hypertension, hyperlipidemia, and rheumatoid arthritis who presented to the emergency room after an episode of pre-syncope. The patient underwent an extensive evaluation in the emergency room with orthostatic vital signs that were unremarkable. EKG revealed normal sinus rhythm at 63 bpm with left axis deviation. Brain CT was negative for acute abnormalities. Chest x-ray was unremarkable. Laboratory evaluation revealed a sodium 131, chloride 96, calcium 11.1, and AST 38. Syncope, unclear etiology - orthostatic blood pressure checked and negative -Echocardiogram showed preserved ejection fraction with no significant valvular abnormality -Cardiac monitoring showing normal sinus rhythm with some sinus bradycardia -Cardiology consulted, no further testing recommended at this time -Patient advised to refrain from driving for at least 6 months -Patient cleared for discharge home Hypochloremic hyponatremia -Discontinue hydrochlorothiazide permanently Chronic conditions: Hypertension, hyperlipidemia, rheumatoid arthritis -Continue with home medications Patient will be discharged home in a stable condition. For further details about this hospitalization please refer to the electronic chart. Time spent on discharge > 30 minutes including counseling and coordination of care Patient Condition at Discharge: Stable Plan - Discharge Summary New Discharge Prescriptions: Continue Metoprolol Succinate (ER) [Toprol XL] 50 mg PO DAILY L.acidoph,Paracasei, B.lactis [Probiotic] 2 cap PO DAILY metHOTREXate sodium [Methotrexate] 20 mg PO TU lisinopriL [Prinivil] 20 mg PO BID Multivitamins, Thera [Multivitamin (formulary)] 2 tab PO DAILY Omeprazole [PriLOSEC] 20 mg PO AC-BRKFST Cholecalciferol (Vitamin D3) [Vitamin D3] 2,000 unit PO DAILY Prolia(Dose Unknown) 1 injection IJ Q168D Etanercept [Enbrel Sureclick] 50 mg SQ SA Ferrous Sulfate [Iron (65 MG Elemental)] 325 mg PO Q48H [place] Red (Unknown Strength) 1 dose PO DAILY Black Current Seed Oil (Unknown Strength) 2 tab PO DAILY Comfort Tone (Unknown Strength) 1 tab PO HS Super D Supplement (Unknown Strength) 1 tab PO DAILY Ibuprofen [Motrin Ib] 200 mg PO Q4-6H PRN PRN Reason: Pain Policosanol (20mg) 1 tab PO BID L-5-Mthf (Folate) 1700mcg 1 tab PO DAILY [place]-3 Fatty Acids/Fish Oil [Fish Oil 1,000 mg Softgel] 1 cap PO DAILY Butalb/Asprin/Caff 50-325-40Mg [Fiorinal 50-325-40 MG] 1 tab PO Q4-6H PRN PRN Reason: Migraine Headache Osteoforce (Unknown Strength) 1 tab PO DAILY Discontinued hydroCHLOROthiazide [Hydrodiuril] 25 mg PO DAILY Discharge Medication List Metoprolol Succinate (ER) [Toprol XL] 50 mg PO DAILY 03/06/16 [History] L.acidoph,Paracasei, B.lactis [Probiotic] 2 cap PO DAILY 05/06/18 [History] metHOTREXate sodium [Methotrexate] 20 mg PO TU 05/06/18 [History] Multivitamins, Thera [Multivitamin (formulary)] 2 tab PO DAILY 06/19/18 [History] lisinopriL [Prinivil] 20 mg PO BID 06/19/18 [History] Cholecalciferol (Vitamin D3) [Vitamin D3] 2,000 unit PO DAILY 07/06/19 [History] Omeprazole [PriLOSEC] 20 mg PO AC-BRKFST 07/06/19 [History] Prolia(Dose Unknown) 1 injection IJ Q168D 07/06/19 [History] Black Current Seed Oil (Unknown Strength) 2 tab PO DAILY 09/07/20 [History] Butalb/Asprin/Caff 50-325-40Mg [Fiorinal 50-325-40 MG] 1 tab PO Q4-6H PRN 09/07/20 [History] Comfort Tone (Unknown Strength) 1 tab PO HS 09/07/20 [History] Etanercept [Enbrel Sureclick] 50 mg SQ SA 09/07/20 [History] Ferrous Sulfate [Iron (65 MG Elemental)] 325 mg PO Q48H 09/07/20 [History] Ibuprofen [Motrin Ib] 200 mg PO Q4-6H PRN 09/07/20 [History] L-5-Mthf (Folate) 1700mcg 1 tab PO DAILY 09/07/20 [History] Ningxia Red (Unknown Strength) 1 dose PO DAILY 09/07/20 [History] [place]-3 Fatty Acids/Fish Oil [Fish Oil 1,000 mg Softgel] 1 cap PO DAILY 09/07/20 [History] Osteoforce (Unknown Strength) 1 tab PO DAILY 09/07/20 [History] Policosanol (20mg) 1 tab PO BID 09/07/20 [History] Super D Supplement (Unknown Strength) 1 tab PO DAILY 09/07/20 [History] Follow up Appointment(s)/Referral(s): Shelby Doyle MD [STAFF PHYSICIAN] - 1 Week [facility] [REFERRING] - 1-2 days Discharge Disposition: HOME SELF-CARE
[2020-09-12] MEDS ORDERED: metHOTREXate sodium 2.5 MG TAB PO SCH (09:00)
== END 2020-09-08 16:23 | disposition home or self-care (01) ==
LOC: EC 17:05 → 1SOBS 20:12
PROVIDERS: ADMIT Internal Medicine; ATTEND Internal Medicine
DX: R55 Syncope and collapse (principal); R11.0 Nausea; G43.909 Migraine, unspecified, not intractable, without status migrainosus; E78.5 Hyperlipidemia, unspecified; I10 Essential (primary) hypertension; E87.1 Hypo-osmolality and hyponatremia; E87.8 Other disorders of electrolyte and fluid balance, not elsewhere classified; I08.3 Combined rheumatic disorders of mitral, aortic and tricuspid valves; D64.9 Anemia, unspecified; M06.9 Rheumatoid arthritis, unspecified; R00.1 Bradycardia, unspecified; E86.0 Dehydration; I83.90 Asymptomatic varicose veins of unspecified lower extremity; E21.3 Hyperparathyroidism, unspecified; Z79.899 Other long term (current) drug therapy; Z79.1 Long term (current) use of non-steroidal anti-inflammatories (NSAID); Z88.8 Allergy status to other drugs, medicaments and biological substances; Z88.2 Allergy status to sulfonamides; Z86.73 Personal history of transient ischemic attack (TIA), and cerebral infarction without residual deficits; Z85.820 Personal history of malignant melanoma of skin; Z87.891 Personal history of nicotine dependence; Z96.642 Presence of left artificial hip joint; Z96.652 Presence of left artificial knee joint; Z80.9 Family history of malignant neoplasm, unspecified; Z80.0 Family history of malignant neoplasm of digestive organs; Z80.1 Family history of malignant neoplasm of trachea, bronchus and lung; Z80.42 Family history of malignant neoplasm of prostate
CPT/HCPCS: 96361 ×3; 96360; 96372; 99285; 36415; 93005; 93306; 80053 ×2; 84484; 85025; 85027; 85610; 85730; 81001; 71046; 70450; G0378 ×2; J1644

== ENCOUNTER → 2020-09-28 | Outpatient (CLI) | payer MEDICARE ==
--- NOTE | 2020-10-13 14:21 | EEG ---
ELECTROENCEPHALOGRAM REPORT EEG OBJECTIVE: This is a digitally acquired EEG utilizing 10/20 international system. Placement was standard montages able to be digitally reformatted for least 20 minutes duration in the evaluation of a 74-year-old female for possible epileptiform activity. EEG FINDINGS: The resting alert record is characterized as 9 Hz posterior dominant background activity which is well developed, formed and sustained of moderate voltage 20-30 microvolts. There are no gross hemispheric asymmetries appreciated, although there is frequent intermittent slowing noted more in the left temporal region and at times extends to the left parasagittal region associated with slow sharp waves and occasional sharp waves suggestive of epileptiform potential. There is bifrontal low voltage fast activity. Activation procedures not performed. During the record, there was frequent drowsiness progressing into periods of stage II sleep with poorly formed vertex sharp waves. There were no paroxysmal discharges or electrographic seizures noted. IMPRESSIONS: This is an abnormal EEG showing findings consistent with subcortical more than cortical disturbance of neuronal dysfunction in the left temporal region, sometimes extending to the left parasagittal region. Please see above report for details. This carries with it some seizure potential. Findings do not necessarily predict clinical seizures. Other features of this EEG unremarkable. Clinical correlation necessary. MMODL / IJN: [id number] /
== END | disposition home or self-care (01) ==
LOC: NEUROMAIN 07:56
PROVIDERS: ATTEND Psychiatry & Neurology Neurology
DX: G40.909 Epilepsy, unspecified, not intractable, without status epilepticus (principal); R94.01 Abnormal electroencephalogram [EEG]; R55 Syncope and collapse
CPT/HCPCS: 95816

== ENCOUNTER 2020-10-25 14:49 | Observation (INO) | payer MEDICARE ==
[2020-10-25 14:56] VITALS: RESP 16
[2020-10-25 15:19] LABS: Glucose,Whole Blood 89 mg/dL (75-99)
--- NOTE | 2020-10-25 15:30 | ED ---
Neuro HPI - General Chief Complaint: Neuro Symptoms/Deficit Stated Complaint: AMS/Poss Stroke Time Seen by Provider: 10/25/20 15:10 Source: patient, RN notes reviewed Mode of arrival: ambulatory Limitations: altered mental status - History of Present Illness Is the patient presenting with stroke symptoms?: No Initial Comments: Is a 74-year-old female with a history of migraines in which she gets auras usually with visual manifestation but no headaches who had the onset today while on her way to physical therapy of what was suspected to be her typical aura he was getting physical therapy for her neck. However during the evaluation she apparently had difficulty with answering questions and was told to get her evaluated. She was brought here for evaluation on arrival she did not seem to have any neuro deficits was slow to answer questioning but did answer appropriately. She states she has a slight left-sided headache no fevers chills nausea vomiting sweats no visual effects at this time. No loss of function to her upper or lower extremities. This is not typical of her migraine headaches. Mom reported no other symptoms reported - Related Data Home Medications: Home Medications Medication Instructions Recorded Confirmed Metoprolol Succinate (ER) [Toprol 50 mg PO DAILY 03/06/16 10/25/20 XL] L.acidoph,Paracasei, B.lactis 2 cap PO DAILY 05/06/18 10/25/20 [Probiotic] metHOTREXate sodium [Methotrexate] 20 mg PO TU 05/06/18 10/25/20 Multivitamins, Thera [Multivitamin 2 tab PO DAILY 06/19/18 10/25/20 (formulary)] lisinopriL [Prinivil] 20 mg PO BID 06/19/18 10/25/20 Omeprazole [PriLOSEC] 20 mg PO AC-BRKFST 07/06/19 10/25/20 Prolia(Dose Unknown) 1 injection IJ Q168D 07/06/19 10/25/20 Butalb/Asprin/Caff 50-325-40Mg 1 cap PO Q4-6H PRN 09/07/20 10/25/20 [Fiorinal 50-325-40 MG] Etanercept [Enbrel Sureclick] 50 mg SQ SA 09/07/20 10/25/20 Ferrous Sulfate [Iron (65 MG 325 mg PO DAILY 09/07/20 10/25/20 Elemental)] Ibuprofen [Motrin Ib] 200 mg PO Q4-6H PRN 09/07/20 10/25/20 L-5-Mthf (Folate) 1700mcg 1 tab PO DAILY 09/07/20 10/25/20 [place]-3 Fatty Acids/Fish Oil [Fish 1 cap PO DAILY 09/07/20 10/25/20 Oil 1,000 mg Softgel] Policosanol (20mg) 1 tab PO BID 09/07/20 10/25/20 Cholecalciferol [Vitamin D3 (25 50 mcg PO DAILY 10/25/20 10/25/20 Mcg = 1000 Iu)] Allergies/Adverse Reactions: Allergies Allergy/AdvReac Type Severity Reaction Status Date / Time pseudoephedrine HCl Allergy Unknown Verified 10/25/20 17:14 [From Sudafed] Sulfa (Sulfonamide Allergy Unknown Verified 10/25/20 17:14 Antibiotics) Review of Systems ROS Statement: Those systems with pertinent positive or pertinent negative responses have been documented in the HPI. ROS Other: All systems not noted in ROS Statement are negative. General Exam - General Exam Comments Initial Comments: This is a well-developed well-nourished awake alert oriented 3 female who states she has had some trouble remembering what exactly happened but knows the place and time and date Limitations: altered mental status General appearance: alert, in no apparent distress Head exam: Present: atraumatic, normocephalic, normal inspection Eye exam: Present: normal appearance, PERRL, EOMI. Absent: scleral icterus, conjunctival injection, periorbital swelling ENT exam: Present: normal exam, mucous membranes moist Neck exam: Present: normal inspection. Absent: tenderness, meningismus, lymphadenopathy Respiratory exam: Present: normal lung sounds bilaterally. Absent: respiratory distress, wheezes, rales, rhonchi, stridor Cardiovascular Exam: Present: regular rate, normal rhythm, normal heart sounds. Absent: systolic murmur, diastolic murmur, rubs, gallop, clicks GI/Abdominal exam: Present: soft, normal bowel sounds. Absent: distended, tenderness, guarding, rebound, rigid Extremities exam: Present: normal inspection, full ROM, normal capillary refill. Absent: tenderness, pedal edema, joint swelling, calf tenderness Back exam: Present: normal inspection Neurological exam: Present: alert, oriented X3, CN II-XII intact. Absent: motor sensory deficit Psychiatric exam: Present: normal affect, normal mood Skin exam: Present: warm, dry, intact, normal color. Absent: rash Stroke MDM - Lab Data Result diagrams: 10/25/20 15:19 10/25/20 15:19 Lab Results 10/25/20 10/25/20 10/25/20 Range/Units 15:18 15:19 15:19 WBC 6.8 (3.8-10.6) k/uL RBC 3.94 (3.80-5.40) m/uL Hgb 13.1 (11.4-16.0) gm/dL Hct 37.8 (34.0-46.0) % MCV 96.0 (80.0-100.0) fL MCH 33.3 (25.0-35.0) pg MCHC 34.7 (31.0-37.0) g/dL RDW 12.9 (11.5-15.5) % Plt Count 235 (150-450) k/uL MPV 7.1 Neutrophils % 34 % Lymphocytes % 53 % Monocytes % 6 % Eosinophils % 2 % Basophils % 1 % Neutrophils # 2.3 (1.3-7.7) k/uL Lymphocytes # 3.6 (1.0-4.8) k/uL Monocytes # 0.4 (0-1.0) k/uL Eosinophils # 0.1 (0-0.7) k/uL Basophils # 0.1 (0-0.2) k/uL PT 10.0 (9.0-12.0) sec INR 0.9 (<1.2) APTT 22.7 (22.0-30.0) sec Sodium (137-145) mmol/L Potassium (3.5-5.1) mmol/L Chloride (98-107) mmol/L Carbon Dioxide (22-30) mmol/L Anion Gap mmol/L BUN (7-17) mg/dL Creatinine (0.52-1.04) mg/dL Est GFR (CKD-EPI)AfAm (>60 ml/min/1.73 sqM) Est GFR (CKD-EPI)NonAf (>60 ml/min/1.73 sqM) Glucose (74-99) mg/dL POC Glucose (mg/dL) 89 (75-99) mg/dL POC Glu Family Protection Specialist ID Lucita Moran Calcium (8.4-10.2) mg/dL Total Bilirubin (0.2-1.3) mg/dL AST (14-36) U/L ALT (4-34) U/L Alkaline Phosphatase (38-126) U/L Creatine Kinase (30-135) U/L Troponin I (0.000-0.034) ng/mL Total Protein (6.3-8.2) g/dL Albumin (3.5-5.0) g/dL Urine Color Urine Appearance (Clear) Urine pH (5.0-8.0) Ur Specific Beemer (1.001-1.035) Urine Protein (Negative) Urine Glucose (UA) (Negative) Urine Ketones (Negative) Urine Blood (Negative) Urine Nitrite (Negative) Urine Bilirubin (Negative) Urine Urobilinogen (<2.0) mg/dL Ur Leukocyte Esterase (Negative) Urine RBC (0-5) /hpf Urine WBC (0-5) /hpf 10/25/20 10/25/20 10/25/20 Range/Units 15:19 15:19 15:20 WBC (3.8-10.6) k/uL RBC (3.80-5.40) m/uL Hgb (11.4-16.0) gm/dL Hct (34.0-46.0) % MCV (80.0-100.0) fL MCH (25.0-35.0) pg MCHC (31.0-37.0) g/dL RDW (11.5-15.5) % Plt Count (150-450) k/uL MPV Neutrophils % % Lymphocytes % % Monocytes % % Eosinophils % % Basophils % % Neutrophils # (1.3-7.7) k/uL Lymphocytes # (1.0-4.8) k/uL Monocytes # (0-1.0) k/uL Eosinophils # (0-0.7) k/uL Basophils # (0-0.2) k/uL PT (9.0-12.0) sec INR (<1.2) APTT (22.0-30.0) sec Sodium 134 L (137-145) mmol/L Potassium 4.1 (3.5-5.1) mmol/L Chloride 104 (98-107) mmol/L Carbon Dioxide 26 (22-30) mmol/L Anion Gap 4 mmol/L BUN 10 (7-17) mg/dL Creatinine 0.68 (0.52-1.04) mg/dL Est GFR (CKD-EPI)AfAm >90 (>60 ml/min/1.73 sqM) Est GFR (CKD-EPI)NonAf 85 (>60 ml/min/1.73 sqM) Glucose 88 (74-99) mg/dL POC Glucose (mg/dL) (75-99) mg/dL POC Glu Family Protection Specialist ID Calcium 10.6 H (8.4-10.2) mg/dL Total Bilirubin 0.8 (0.2-1.3) mg/dL AST 35 (14-36) U/L ALT 24 (4-34) U/L Alkaline Phosphatase 59 (38-126) U/L Creatine Kinase 77 (30-135) U/L Troponin I <0.012 (0.000-0.034) ng/mL Total Protein 7.2 (6.3-8.2) g/dL Albumin 4.3 (3.5-5.0) g/dL Urine Color Colorless Urine Appearance Clear (Clear) Urine pH 7.0 (5.0-8.0) Ur Specific Beemer 1.005 (1.001-1.035) Urine Protein Negative (Negative) Urine Glucose (UA) Negative (Negative) Urine Ketones Negative (Negative) Urine Blood Negative (Negative) Urine Nitrite Negative (Negative) Urine Bilirubin Negative (Negative) Urine Urobilinogen <2.0 (<2.0) mg/dL Ur Leukocyte Esterase Trace H (Negative) Urine RBC 1 (0-5) /hpf Urine WBC 4 (0-5) /hpf - NIH Stroke Scale 1a. Level of Consciousness: (0) alert 1b. LOC Questions: (0) answers correctly 1c. LOC Commands: (0) performs tasks correctly 2. Best Gaze: (0) normal 3. Visual: (0) no visual loss 4. Facial Palsy: (0) normal symmetrical movement 5a. Motor Arm Left: (0) no drift 5b. Motor Arm Right: (0) no drift 6a. Motor Leg Left: (0) no drift 6b. Motor Leg Right: (0) no drift 7. Limb Ataxia: (0) absent 8. Sensory: (0) normal 9. Best Language: (0) no aphasia 10. Dysarthria: (0) normal 11. Extinction/Inattention: (0) no abnormality - Medical Decision Making I did review the imaging and report no acute findings seen. Patient did demonstrate evidence of improvement of her symptoms TIA is considered. She'll be admitted with neurology consultation. Case discussed with Dr. Palomino - EKG Data -: EKG Interpreted by Me EKG shows normal: sinus rhythm (Normal sinus rhythm 69. Interval 162 QRS 84 QT since QTC 410/439 moderate voltage criteria for LVH) Past Medical History Past Medical History: Cancer, CVA/TIA, Hyperlipidemia, Hypertension, Rheumatoid Arthritis (RA) Additional Past Medical History / Comment(s): migraines, varicose veins, hyperparathyroidism, melanoma, anemia History of Any Multi-Drug Resistant Organisms: None Reported Past Surgical History: Joint Replacement, Orthopedic Surgery Additional Past Surgical History / Comment(s): 03/2017 L foot surgery. left hip replacement Jul, 2018, Left knee replacement before left foot surgery Past Anesthesia/Blood Transfusion Reactions: No Reported Reaction Past Psychological History: No Psychological Hx Reported Smoking Status: Former smoker Past Alcohol Use History: Rare Past Drug Use History: None Reported - Past Family History Mother Family Medical History: Cancer Additional Family Medical History / Comment(s): stomach cancer Father Family Medical History: Cancer Additional Family Medical History / Comment(s): Prostate Cancer Sister(s) Family Medical History: Cancer Additional Family Medical History / Comment(s): Lung Cancer Course Vital Signs 10/25/20 10/25/20 10/25/20 14:50 15:10 15:30 Temperature 97.9 F Pulse Rate 58 L 62 Respiratory 16 16 Rate Blood Pressure 207/97 195/98 201/88 O2 Sat by Pulse 98 98 Oximetry 10/25/20 10/25/20 10/25/20 16:00 16:30 17:00 Temperature Pulse Rate 65 63 65 Respiratory 16 16 16 Rate Blood Pressure 197/92 211/91 190/78 O2 Sat by Pulse 98 98 100 Oximetry 10/25/20 18:00 Temperature Pulse Rate 65 Respiratory 16 Rate Blood Pressure 197/86 O2 Sat by Pulse 100 Oximetry - Reevaluation(s) Reevaluation #1: 10/25/20 18:29 Reevaluation patient reveals she does have a slight headache but otherwise feels back to normal. Disposition Clinical Impression: Transient cerebral ischemia Disposition: ADMITTED IP TO THIS HOSP Condition: Fair Referrals: Maki Zhou MD [Primary Care Provider] - 1-2 days
[2020-10-25 15:34] LABS: Basophils # (A) 0.1 k/uL (0-0.2); Basophils % (A) 1 %; Eosinophils # (A) 0.1 k/uL (0-0.7); Eosinophils % (A) 2 %; HCT 37.8 % (34.0-46.0); HGB 13.1 gm/dL (11.4-16.0); Lymphocytes # (A) 3.6 k/uL (1.0-4.8); Lymphocytes % (A) 53 %; MCH 33.3 pg (25.0-35.0); MCHC 34.7 g/dL (31.0-37.0); Mean Platelet Volume 7.1; Monocytes # (A) 0.4 k/uL (0-1.0); Monocytes % (A) 6 %; Neutrophils # (A) 2.3 k/uL (1.3-7.7); Neutrophils % (A) 34 %; Platelet Count 235 k/uL (150-450); RBC 3.94 m/uL (3.80-5.40); RDW 12.9 % (11.5-15.5); WBC 6.8 k/uL (3.8-10.6)
[2020-10-25 15:44] LABS: INR 0.9 (<1.2); Partial Thromboplastin Time 22.7 sec (22.0-30.0)
[2020-10-25 15:50] LABS: ALT 24 U/L (4-34); AST 35 U/L (14-36); African American GFR (CKD) >90 (>60 ml/min/1.73 sqM); Albumin 4.3 g/dL (3.5-5.0); Alkaline Phosphatase 59 U/L (38-126); Anion Gap 4 mmol/L; Blood Urea Nitrogen 10 mg/dL (7-17); Calcium 10.6 mg/dL (8.4-10.2); Carbon Dioxide 26 mmol/L (22-30); Chloride 104 mmol/L (98-107); Creatine Kinase 77 U/L (30-135); Glucose 88 mg/dL (74-99); Non-African American GFR(CKD) 85 (>60 ml/min/1.73 sqM); Potassium 4.1 mmol/L (3.5-5.1); Sodium 134 mmol/L (137-145); Total Bilirubin 0.8 mg/dL (0.2-1.3); Total Protein 7.2 g/dL (6.3-8.2)
--- NOTE | 2020-10-25 16:01 | CT ---
EXAMINATION TYPE: CT brain wo con DATE OF EXAM: 10/25/2020 COMPARISON: CT brain 09/07/2020 HISTORY: Difficulty speaking CT DLP: 1076.4 mGycm Automated exposure control for dose reduction was used. Helical imaging through the brain. FINDINGS: There is no hemorrhage or hydrocephalus. Cortical atrophy is present. Periventricular white matter sh ows patchy low attenuation. Probable calcification again noted towards the region of the thalamus rig ht greater than left is a stable finding. The calvarium is intact. Paranasal sinuses and mastoid air cells as visualized are normal. Orbits show symmetric and stable appearance, probable drusen present at the level of the optic nerves at the posterior globes. IMPRESSION: NO ACUTE ABNORMALITY, CONSIDER MRI FOR BETTER EVALUATION.
[2020-10-25] MEDS ORDERED: ENALAPRILAT 1.25 MG/ML 1 ML VIAL IVP STA (16:03)
[2020-10-25 16:13] LABS: Appearance,Urine Clear (Clear); Bilirubin,Urine Negative (Negative); Blood,Urine Negative (Negative); Color,Urine Colorless; Glucose,Urine (UA) Negative (Negative); Ketones,Urine Negative (Negative); Leukocyte Esterase,Urine Trace (Negative); Nitrite,Urine Negative (Negative); Protein,Urine Negative (Negative); RBC,Urine 1 /hpf (0-5); Specific Gravity,Urine 1.005 (1.001-1.035); Urobilinogen,Urine <2.0 mg/dL (<2.0); WBC,Urine 4 /hpf (0-5)
--- NOTE | 2020-10-25 16:35 | XR ---
EXAMINATION TYPE: XR chest 2V DATE OF EXAM: 10/25/2020 COMPARISON: Prior chest x-ray 09/07/2020 HISTORY: Altered mental status TECHNIQUE: Frontal and lateral views of the chest are obtained. FINDINGS: There is no focal air space opacity, pleural effusion, or pneumothorax seen. The cardiac silhouette size is stable. Aorta is dense and likely ectatic. There are overlying leads. The osseous structures are intact, there is a spinal curvature. IMPRESSION: No acute cardiopulmonary process.
--- NOTE | 2020-10-25 17:35 | CT ---
EXAMINATION TYPE: CT angio head neck DATE OF EXAM: 10/25/2020 COMPARISON: None HISTORY: Difficulty speaking CT DLP: 401.2 mGycm Automated exposure control for dose reduction was used. CONTRAST: Performed with IV Contrast, patient injected with 65 mL of Isovue 370. There are 3-D post processed images. Images obtained from the aortic arch to the vertex of the brain with IV contrast. There is arterial flow in both subclavian arteries. There is normal branching pattern of the great ve ssels on the aortic arch. There is arterial flow in the common internal and external carotid arteries bilaterally. There is tortuosity of the internal carotid arteries. There is arterial flow in both ve rtebral arteries which show no evidence of stenosis. Left vertebral artery is larger than the right. There is no evidence of carotid or vertebral artery aneurysm or dissection. There is fairly wide bell ncy of the carotid artery bifurcations. There is arterial flow in the vertebrobasilar artery system. There is arterial flow in the anterior m iddle and posterior cerebral arteries. There is no mass effect. There is no evidence of intracranial aneurysm or neovascularity. There is normal contrast opacification of the venous sinuses. IMPRESSION: Negative CT angiogram of the neck. Negative CT angiogram of the brain. No evidence of hemodynamic stenosis.
[2020-10-25] MEDS ORDERED: BUTALB/APAP/CAFF 50-325-40MG TAB PO STA (18:22)
[2020-10-25] MEDS ORDERED: IBUPROFEN 600 MG TAB PO STA (18:22)
[2020-10-25] MEDS ORDERED: CAFF PO PRN (18:35)
[2020-10-25] MEDS ORDERED: IBUPROFEN 200 MG TAB PO PRN (18:35)
[2020-10-25] MEDS ORDERED: ASPRIN PO PRN (18:35)
[2020-10-25] MEDS ORDERED: BUTALB PO PRN (18:35)
[2020-10-25] MEDS ORDERED: POLICOSANOL PO SCH (21:00)
[2020-10-25] MEDS: SODIUM CHLORIDE 0.9% 1,000 ML IV SCH (23:42)
[2020-10-25] MEDS: lisinopriL 20 MG TAB PO SCH (23:42)
[2020-10-25] MEDS ORDERED: BUTALB/APAP/CAFF 50-325-40MG TAB PO ONE (23:45)
--- NOTE | 2020-10-26 01:28 | P.HPIM ---
History of Present Illness H&P Date: 10/25/20 Patient is a 74-year-old female with a PMH of hypertension, hyperlipidemia, rheumatoid arthritis, chronic neck pain, recently diagnosed seizure disorder, and migraines who presented to the emergency room with complaints of confusion. The patient notes that she was in her usual state of health until today when she went to see her physical therapist as per usual. While there, she felt as though she was not able to focus on things and had a difficult time answering questions and just felt not like herself. She continued to feel confused for 30-45 minutes and then developed her typical migraine with aura. She reports recently having undergone an EEG where she was found to have some epileptiform activity at the frontal lobe, and was started on Keppra 250 mg by mouth twice a day. At time of interview, she reports feeling back to her usual self. Denied weakness, numbness, tingling. Denied chest discomfort, shortness of breath, fever, chills, cough, nausea, vomiting, abdominal pain. she underwent an extensive evaluation in the emergency room which was reviewed. CTA head and neck was unremarkable along with a CT brain. Chest x-ray was also unremarkable. EKG revealed normal sinus rhythm at 69 bpm with voltage criteria for LVH with no acute ST/T-wave changes noted as reviewed by me. laboratory evaluation was also reviewed. Review of Systems Pertinent positives and negatives as discussed in HPI, a complete review of systems was performed and all other systems are negative. Past Medical History Past Medical History: Cancer, CVA/TIA, Hyperlipidemia, Hypertension, Rheumatoid Arthritis (RA) Additional Past Medical History / Comment(s): migraines, varicose veins, hyperparathyroidism, melanoma, anemia History of Any Multi-Drug Resistant Organisms: None Reported Past Surgical History: Joint Replacement, Orthopedic Surgery Additional Past Surgical History / Comment(s): 03/2017 L foot surgery. left hip replacement Jul, 2018, Left knee replacement before left foot surgery Past Anesthesia/Blood Transfusion Reactions: No Reported Reaction Past Psychological History: No Psychological Hx Reported Smoking Status: Former smoker Past Alcohol Use History: Rare Past Drug Use History: None Reported - Past Family History Mother Family Medical History: Cancer Additional Family Medical History / Comment(s): stomach cancer Father Family Medical History: Cancer Additional Family Medical History / Comment(s): Prostate Cancer Sister(s) Family Medical History: Cancer Additional Family Medical History / Comment(s): Lung Cancer Medications and Allergies Home Medications Medication Instructions Recorded Confirmed Type Metoprolol Succinate (ER) [Toprol 50 mg PO DAILY 03/06/16 10/25/20 History XL] L.acidoph,Paracasei, B.lactis 2 cap PO DAILY 05/06/18 10/25/20 History [Probiotic] metHOTREXate sodium [Methotrexate] 20 mg PO TU 05/06/18 10/25/20 History Multivitamins, Thera [Multivitamin 2 tab PO DAILY 06/19/18 10/25/20 History (formulary)] lisinopriL [Prinivil] 20 mg PO BID 06/19/18 10/25/20 History Omeprazole [PriLOSEC] 20 mg PO AC-BRKFST 07/06/19 10/25/20 History Prolia(Dose Unknown) 1 injection IJ Q168D 07/06/19 10/25/20 History Butalb/Asprin/Caff 50-325-40Mg 1 cap PO Q4-6H PRN 09/07/20 10/25/20 History [Fiorinal 50-325-40 MG] Etanercept [Enbrel Sureclick] 50 mg SQ SA 09/07/20 10/25/20 History Ferrous Sulfate [Iron (65 MG 325 mg PO DAILY 09/07/20 10/25/20 History Elemental)] Ibuprofen [Motrin Ib] 200 mg PO Q4-6H PRN 09/07/20 10/25/20 History L-5-Mthf (Folate) 1700mcg 1 tab PO DAILY 09/07/20 10/25/20 History [place]-3 Fatty Acids/Fish Oil [Fish 1 cap PO DAILY 09/07/20 10/25/20 History Oil 1,000 mg Softgel] Policosanol (20mg) 1 tab PO BID 09/07/20 10/25/20 History Cholecalciferol [Vitamin D3 (25 50 mcg PO DAILY 10/25/20 10/25/20 History Mcg = 1000 Iu)] Allergies Allergy/AdvReac Type Severity Reaction Status Date / Time pseudoephedrine HCl Allergy Unknown Verified 10/25/20 17:14 [From Sudafed] Sulfa (Sulfonamide Allergy Unknown Verified 10/25/20 17:14 Antibiotics) Physical Exam Vitals: Vital Signs Temp Pulse Resp BP Pulse Ox 10/25/20 18:00 65 16 197/86 100 10/25/20 17:00 65 16 190/78 100 10/25/20 16:30 63 16 211/91 98 10/25/20 16:00 65 16 197/92 98 10/25/20 15:30 62 16 201/88 98 10/25/20 15:10 195/98 10/25/20 14:50 97.9 F 58 L 16 207/97 98 Intake and Output 10/25/20 10/25/20 10/25/20 06:59 14:59 22:59 Other: Weight 70.76 kg General: non toxic, no distress, appears at stated age, normal weight Derm: no unusual rashes/lesions no unusual ecchymoses, warm, dry Head: atraumatic, normocephalic, symmetric Eyes: EOMI, no lid lag, anicteric sclera, pupils equal round reactive to light ENT: Nose and ears atraumatic, no thrush, no pharyngeal erythema Neck: No thyromegaly, no cervical lymphadenopathy, trachea midline, supple Mouth: no lip lesion, mucus membranes moist Cardiovascular: S1S2 reg, no murmur, positive posterior tibial pulse bilateral, no edema, capillary refill less than 2 seconds Lungs: CTA bilateral, no rhonchi, no rales , no accessory muscle use Abdominal: soft, nontender to palpation, no guarding, no appreciable organomegaly, normal bowel sounds Ext: no gross muscle atrophy, muscle strength 5 out of 5 in bilateral upper extremities, strength 3 out of 5 of left lower extremity, 4 out of 5 right lower extremity, no contractures, Neuro: CN II-XI grossly intact, light touch intact all 4 extremities, finger to nose within normal limits, Psych: Alert, oriented, appropriate affect Results CBC & Chem 7: 10/25/20 15:19 10/25/20 15:19 Labs: Abnormal Lab Results - Last 24 Hours (Table) 10/25/20 10/25/20 Range/Units 15:19 15:20 Sodium 134 L (137-145) mmol/L Calcium 10.6 H (8.4-10.2) mg/dL Ur Leukocyte Esterase Trace H (Negative) Assessment and Plan Plan: Transient episode of confusion, possible etiologies include complex migraine versus seizure versus TIA -neurology consult -neuro checks -cardiac monitoring -echocardiogram -Continue with home Keppra dose Chronic conditions: Rheumatoid arthritis, hypertension, hyperlipidemia -Continue with home meds DVT prophylaxis -Heparin subq The patient is admitted with an anticipated less than 2 midnight stay for evaluation of TIA CODE STATUS: Full Code Discussed with: Patient, Anticipated discharge date: 10/[address]: Home A total of 35 minutes was spent on the care of this complex patient more than 50% of the time was spent in counseling and care coordination.
[2020-10-26] MEDS: levETIRAcetam 250 MG TAB PO SCH ×2 (03:00→07:54)
[2020-10-26] MEDS: SODIUM CHLORIDE 0.9% 1,000 ML IV SCH (04:36)
[2020-10-26] MEDS ORDERED: PANTOPRAZOLE 40 MG TABLET PO SCH (07:30)
[2020-10-26] MEDS: lisinopriL 20 MG TAB PO SCH (07:56)
[2020-10-26] MEDS ORDERED: HEPARIN SODIUM,PORCINE 5,000 UNIT/ML 1 ML VIAL SQ SCH (08:00)
[2020-10-26 08:57] VITALS: BP 124/66; PULSE 57; TEMP 98.3
[2020-10-26] MEDS ORDERED: LACTOBACILLUS ACIDOPH & BULGAR 1 EACH PACKET PO SCH (09:00)
[2020-10-26] MEDS ORDERED: CHOLECALCIFEROL 25 MCG (1000 IU) TABLET PO SCH (09:00)
[2020-10-26] MEDS ORDERED: MTHF PO SCH (09:00)
[2020-10-26] MEDS ORDERED: NON FORMULARY DRUG (Omega-3 Fatty Acids/Fish Oil [Fish Oil 1,000 Mg Softgel] 1 EACH Capsul PO SCH (09:00)
[2020-10-26] MEDS ORDERED: ASPIRIN 81 MG PO SCH (09:00)
[2020-10-26] MEDS ORDERED: MULTIVITAMINS, THERA 1 EACH TAB PO SCH (09:00)
[2020-10-26] MEDS ORDERED: FERROUS SULFATE 325 MG TAB PO SCH (09:00)
[2020-10-26] MEDS ORDERED: METOPROLOL SUCCINATE (ER) 50 MG TAB.ER.24H PO SCH (09:00)
--- NOTE | 2020-10-26 09:00 | US ---
EXAMINATION TYPE: US carotid duplex BILAT DATE OF EXAM: 10/26/2020 COMPARISON: NONE CLINICAL HISTORY: suspected TIA. EXAM MEASUREMENTS: RIGHT: Peak Systolic Velocity (PSV) cm/sec ----- Right CCA: 70.8 ----- Right ICA: 96.1 ----- Right ECA: 107 ICA/CCA ratio: 1.36 RIGHT: End Diastole cm/sec ----- Right CCA: 14.3 ----- Right ICA: 12.3 ----- Right ECA: 0.0 LEFT: Peak Systolic Velocity (PSV) cm/sec ----- Left CCA: 86.3 ----- Left ICA: 101 ----- Left ECA: 67.5 ICA/CCA ratio: 1.17 LEFT: End Diastole cm/sec ----- Left CCA: 11.3 ----- Left ICA: 20.0 ----- Left ECA: 0.0 VERTEBRALS (direction of flow): Right Vertebral: Antegrade Left Vertebral: Antegrade Rhythm: Normal Tortuous bilateral ICA's. Mild plaque bilateral bifurcations. No evidence of significant stenosis Some mild atheromatous plaquing is identified on the right bifurcation. Intimal thickening is present on the left. IMPRESSION: 1. Minimal plaquing and intimal thickening present without significant flow-limiting stenosis Criteria for Assigning % of Stenosis / Diameter reduction (Estimation based on the indirect measurements of the internal carotid artery velocities (ICA PSV). 1. Normal (no stenosis)=ICA PSV < 125 cm/s: ratio < 2.0: ICA EDV<40 cm/s. 2. Less than 50% stenosis=ICA PSV < 125 cm/s: ratio < 2.0: ICA EDV<40 cm/s. 3. 50 to 69% stenosis=ICA PSV of 125 to 230 cm/s: ration 2.0 ? 4.0: ICA EDV 40-100 cm/s. 4. Greater than 70% stenosis to near occlusion= ICA PSV > 230 cm/s: ratio > 4.0: ICA EDV > 100 cm/s. 5. Near occlusion= ICA PSV velocities may be low or undetectable: variable ratio and ICA EDV. 6. Total occlusion=unable to detect flow.
--- NOTE | 2020-10-26 11:58 | ECHOF ---
Referral Reason:Suspected TIA MEASUREMENTS -------- HEIGHT: 162.6 cm WEIGHT: 70.8 kg BP: IVSd: 1.0 cm (0.6 - 1.1) LVIDd: 4.1 cm (3.9 - 5.3) LVPWd: 1.2 cm (0.6 - 1.1) IVSs: 1.7 cm LVIDs: 2.0 cm LVPWs: 1.9 cm LAESV Index (A-L): 27.15 ml/m Ao Diam: 2.9 cm (2.0 - 3.7) AV Cusp: 1.7 cm (1.5 - 2.6) LA Diam: 2.9 cm (2.7 - 3.8) MV EXCURSION: 16.144 mm (> 18.000) MV EF SLOPE: 26 mm/s (70 - 150) EPSS: 0.7 cm MV E Saúl: 0.84 m/s MV DecT: 236 ms MV A Saúl: 1.14 m/s MV E/A Ratio: 0.74 AR PHT: 480 ms RAP: 5.00 mmHg RVSP: 11.74 mmHg FINDINGS -------- Sinus rhythm. This was a technically adequate study. The left ventricular size is normal. There is mild concentric left ventricular hypertrophy. Overa ll left ventricular systolic function is normal with, an EF between 55 - 60 %. Normal LAP Grade 1 D iastolic Dysfunction The right ventricle is normal in size. Normal LA size by volume 22+/-6 ml/m2. The right atrial size is normal. The aortic valve is trileaflet and appears structurally normal. There is mild aortic regurgitation. The mitral valve is normal. Mild mitral regurgitation is present. The tricuspid valve appears structurally normal. Trace tricuspid regurgitation present. Right olivia tricular systolic pressure is normal at < 35 mmHg. There is no pulmonic regurgitation present. The aortic root size is normal. Normal inferior vena cava with normal inspiratory collapse consistent with estimated right atrial pre ssure of 5 mmHg. There is no pericardial effusion. CONCLUSIONS -------- 1. There is mild concentric left ventricular hypertrophy. 2. Overall left ventricular systolic function is normal with, an EF between 55 - 60 %. 3. Normal LAP Grade 1 Diastolic Dysfunction 4. Normal LA size by volume 22+/-6 ml/m2. 5. There is mild aortic regurgitation. 6. Mild mitral regurgitation is present. 7. Trace tricuspid regurgitation present. 8. There is no pericardial effusion. LENS FABRICATING MACHINE TENDER: Angeline Harris RDCS
--- NOTE | 2020-10-26 13:15 | P.CNNES ---
History of Present Illness Consult date: 10/26/20 Requesting physician: Raz Khalil Reason for Consult: Concern for stroke: Difficulty answering questions History of Present Illness: This is a 74-year-old woman with history of migraine with aura that presented to the emergency department on 10/25/2020 because of concern for stroke since the patient was having difficulty entering questions while having physical therapy. Patient stated that that the yesterday she was scheduled for physical therapy of her neck. Just prior to the therapy session she was bilateral neck pain but predominantly right that radiated all the way to the left temporal region as she felt was a mild the headache over the temporal region as well as like she felt like there is pressure in her head. And she also had the squiggly lines just prior to the headache according to the patient. She denies of any nausea any vomiting any focal weakness and then one upon getting the the physical therapy she had a hard time understanding the the therapist according to patient that the therapist had an accident and was difficult understanding. And that is the reason why she was counseled to respond a because of the headache in the was hard to understand the therapist. According the patient this was her typical migraine. Per the ED note the stated that this was not her typical ball upon a sking her she stated that this was her typical migraine. As a result the therapist felt that the patient needed that to come to the emergency. In the ED the patient had a slight left-sided headache but denied any visual field defect. And that did not have any focal deficits. Patient denied that this felt like her typical migraine. Patient follows up with Dr. Iyer for neurology management regarding her migraine headaches. He said that she has an appointment on with Dr. Iyer on the last week of this month. The patient and has no headache and denies any neck pain. Work-up in the hospital consisted of: This a lot of signs his blood pressure of 207/97, heart rate of 58, respiratory of 16, temperature of 97.9 Fahrenheit oral and pulse ox of 98% at room air. Adjuvant the patient's stay her blood pressure has been the systolic and 190s to 2/10. And diastolic has been in the range of 77-90s. But today in the morning of blood pressure has been in the 120s over 70s. CT of the head is reported as no acute abnormality, consider MRI for better evaluation. CT angiography of the head and neck is reported as negative for the neck as well as the brain. No evidence of hemodynamic stenosis. Carotid duplex is reported as minimal plaque and intimal thickening present without significant flow limiting stenosis. 2-D echo was reported as there is mild concentric left ventricular hypertrophy. Ejection fraction is between 55-60%. Normal left atrial size by volume. EKG was reported as normal sinus rhythm. Moderate voltage criteria for left ventricular, may be normal variant. Borderline EKG. She had an EEG on 10/13/2020 and is reported By Dr. Iyer as as this is an abnormal EEG showing findings consistent with subcortical more than cortical disturbance of neuronal dysfunction in the left temporal region, sometimes extending to the left parasagittal region. This carries with it some seizure potential. Findings do not miss early predict clinical seizure. Other feature of this EEG is unremarkable. And the patient is on Keppra 250 mg 1 tablet every 12 hours. Review of Systems Review of system: The 12 point system was reviewed and apparent positive and negative per HPI. Past Medical History Past Medical History: Cancer, CVA/TIA, Hyperlipidemia, Hypertension, Rheumatoid Arthritis (RA) Additional Past Medical History / Comment(s): migraines, varicose veins, h yperparathyroidism, melanoma, anemia History of Any Multi-Drug Resistant Organisms: None Reported Past Surgical History: Joint Replacement, Orthopedic Surgery Additional Past Surgical History / Comment(s): 03/2017 L foot surgery. left hip replacement Jul, 2018, Left knee replacement before left foot surgery Past Anesthesia/Blood Transfusion Reactions: No Reported Reaction Past Psychological History: No Psychological Hx Reported Smoking Status: Former smoker Past Alcohol Use History: Rare Past Drug Use History: None Reported - Past Family History Mother Family Medical History: Cancer Additional Family Medical History / Comment(s): stomach cancer Father Family Medical History: Cancer Additional Family Medical History / Comment(s): Prostate Cancer Sister(s) Family Medical History: Cancer Additional Family Medical History / Comment(s): Lung Cancer Medications and Allergies Home Medications Medication Instructions Recorded Confirmed Type Metoprolol Succinate (ER) [Toprol 50 mg PO DAILY 03/06/16 10/25/20 History XL] L.acidoph,Paracasei, B.lactis 2 cap PO DAILY 05/06/18 10/25/20 History [Probiotic] metHOTREXate sodium [Methotrexate] 20 mg PO TU 05/06/18 10/25/20 History Multivitamins, Thera [Multivitamin 2 tab PO DAILY 06/19/18 10/25/20 History (formulary)] lisinopriL [Prinivil] 20 mg PO BID 06/19/18 10/25/20 History Omeprazole [PriLOSEC] 20 mg PO AC-BRKFST 07/06/19 10/25/20 History Prolia(Dose Unknown) 1 injection IJ Q168D 07/06/19 10/25/20 History Butalb/Asprin/Caff 50-325-40Mg 1 cap PO Q4-6H PRN 09/07/20 10/25/20 History [Fiorinal 50-325-40 MG] Etanercept [Enbrel Sureclick] 50 mg SQ SA 09/07/20 10/25/20 History Ferrous Sulfate [Iron (65 MG 325 mg PO DAILY 09/07/20 10/25/20 History Elemental)] Ibuprofen [Motrin Ib] 200 mg PO Q4-6H PRN 09/07/20 10/25/20 History L-5-Mthf (Folate) 1700mcg 1 tab PO DAILY 09/07/20 10/25/20 History [place]-3 Fatty Acids/Fish Oil [Fish 1 cap PO DAILY 09/07/20 10/25/20 History Oil 1,000 mg Softgel] Policosanol (20mg) 1 tab PO BID 09/07/20 10/25/20 History Cholecalciferol [Vitamin D3 (25 50 mcg PO DAILY 10/25/20 10/25/20 History Mcg = 1000 Iu)] Allergies Allergy/AdvReac Type Severity Reaction Status Date / Time pseudoephedrine HCl Allergy Unknown Verified 10/25/20 17:14 [From [facility]] Sulfa (Sulfonamide Allergy Unknown Verified 10/25/20 17:14 Antibiotics) Physical Examination - Vital Signs Vital Signs: Vital Signs Temp Pulse Pulse Resp BP BP Pulse Ox 10/26/20 08:00 57 L 16 10/26/20 07:47 98.3 F 57 L 16 124/66 99 10/26/20 03:05 98.0 F 63 127/63 96 10/25/20 18:00 65 16 197/86 100 10/25/20 17:00 65 16 190/78 100 10/25/20 16:30 63 16 211/91 98 10/25/20 16:00 65 16 197/92 98 10/25/20 15:30 62 16 201/88 98 10/25/20 15:10 195/98 10/25/20 14:50 97.9 F 58 L 16 207/97 98 Intake and Output 10/25/20 10/26/20 10/26/20 22:59 06:59 14:59 Other: Voiding Method Toilet Weight 70.76 kg GENERAL: The patient is lying in bed and is not in acute distress. CHEST: The heart rate is regular rate rhythm. No murmurs to auscultation. LUNG: Clear to auscultation bilaterally no wheezing noted throughout. Not labored breathing. ABDOMEN/GI: Bowel sounds present in all 4 quadrants. No tenderness to palpation throughout. NEUROLOGICAL: Higher mental function: The patient is awake, alert, oriented to self, place and time. Patient is following commands. No aphasia and no neglect. Cranial nerves: The pupils are round, equal and reactive to light and accommodation. Visual dutta are full to confrontation throughout. Extraocular movement is intact no nystagmus is noted. Facial sensation is normal to touch throughout. The facial strength is normal throughout. Hearing is normal bilaterally to hand rub. Tongue is midline and moved [id number] without any difficulty. No dysarthria is noted. Shoulder shrug is normal bilaterally. Motor: Gait is normal with normal arms swings. The strength is 5 over 5 throughout. Normal tone and bulk. Cerebellum: Normal finger to nose heel to chin bilaterally. Sensation: Sensation is normal to touch throughout. Reflexes (right/left): 2+ throughout. Plantars are downgoing bilaterally. Results AST of 35 and AST of 24. Troponin is less than 0.012. Initial POC glucose is 89 Coagulation study: PT of 10.0, INR 0.9 and PTT of 22.7 Urinalysis is negative for urinary tract infection - Laboratory Findings CBC and BMP: 10/25/20 15:19 10/25/20 15:19 Abnormal Lab Findings: Abnormal Labs 10/25/20 10/25/20 15:19 15:20 Sodium 134 L Calcium 10.6 H Ur Leukocyte Esterase Trace H Assessment and Plan Assessment: This is a 74-year-old woman that presented to the emergency department on 10/25/2020 because of she was slow to respond upon getting physical therapy on that day. The episode resolved. On presentation her systolic blood pressure has been in the range of 190s to 210 and the diastolic is been in the range of 80-90s. Transient episodes of slow to respond possibly could be due to accelerated hypertension, headache/neck pain and she had understanding physical therapist (according to patient she did not understand her accent). I do not feel this was Transient ischemic attack Migraine with aura Accelerated hypertension---resolved. Plan: CT of the head is reported as no acute abnormality, consider MRI for better evaluation. CT angiography of the head and neck is reported as negative for the neck as well as the brain. No evidence of hemodynamic stenosis. Carotid duplex is reported as minimal plaque and intimal thickening present without significant flow limiting stenosis. 2-D echo was reported as there is mild concentric left ventricular hypertrophy. Ejection fraction is between 55-60%. Normal left atrial size by volume. Lipid panel is ordered and is pending Physical therapy and occupation therapy as well as [employer] are consulted. Regarding MRI the brain I don't feel the patient needs as an inpatient she has no focality or difficulty getting her words out as slurring the speech. As well as MRI the brain that can be done as an outpatient and L-spine notified her that she needs to follow-up with Dr. Iyer and assess whether he wants to pursue with the MRI the brain Patient is on aspirin 81 mg was started by primary team. she is not on statins since she said that the in the past when she was on 7 she had body aches. Patient is continued on her Keppra 250 mm and without twice a day which is her home dose. Upon discharge the patient needs to follow-up with her neurologist (Dr. Iyer) within 1-2 weeks From a neurology perspective the patient is clear for discharge. No further workup is needed Thank you for the consultation. Kenneth Meredith MD Neuro-Hospitalist Time with Patient: Greater than 30
--- NOTE | 2020-10-26 13:26 | P.DS ---
Providers Date of admission: 10/25/20 18:33 Expected date of discharge: 10/26/20 Attending physician: Lauren Tellez DO Consults: 10/25/20 18:33 Consult Physician Routine Consulting Provider: Kenneth Meredith Consult Reason/Comments: Possible TIA Do you want consulting provider notified?: Yes [facility] Course: This is a 74-year-old female with complex past medical history noted below who presented to the emergency room with an episode of confusion and being unable to answer questions at her physical therapist. She was evaluated in the ER and admitted to the hospital for further management of her medical problems noted below. 1. Hypertensive urgency, blood pressure improved and is back to an acceptable range with her home medications. Patient was advised to continue to monitor her blood pressure at home closely. Follow-up with PCP as directed. 2. Episode of confusion, resolved quickly prior to presentation. CVA ruled out. Patient had extensive workup including computed tomography scan of the head, CT angiography of the head and neck, and echocardiogram of the heart showing no significant abnormalities. EF was preserved. He was seen and evaluated by neurology. No further testing is recommended at this time. Plan to follow-up with her neurologist in the office. They'll obtain MRI of the brain as an outpatient. 3. Chronic medical problem: Essential hypertension, rheumatoid arthritis, hyperlipidemia, underlying seizure disorder Patient will be discharged home in a stable condition. For further details about this hospitalization please refer to the electronic chart. Time spent on discharge > 30 minutes including counseling and coordination of care Patient Condition at Discharge: Fair Plan - Discharge Summary New Discharge Prescriptions: New levETIRAcetam [Keppra] 250 mg PO Q12HR tab Continue Metoprolol Succinate (ER) [Toprol XL] 50 mg PO DAILY L.acidoph,Paracasei, B.lactis [Probiotic] 2 cap PO DAILY metHOTREXate sodium [Methotrexate] 20 mg PO TU lisinopriL [Prinivil] 20 mg PO BID Multivitamins, Thera [Multivitamin (formulary)] 2 tab PO DAILY Omeprazole [PriLOSEC] 20 mg PO AC-BRKFST Prolia(Dose Unknown) 1 injection IJ Q168D Etanercept [Enbrel Sureclick] 50 mg SQ SA Ferrous Sulfate [Iron (65 MG Elemental)] 325 mg PO DAILY Policosanol (20mg) 1 tab PO BID L-5-Mthf (Folate) 1700mcg 1 tab PO DAILY [place]-3 Fatty Acids/Fish Oil [Fish Oil 1,000 mg Softgel] 1 cap PO DAILY Butalb/Asprin/Caff 50-325-40Mg [Fiorinal 50-325-40 MG] 1 cap PO Q4-6H PRN PRN Reason: Migraine Headache Cholecalciferol [Vitamin D3 (25 Mcg = 1000 Iu)] 50 mcg PO DAILY Discontinued Ibuprofen [Motrin Ib] 200 mg PO Q4-6H PRN PRN Reason: Pain Discharge Medication List Metoprolol Succinate (ER) [Toprol XL] 50 mg PO DAILY 03/06/16 [History] L.acidoph,Paracasei, B.lactis [Probiotic] 2 cap PO DAILY 05/06/18 [History] metHOTREXate sodium [Methotrexate] 20 mg PO TU 05/06/18 [History] Multivitamins, Thera [Multivitamin (formulary)] 2 tab PO DAILY 06/19/18 [History] lisinopriL [Prinivil] 20 mg PO BID 06/19/18 [History] Omeprazole [PriLOSEC] 20 mg PO AC-BRKFST 07/06/19 [History] Prolia(Dose Unknown) 1 injection IJ Q168D 07/06/19 [History] Butalb/Asprin/Caff 50-325-40Mg [Fiorinal 50-325-40 MG] 1 cap PO Q4-6H PRN 09/07/20 [History] Etanercept [Enbrel Sureclick] 50 mg SQ SA 09/07/20 [History] Ferrous Sulfate [Iron (65 MG Elemental)] 325 mg PO DAILY 09/07/20 [History] L-5-Mthf (Folate) 1700mcg 1 tab PO DAILY 09/07/20 [History] [place]-3 Fatty Acids/Fish Oil [Fish Oil 1,000 mg Softgel] 1 cap PO DAILY 09/07/20 [History] Policosanol (20mg) 1 tab PO BID 09/07/20 [History] Cholecalciferol [Vitamin D3 (25 Mcg = 1000 Iu)] 50 mcg PO DAILY 10/25/20 [History] levETIRAcetam [Keppra] 250 mg PO Q12HR tab 10/26/20 [Rx] Follow up Appointment(s)/Referral(s): Maki Zhou MD [Primary Care Provider] - 1-2 days Chu Iyer DO [STAFF PHYSICIAN] - 1 Week Discharge Disposition: HOME SELF-CARE
[2020-10-26 16:18] LABS: Chol/HDL Ratio 4.24
[2020-10-28] MEDS ORDERED: ETANERCEPT 50 MG/ML SQ SCH (12:00)
[2020-10-31] MEDS ORDERED: metHOTREXate sodium 2.5 MG TAB PO SCH (09:00)
== END 2020-10-26 14:19 | disposition home or self-care (01) ==
LOC: EC 14:49 → 6NMEDSUR 18:33
PROVIDERS: ADMIT Internal Medicine; ATTEND Internal Medicine
DX: I16.0 Hypertensive urgency (principal); R41.0 Disorientation, unspecified; R51.9 Headache, unspecified; I11.9 Hypertensive heart disease without heart failure; M06.9 Rheumatoid arthritis, unspecified; E78.5 Hyperlipidemia, unspecified; G40.909 Epilepsy, unspecified, not intractable, without status epilepticus; G43.109 Migraine with aura, not intractable, without status migrainosus; I83.90 Asymptomatic varicose veins of unspecified lower extremity; E21.3 Hyperparathyroidism, unspecified; D64.9 Anemia, unspecified; I65.23 Occlusion and stenosis of bilateral carotid arteries; Z79.899 Other long term (current) drug therapy; Z88.8 Allergy status to other drugs, medicaments and biological substances; Z88.2 Allergy status to sulfonamides; Z85.820 Personal history of malignant melanoma of skin; Z86.73 Personal history of transient ischemic attack (TIA), and cerebral infarction without residual deficits; Z96.642 Presence of left artificial hip joint; Z98.890 Other specified postprocedural states; Z96.652 Presence of left artificial knee joint; Z87.891 Personal history of nicotine dependence; Z80.0 Family history of malignant neoplasm of digestive organs; Z80.42 Family history of malignant neoplasm of prostate; Z80.1 Family history of malignant neoplasm of trachea, bronchus and lung
CPT/HCPCS: 96372; 96374; 99285; 36415; 93005; 93306; 97161; 97165; 80061; 80053; 82550; 84484; 85025; 85610; 85730; 81001; 71046; 93880; 70496; 70450; 70498; G0378 ×2; J1644; Q9967

== ENCOUNTER → 2020-11-07 | Outpatient (CLI) | payer MEDICARE ==
[2020-11-07 12:48] VITALS: BP 168/78; PULSE 62; RESP 16; TEMP 98.1
== END | disposition home or self-care (01) ==
LOC: PROCWHC3 11:26
PROVIDERS: ATTEND Internal Medicine
DX: M81.0 Age-related osteoporosis without current pathological fracture (principal)
CPT/HCPCS: 96372; J0897

== ENCOUNTER → 2021-02-20 | Outpatient (CLI) | payer MEDICARE ==
--- NOTE | 2021-02-20 11:03 | US ---
EXAMINATION TYPE: US axilla LT DATE OF EXAM: 02/20/2021 COMPARISON: NONE CLINICAL HISTORY: R22.9 Localized swelling, mass and lump, unspecified. Lymph nodes felt by 5 weeks prior following Covid shot, worse on left. Largest left axillary lymph node measuring 1.5 x 0.7 x 1.0cm. This is most likely reactive. The alejandra x is not thickened. IMPRESSION: 1. Large left axillary lymph node measures 1.5 cm. This is most likely reactive. The cortex is not th ickened.
--- NOTE | 2021-02-20 11:08 | US ---
EXAMINATION TYPE: US axilla RT DATE OF EXAM: 02/20/2021 COMPARISON: NONE CLINICAL HISTORY: R22.9 localized swelling, mass and lump Enlarged lymph nodes felt [address] cronin Covid shot. FINDINGS:No lymph nodes are seen within the right axilla. IMPRESSION: 1. No right axillary lymph nodes are seen.
== END | disposition home or self-care (01) ==
LOC: RADUSWWP 10:08
PROVIDERS: ATTEND Family Medicine
DX: R59.0 Localized enlarged lymph nodes (principal); R22.9 Localized swelling, mass and lump, unspecified

== ENCOUNTER 2021-03-09 10:32 | Emergency (ER) | payer MEDICARE ==
[2021-03-09 10:37] VITALS: TEMP 97.7
--- NOTE | 2021-03-09 11:35 | ED ---
Lower Extremity Injury HPI - General Chief Complaint: Extremity Injury, Lower Stated Complaint: rt knee pain Time Seen by Provider: 03/09/21 10:57 Source: patient, family Mode of arrival: wheelchair Limitations: no limitations - History of Present Illness Initial Comments: Patient is a 75-year-old female with history of rheumatoid arthritis, presenting to emergency Department with complaints of right knee pain that started yesterday. Patient states she was sitting at her desk for about an hour doing bills and then when she went to stand up she had severe pain in her right knee. She states throughout yesterday evening and today it continues so she came in for evaluation. She denies any surgical history of her right lower extremity, she does have a left total hip and left total knee. She states she did hurt her back a few days ago and feels like she has been favoring her right leg. She denies any injuries or falls, no fevers or chills. She has no history of blood clots. No chest pain or short of breath. She has no further complaints. - Related Data Home Medications Medication Instructions Recorded Confirmed Metoprolol Succinate (ER) [Toprol 50 mg PO DAILY 03/06/16 11/07/20 XL] L.acidoph,Paracasei, B.lactis 2 cap PO DAILY 05/06/18 11/07/20 [Probiotic] metHOTREXate sodium [Methotrexate] 20 mg PO TU 05/06/18 11/07/20 Multivitamins, Thera [Multivitamin 2 tab PO DAILY 06/19/18 11/07/20 (formulary)] lisinopriL [Prinivil] 20 mg PO BID 06/19/18 11/07/20 Omeprazole [PriLOSEC] 20 mg PO AC-BRKFST 07/06/19 11/07/20 Prolia(Dose Unknown) 1 injection IJ Q168D 07/06/19 11/07/20 Butalb/Asprin/Caff 50-325-40Mg 1 cap PO Q4-6H PRN 09/07/20 11/07/20 [Fiorinal 50-325-40 MG] Etanercept [Enbrel Sureclick] 50 mg SQ SA 09/07/20 11/07/20 Ferrous Sulfate [Iron (65 MG 325 mg PO DAILY 09/07/20 11/07/20 Elemental)] L-5-Mthf (Folate) 1700mcg 1 tab PO DAILY 09/07/20 11/07/20 [place]-3 Fatty Acids/Fish Oil [Fish 1 cap PO DAILY 09/07/20 11/07/20 Oil 1,000 mg Softgel] Policosanol (20mg) 1 tab PO BID 09/07/20 11/07/20 Cholecalciferol [Vitamin D3 (25 50 mcg PO DAILY 10/25/20 11/07/20 Mcg = 1000 Iu)] levETIRAcetam [Keppra] 250 mg PO DAILY 11/07/20 11/07/20 Allergies Allergy/AdvReac Type Severity Reaction Status Date / Time pseudoephedrine HCl Allergy Unknown Verified 03/09/21 10:38 [From Sudafed] Sulfa (Sulfonamide Allergy Unknown Verified 03/09/21 10:38 Antibiotics) Review of Systems ROS Statement: Those systems with pertinent positive or pertinent negative responses have been documented in the HPI. ROS Other: All systems not noted in ROS Statement are negative. Past Medical History Past Medical History: Cancer, CVA/TIA, Hyperlipidemia, Hypertension, Rheumatoid Arthritis (RA) Additional Past Medical History / Comment(s): migraines, varicose veins, hyperparathyroidism, melanoma, anemia History of Any Multi-Drug Resistant Organisms: None Reported Past Surgical History: Joint Replacement, Orthopedic Surgery Additional Past Surgical History / Comment(s): 03/2017 L foot surgery. left hip replacement Jul, 2018, Left knee replacement before left foot surgery Past Anesthesia/Blood Transfusion Reactions: No Reported Reaction Past Psychological History: No Psychological Hx Reported Smoking Status: Former smoker Past Alcohol Use History: Rare Past Drug Use History: None Reported - Past Family History Mother Family Medical History: Cancer Additional Family Medical History / Comment(s): stomach cancer Father Family Medical History: Cancer Additional Family Medical History / Comment(s): Prostate Cancer Sister(s) Family Medical History: Cancer Additional Family Medical History / Comment(s): Lung Cancer General Exam - General Exam Comments Initial Comments: GENERAL: Patient is well-developed and well-nourished. Patient is nontoxic and in no acute distress. HEAD: Atraumatic, normocephalic. EYES: Pupils equal round and reactive to light, extraocular movements intact, sclera anicteric, conjunctiva are normal. Eyelids were unremarkable. ENT: Nares patent, oropharynx clear without exudates. Moist mucous membranes. NECK: Normal range of motion, supple without lymphadenopathy or JVD. LUNGS: Unlabored respirations. Breath sounds clear to auscultation bilaterally and equal. No wheezes rales or rhonchi. HEART: Regular rate and rhythm without murmurs, rubs or gallops. ABDOMEN: Soft, nontender, normoactive bowel sounds. No guarding, no rebound. No masses appreciated. : Deferred MUSCULOSKELETAL: Patient has mild pain with palpation of the medial aspect of the right knee, joint line aspect. There is no swelling, no erythema, she does have full active range of motion. She is neurovascular intact bilateral lower extremities. No clubbing or cyanosis. NEUROLOGICAL: Patient is alert and oriented x 3. Motor and sensory are also intact. Cranial nerves II through XII grossly intact. Symmetrical smile. Normal speech, normal gait. PSYCH: Normal mood, normal affect. SKIN: Warm, Dry, normal turgor, no rashes or lesions noted. Limitations: no limitations Course Vital Signs 03/09/21 10:33 Temperature 97.7 F Pulse Rate 63 Respiratory 18 Rate Blood Pressure 139/68 O2 Sat by Pulse 99 Oximetry Medical Decision Making - Medical Decision Making Patient is a 75-year-old female here for right knee pain started yesterday after she stood up from a sitting position. She does have history of rheumatoid arthritis. No falls or trauma. Her knee has no swelling, no erythema. No history of DVTs. X-ray of the right knee today shows no evidence of acute fracture dislocation. She does have some meniscal calcification, narrowing of some compartments. I discussed these findings with the patient. I recommended anti-inflammatories, elevation, and rest. She can follow-up with her physician. She is in agreement with this plan of care and she is stable for discharge. Case discussed with Dr. Meehan. Disposition Clinical Impression: Right knee pain Disposition: HOME SELF-CARE Condition: Stable Instructions (If sedation given, give patient instructions): Knee Pain (ED) Additional Instructions: Please return to the Emergency Department if symptoms worsen or any other concerns. Recommend ice and/or heat to the area, elevation, rest. May also try anti-inflammatories such as ibuprofen or Aleve. If symptoms persist, follow up with your orthopedic doctor or your primary care physician. Is patient prescribed a controlled substance at d/c from ED?: No Referrals: Maki Zhou MD [Primary Care Provider] - 1-2 days Time of Disposition: 12:04
--- NOTE | 2021-03-09 11:49 | XR ---
EXAMINATION TYPE: XR knee complete RT DATE OF EXAM: 03/09/2021 CLINICAL HISTORY: Sudden onset pain. TECHNIQUE: Three views of the right knee are obtained. COMPARISON: None. FINDINGS: There is no acute fracture/dislocation evident in right knee. Meniscal calcification is se en consistent with underlying chondrocalcinosis. Mild narrowing medial tibiofemoral compartment. Mode rate narrowing patellofemoral compartment. Increased density consistent with small suprapatellar join t effusion. No significant spurring. IMPRESSION: There is no acute fracture or dislocation in the right knee.
[2021-03-09 12:16] VITALS: BP 133/65; PULSE 75; RESP 20
== END 2021-03-09 12:16 | disposition home or self-care (01) ==
LOC: EC 10:32
DX: M25.561 Pain in right knee (principal); E78.5 Hyperlipidemia, unspecified; I10 Essential (primary) hypertension; M06.9 Rheumatoid arthritis, unspecified; D64.9 Anemia, unspecified; Z87.891 Personal history of nicotine dependence; Z86.73 Personal history of transient ischemic attack (TIA), and cerebral infarction without residual deficits; Z85.820 Personal history of malignant melanoma of skin
CPT/HCPCS: 99283

== ENCOUNTER → 2021-03-16 | Outpatient (CLI) | payer MEDICARE ==
[2021-03-16 18:13] LABS: African American GFR (CKD) 82.4 (60.0-200.0); Anion Gap 5.2 mmol/L (4.00-12.00); BUN/Creat Ratio 16.25 Ratio (12.00-20.00); Calcium 10.2 mg/dL (8.7-10.3); Carbon Dioxide 26.8 mmol/L (21.6-31.8); Non-African American GFR(CKD) 71.1 (60.0-200.0)
== END | disposition home or self-care (01) ==
LOC: LABWHC1 09:50
PROVIDERS: ATTEND Nurse Practitioner Adult Health
DX: I10 Essential (primary) hypertension (principal)
CPT/HCPCS: 36415; 80048

== ENCOUNTER → 2021-03-22 | Outpatient (CLI) | payer MEDICARE ==
--- NOTE | 2021-03-22 09:58 | US ---
EXAMINATION TYPE: US abdomen complete DATE OF EXAM: 03/22/2021 COMPARISON: Renal US CLINICAL HISTORY: R10.0 abd pain R10.9 R Flank pain. Patient stated has right pelvic pain that radiat es up abdomen and occurring intermittently x 2 months; gallbladder removed. EXAM MEASUREMENTS: Liver Length: 15.5 cm Gallbladder Wall: surgically removed CBD: 0.4 cm Spleen: 8.2 cm Right Kidney: 9.7 x 4.5 x 4.3 cm Left Kidney: 8.4 x 5.0 x 5.6 cm Pancreas: wnl Liver: lobular periphery noted left lobe, otherwise appears wnl. Gallbladder: surgically absent Evidence for sonographic Donato's sign: no CBD: wnl Spleen: wnl Right Kidney: No hydronephrosis or masses seen Left Kidney: No hydronephrosis or masses seen Upper IVC: wnl Abd Aorta: ectatic appearance throughout with intimal thickening noted intermittently The liver is homogenous. The intrahepatic portion of the IVC and proximal abdominal aorta are within normal limits. Common bile duct is unremarkable. The visualized portions of the pancreas are homog enous. The spleen is unremarkable. Kidneys are symmetric and free of hydronephrosis. No renal lesi ons are seen. IMPRESSION: Status post cholecystectomy
--- NOTE | 2021-03-22 11:08 | US ---
EXAMINATION TYPE: US transvaginal DATE OF EXAM: 03/22/2021 COMPARISON: 11/18/2019 CLINICAL HISTORY: R10.0 abd pain R10.9 R Flank pain. TECHNIQUE: Transvaginal performed, patients bladder not filled well enough for transabdominal. Date of LMP: Late 50's. EXAM MEASUREMENTS: Uterus: 6.5 x 3.0 x 3.4 cm Endometrial Stripe: 0.5 cm Right Ovary: 1.1 x 1.6 x 1.1 cm Left Ovary: not seen 1. Uterus: anteflexed, heterogeneous 2. Endometrium: difficult to visualized due to uterine tilt, may be slightly thickened 3. Right Ovary: wnl 4. Left Ovary: Obscured by overlying bowel gas 5. Bilateral Adnexa: wnl 6. Posterior cul-de-sac: wnl IMPRESSION: Endometrium is not well visualized due to uterine positioning. Repeat imaging may be obtained in 6-8 weeks, depending upon clinical scenario.
== END | disposition home or self-care (01) ==
LOC: RADUSWWP 08:59
PROVIDERS: ATTEND Family Medicine
DX: R10.9 Unspecified abdominal pain (principal); Z90.49 Acquired absence of other specified parts of digestive tract
CPT/HCPCS: 76700; 76830

== ENCOUNTER → 2021-04-10 | Outpatient (CLI) | payer MEDICARE | END | disposition home or self-care (01) | DX: I10 Essential (primary) hypertension (principal) | CPT/HCPCS: 36415; 80048 ==

== ENCOUNTER → 2021-05-09 | Outpatient (CLI) | payer MEDICARE ==
[2021-05-09 11:44] VITALS: BP 120/70; PULSE 53; RESP 16; TEMP 97.8
== END ==
LOC: PROCWHC3 11:21
PROVIDERS: ATTEND Internal Medicine
DX: M81.0 Age-related osteoporosis without current pathological fracture (principal); Z88.2 Allergy status to sulfonamides; Z87.891 Personal history of nicotine dependence; Z88.8 Allergy status to other drugs, medicaments and biological substances
CPT/HCPCS: 96372; J0897

== ENCOUNTER → 2021-05-30 | Outpatient (CLI) | payer MEDICARE | END | disposition home or self-care (01) | LOC: LABPAT 08:58 | PROVIDERS: ATTEND Orthopaedic Surgery | DX: Z01.812 Encounter for preprocedural laboratory examination (principal); M23.91 Unspecified internal derangement of right knee | CPT/HCPCS: 36415; 80051; 85025 ==

== ENCOUNTER 2021-06-13 07:59 | Day surgery (SDC) | payer MEDICARE ==
[2021-05-30 09:53] LABS: Potassium 4.1 mmol/L (3.5-5.1)
[2021-05-30 10:29] LABS: HCT 35.4 % (34.0-46.0); HGB 12.1 gm/dL (11.4-16.0); MCH 34.4 pg (25.0-35.0); MCHC 34.3 g/dL (31.0-37.0); MCV 100.2 fL (80.0-100.0); Macrocytosis Slight; Mean Platelet Volume 6.7; Platelet Count 296 k/uL (150-450); RBC 3.53 m/uL (3.80-5.40); RDW 13.8 % (11.5-15.5); WBC 6.5 k/uL (3.8-10.6)
[2021-05-30 11:15] LABS: Band Neutrophils % 2 %; Eosinophils # (M) 0.13 k/uL (0-0.7); Lymphocytes # (M) 2.86 k/uL (1.0-4.8); Monocytes # (M) 0.26 k/uL (0-1.0); Neutrophils % (M) 48 %; Nucleated Red Blood Cells 0 /100 WBC (0-0); Poikilocytosis (M) Present; Total Cells Counted 100
[2021-06-06 14:43] VITALS: BMI 25.2
--- NOTE | 2021-06-12 10:16 | HP ---
HISTORY AND PHYSICAL REASON FOR ADMISSION: Surgery scheduled for 06/13/2021 HISTORY OF PRESENT ILLNESS: Lula Trujillo is a 75-year-old patient seen with progressive right knee pain. We discussed options for treatment. She elected to proceed with arthroscopy. Consent was obtained. PAST MEDICAL HISTORY: Hypertension, hyperlipidemia, rheumatoid arthritis. PAST SURGICAL HISTORY: Knee arthroscopy. MEDICATIONS: Crestor, furosemide, lisinopril, methotrexate, metoprolol. ALLERGIES: SULFA. SOCIAL HISTORY: She denies tobacco use. PHYSICAL EVALUATION OF THE RIGHT KNEE: Range of motion is -2 to 125. There is a mild moderate effusion. Tenderness along the medial joint line. Tenderness along lateral joint line. Positive medial Mahogany's. Positive lateral Mahogany's. Ligaments stable. Hip rotation without pain. Distal neurovascular exam is intact. RADIOGRAPHS: Radiographs of the right knee revealed moderate osteoarthritic changes. MRI right knee revealed medial meniscal tear, lateral meniscal tear, osteoarthritis and intraarticular effusion. IMPRESSION: 1. Internal derangement of right knee with medial and lateral meniscal tears. 2. Hypertension. 3. Hyperlipidemia. 4. Rheumatoid arthritis. PLAN: Right knee arthroscopy with partial meniscectomy and debridement. Surgery scheduled for 06/13/2021. MMODL / IJN: [id number] /
[~2021-06-13 07:59] MED LIST changes: -DENOSUMAB 60 MG/ML 1 ML SYRINGE SQ NR; +DEXAMETHASONE SOD PHOSPHATE 4 MG/ML 1 ML VIAL IV ONE; +HYDROmorphone 0.5 MG/0.5 ML SYRINGE IVP PRN; +LACTATED RINGERS 1,000 ML IV SCH; +LIDOCAINE 1% (10MG/ML) FOR IV START INTRADERMA PRN; +MIDAZOLAM 2 MG/2 ML VIAL IV PRN; +ONDANSETRON 4 MG/2 ML VIAL IVP ONE
[2021-06-13 08:33] VITALS: RESP 16
[2021-06-13] MEDS ORDERED: BUPIVACAINE (PF) 0.25% 30 ML VIAL SQ ONE ×2 (09:34→10:16)
[2021-06-13] MEDS ORDERED: PHENYLEPHRINE-0.9% NACL SYG 1,000 MCG/10 ML SYRINGE ONE (09:40)
[2021-06-13] MEDS ORDERED: fentaNYL (PF) 50 MCG/ML 2 ML AMP ONE (09:40)
[2021-06-13] MEDS ORDERED: LIDOCAINE 1% INJ 10MG/ML (20 ML MDV) ONE (09:40)
[2021-06-13] MEDS ORDERED: MIDAZOLAM 2 MG/2 ML VIAL ONE (09:40)
[2021-06-13] MEDS ORDERED: PROPOFOL 10 MG/ML 20 ML VIAL IV ONE (09:40)
--- NOTE | 2021-06-13 10:31 | P.OP ---
Date of Procedure: 06/13/21 Preoperative Diagnosis: Internal derangement right knee Postoperative Diagnosis: 1. Tear medial meniscus right knee 2. Grade 2/3 chondromalacia medial femoral condyle right knee 3. Reactive synovitis medial, lateral and suprapatellar compartments right knee Procedure(s) Performed: 1. Arthroscopic partial medial meniscectomy right knee 2. Arthroscopic chondroplasty medial femoral condyle right knee 3. Arthroscopic partial synovectomy medial, lateral and suprapatellar compartments right knee Anesthesia: LIAMA, local Surgeon: Hany Barclay Estimated Blood Loss (ml): 7 Pathology: none sent Condition: stable Disposition: PACU Indications for Procedure: 75-year-old patient seen with progressive right knee pain. After treatment options were discussed, she elected to proceed with arthroscopy. Operative Findings: see description of procedure Description of Procedure: Patient was taken to the operative suite. Patient underwent a general anesthetic by the department of anesthesia. Patient was given preoperative antibiotics. The right lower extremity was placed in a well-padded arthroscopic leg hart. The I leg was prepped and draped in the normal sterile orthopedic fashion. A lateral parapatellar and suprapatellar incision was made. Trochars were inserted. Arthroscopy was initiated. Suprapatellar pouch revealed diffuse thick reactive synovitis. The patellofemoral joint appeared to articulate michele ruently. There was grade 2/3 chondromalacia of the patellofemoral joint with no osteochondral tears present. The scope was guided into the medial gutter. No loose bodies or plica were identified The scope was then guided into the medial compartment. A medial parapatellar incision was made. Trocar inserted followed by probe. There was a complex tear posterior horn medial meniscus extending sl ightly into the mid body. There were grade 2/3 chondromalacia changes of the medial femoral condyle with some diffuse osteochondral tears present. There was some thick reactive synovitis anteriorly. I performed a partial medial meniscectomy getting down to stable meniscal tissue. I performed a chondroplasty of the medial femoral condyle getting down to stable osteochondral tissue. I performed a partial synovectomy decompressing the thick reactive synovitis. The residual meniscus was probed and found to be stable. The residual osteochondral surface appeared stable. There was good decompression of the synovitis. Scope and probe were then guided into the intercondylar notch. Cruciates were identified, probed and found to be stable. The scope and probe were then guided into lateral compartment. The lateral meniscus reveals some mild superficial fraying midbody area. There were grade 1 chondromalacia changes lateral compartment with no tears. There was thick reactive synovitis anteriorly. I introduced a motorized shaver and debrided out that area fraying of the midbody lateral meniscus. I now performed a partial synovectomy decompressing the thick reactive synovitis. The shaver was removed. There appeared be good decompression of the synovitis. The scope was in guided back into the suprapatellar compartment. I introduced a motorized shaver into the suprapatellar compartment. I debrided some piecemeal fragments of meniscus I encountered. I performed a partial synovectomy decompressing the thick reactive synovitis. The shaver was removed. There appeared be good decompression of the synovitis. I took one more look around the entire knee, no residual debris. Instruments were now removed from the joint. The joint was infiltrated with .25% Marcaine. Steri-Strips were applied to the portal sites. Sterile dressings were applied. The patient was placed into a ROMEL hose. No tourniquet was utilized. The patient was awakened, transferred to a bed and taken to recovery stable satisfactory condition.
[2021-06-13 10:40] VITALS: TEMP 96.8
[2021-06-13 12:35] VITALS: BP 146/76; PULSE 68
== END 2021-06-13 13:15 | disposition home or self-care (01) ==
LOC: OR 07:59
PROVIDERS: ATTEND Orthopaedic Surgery
DX: S83.241A Other tear of medial meniscus, current injury, right knee, initial encounter (principal); M17.11 Unilateral primary osteoarthritis, right knee; M65.861 Other synovitis and tenosynovitis, right lower leg; M94.261 Chondromalacia, right knee; E78.5 Hyperlipidemia, unspecified; K21.9 Gastro-esophageal reflux disease without esophagitis; I10 Essential (primary) hypertension; M06.9 Rheumatoid arthritis, unspecified; Z79.899 Other long term (current) drug therapy; Z88.2 Allergy status to sulfonamides
CPT/HCPCS: 29876; 29881; 80051; 85025; 36415; J2250; J1100; J2405; J0690; J2001; J3010; J2370; J2704; J1170

== ENCOUNTER → 2021-06-22 | Outpatient (CLI) | payer MEDICARE ==
[2021-06-23 05:01] LABS: African American GFR (CKD) 71.5 (60.0-200.0); Anion Gap 8.4 mmol/L (4.00-12.00); BUN/Creat Ratio 15.56 Ratio (12.00-20.00); Calcium 10.2 mg/dL (8.7-10.3); Carbon Dioxide 24.6 mmol/L (21.6-31.8); Non-African American GFR(CKD) 61.7 (60.0-200.0); Potassium 4.2 mmol/L (3.5-5.5)
== END | disposition home or self-care (01) ==
LOC: LABWHC1 11:14
PROVIDERS: ATTEND Internal Medicine Nephrology
DX: E87.1 Hypo-osmolality and hyponatremia (principal)
CPT/HCPCS: 36415; 80048

== ENCOUNTER → 2021-07-04 | Outpatient (CLI) | payer MEDICARE ==
[2021-07-04 10:14] LABS: Appearance,Urine Clear (Clear); Bilirubin,Urine Negative (Negative); Blood,Urine Negative (Negative); Color,Urine Yellow; Glucose,Urine (UA) Negative (Negative); Ketones,Urine Negative (Negative); Leukocyte Esterase,Urine Negative (Negative); Nitrite,Urine Negative (Negative); PH, Urine 6.5 (5.0-8.0); Protein,Urine Negative (Negative); Specific Gravity,Urine 1.009 (1.001-1.035); Urobilinogen,Urine <2.0 mg/dL (<2.0)
[2021-07-04 13:52] LABS: Creatinine,Urine Random 74.1 mg/dL; Protein/Creatinine Ratio,Urine 0.175
[2021-07-04 16:20] LABS: Basophils # (A) 0.03 X 10*3/uL (0.00-0.10); Basophils % (A) 0.6 %; Eosinophils # (A) 0.09 X 10*3/uL (0.04-0.35); Eosinophils % (A) 1.8 %; HCT 33.7 % (37.2-46.3); HGB 10.8 g/dL (12.0-15.0); Lymphocytes # (A) 1.93 X 10*3/uL (0.90-5.00); Lymphocytes % (A) 39.2 %; MCH 32.5 pg (27.0-32.0); MCV 101.5 fL (80.0-97.0); Mean Platelet Volume 9.4 fL (9.5-12.2); Monocytes # (A) 0.44 X 10*3/uL (0.20-1.00); Monocytes % (A) 8.9 %; Neutrophils # (A) 2.42 X 10*3/uL (1.80-7.70); Neutrophils % (A) 49.3 %; Platelet Count 263 X 10*3/uL (140-440); RBC 3.32 X 10*6/uL (4.10-5.20); RDW 12.8 % (11.5-14.5); WBC 4.92 X 10*3/uL (4.50-10.00)
[2021-07-06 21:21] LABS: % Iron Saturation 34.91 (12.00-45.00); African American GFR (CKD) 98.2 (60.0-200.0); Albumin 4.1 g/dL (3.8-4.9); Anion Gap 15.6 mmol/L (4.00-12.00); BUN/Creat Ratio 19.64 Ratio (12.00-20.00); Blood Urea Nitrogen 13.2 mg/dL (9.0-27.0); Calcium 10.5 mg/dL (8.7-10.3); Carbon Dioxide 16.1 mmol/L (21.6-31.8); Magnesium 2.2 mg/dL (1.5-2.4); Non-African American GFR(CKD) 84.7 (60.0-200.0); Phosphorus 2.9 mg/dL (2.4-5.1); Potassium 4.2 mmol/L (3.5-5.5); Uric Acid 5.7 mg/dL (2.9-7.7)
== END | disposition home or self-care (01) ==
LOC: LABWHC1 09:40
PROVIDERS: ATTEND Internal Medicine Nephrology
DX: E87.1 Hypo-osmolality and hyponatremia (principal); E55.9 Vitamin D deficiency, unspecified; D64.9 Anemia, unspecified; M10.9 Gout, unspecified; N25.81 Secondary hyperparathyroidism of renal origin; N39.0 Urinary tract infection, site not specified; R80.9 Proteinuria, unspecified
CPT/HCPCS: 36415; 80048; 81003; 82040; 82306; 82533; 82570; 82728; 83540; 83550; 83735; 83970; 84100; 84156; 84443; 84550; 85025

== ENCOUNTER → 2021-07-05 | Outpatient (CLI) | payer MEDICARE ==
--- NOTE | 2021-07-09 10:51 | MM ---
Reason for exam: screening (asymptomatic). Last mammogram was performed 1 year and 1 month ago. History: Patient is postmenopausal and has history of other cancer at age 60. Family history of breast cancer in aunt at age 50 and breast cancer in aunt at age 45. Cyst aspiration of the left breast. Took estrogen for 4 years 6 months beginning at age 57. Physical Findings: A clinical breast exam by your physician is recommended on an annual basis and results should be correlated with mammographic findings. MG 3D Screening Mammo W/Cad Bilateral CC and MLO view(s) were taken. Prior study comparison: June 05, 2020, bilateral MG 3d screening mammo w/cad. April 28, 2019, bilateral MG 3d screening mammo w/cad. March 05, 2018, bilateral MG 3d screening mammo w/cad. The breast tissue is heterogeneously dense. This may lower the sensitivity of mammography. No significant changes when compared with prior studies. ASSESSMENT: Benign, BI-RAD 2 RECOMMENDATION: Routine screening mammogram of both breasts in 1 year.
== END | disposition home or self-care (01) ==
LOC: RADMAMWWP 15:34
PROVIDERS: ATTEND Family Medicine
DX: Z12.31 Encounter for screening mammogram for malignant neoplasm of breast (principal); Z78.0 Asymptomatic menopausal state; Z80.3 Family history of malignant neoplasm of breast
CPT/HCPCS: 77063; 77067

== ENCOUNTER → 2021-09-18 | Outpatient (CLI) | payer MEDICARE ==
[2021-09-18 22:14] LABS: African American GFR (CKD) 79.4 (60.0-200.0); Anion Gap 12.7 mmol/L (10.00-18.00); BUN/Creat Ratio 17.82 Ratio (12.00-20.00); Blood Urea Nitrogen 14.7 mg/dL (9.0-27.0); Calcium 10.5 mg/dL (8.7-10.3); Carbon Dioxide 22.7 mmol/L (20.0-27.5); Non-African American GFR(CKD) 68.5 (60.0-200.0); Potassium 4.2 mmol/L (3.5-5.5)
== END | disposition home or self-care (01) ==
LOC: LABWHC1 12:37
PROVIDERS: ATTEND Nurse Practitioner Adult Health
DX: E87.1 Hypo-osmolality and hyponatremia (principal)
CPT/HCPCS: 36415; 80048

== ENCOUNTER → 2021-11-12 | Outpatient (CLI) | payer MEDICARE ==
[~2021-11-12] MED LIST changes: +DENOSUMAB 60 MG/ML 1 ML SYRINGE SQ NR; -DEXAMETHASONE SOD PHOSPHATE 4 MG/ML 1 ML VIAL IV ONE; -HYDROmorphone 0.5 MG/0.5 ML SYRINGE IVP PRN; -LACTATED RINGERS 1,000 ML IV SCH; -LIDOCAINE 1% (10MG/ML) FOR IV START INTRADERMA PRN; -MIDAZOLAM 2 MG/2 ML VIAL IV PRN; -ONDANSETRON 4 MG/2 ML VIAL IVP ONE
[2021-11-12 13:16] VITALS: BP 132/51; PULSE 73; RESP 18; TEMP 97.7
== END ==
LOC: PROCWHC3 13:03
PROVIDERS: ATTEND Internal Medicine
DX: M81.0 Age-related osteoporosis without current pathological fracture (principal); Z87.891 Personal history of nicotine dependence; Z88.2 Allergy status to sulfonamides; Z88.8 Allergy status to other drugs, medicaments and biological substances
CPT/HCPCS: 96372; J0897

== ENCOUNTER → 2022-04-25 | Outpatient (CLI) | payer MEDICARE ==
[2022-04-25 14:23] LABS: African American GFR (CKD) 81.8 (60.0-200.0); Anion Gap 7.7 mmol/L (10.00-18.00); BUN/Creat Ratio 16.5 Ratio (12.00-20.00); Blood Urea Nitrogen 13.2 mg/dL (9.0-27.0); Calcium 10.5 mg/dL (8.7-10.3); Carbon Dioxide 25.3 mmol/L (20.0-27.5); Non-African American GFR(CKD) 70.6 (60.0-200.0); Potassium 4.7 mmol/L (3.5-5.5)
== END | disposition home or self-care (01) ==
LOC: LABWHC1 09:56
PROVIDERS: ATTEND Nurse Practitioner Adult Health
DX: E87.1 Hypo-osmolality and hyponatremia (principal)
CPT/HCPCS: 36415; 80048

== ENCOUNTER → 2022-05-13 | Outpatient (CLI) | payer MEDICARE ==
[2022-05-13 10:19] VITALS: BP 149/71; PULSE 60; RESP 16; TEMP 97.9
== END ==
LOC: PROCWHC3 10:06
PROVIDERS: ATTEND Internal Medicine
DX: M81.0 Age-related osteoporosis without current pathological fracture (principal); Z88.2 Allergy status to sulfonamides; Z88.8 Allergy status to other drugs, medicaments and biological substances; Z87.891 Personal history of nicotine dependence
CPT/HCPCS: 96372; J0897

== ENCOUNTER → 2022-08-01 | Outpatient (CLI) | payer MEDICARE ==
[2022-08-01 18:27] LABS: Basophils # (A) 0.05 X 10*3/uL (0.00-0.10); Basophils % (A) 0.8 %; Eosinophils # (A) 0.12 X 10*3/uL (0.04-0.35); Eosinophils % (A) 1.9 %; HCT 35.8 % (37.2-46.3); HGB 11.7 g/dL (12.0-15.0); Immature Grans, Automated 0 %; Lymphocytes # (A) 2.69 X 10*3/uL (0.90-5.00); Lymphocytes % (A) 42.6 %; MCH 33.2 pg (27.0-32.0); MCHC 32.7 g/dL (32.0-37.0); MCV 101.7 fL (80.0-97.0); Mean Platelet Volume 9.7 fL (9.5-12.2); Monocytes # (A) 0.41 X 10*3/uL (0.20-1.00); Monocytes % (A) 6.5 %; NRBC Per 100 WBC 0 /100 WBCS (0.0-0.0); Neutrophils # (A) 3.05 X 10*3/uL (1.80-7.70); Neutrophils % (A) 48.2 %; Platelet Count 277 X 10*3/uL (140-440); RBC 3.52 X 10*6/uL (4.10-5.20); RDW 13.3 % (11.5-14.5); WBC 6.32 X 10*3/uL (4.50-10.00)
[2022-08-01 18:40] LABS: African American GFR (CKD) 69.5 (60.0-200.0); Anion Gap 8.6 mmol/L (10.00-18.00); BUN/Creat Ratio 14.63 Ratio (12.00-20.00); Blood Urea Nitrogen 13.4 mg/dL (9.0-27.0); Calcium 10.5 mg/dL (8.7-10.3); Potassium 4.1 mmol/L (3.5-5.5)
== END | disposition home or self-care (01) ==
LOC: LABWHC1 12:19
PROVIDERS: ATTEND Psychiatry & Neurology Neurology
DX: Z51.81 Encounter for therapeutic drug level monitoring (principal)
CPT/HCPCS: 36415; 80048; 85025

== ENCOUNTER → 2023-01-22 | Outpatient (CLI) | payer MEDICARE ==
[2023-01-22 09:01] VITALS: BP 150/75; PULSE 61; RESP 16; TEMP 97.5
== END ==
LOC: PROCWHC3 08:41
PROVIDERS: ATTEND Internal Medicine
DX: M81.0 Age-related osteoporosis without current pathological fracture (principal); Z88.8 Allergy status to other drugs, medicaments and biological substances; Z88.2 Allergy status to sulfonamides; Z87.891 Personal history of nicotine dependence
CPT/HCPCS: 96372; J0897

== ENCOUNTER → 2023-09-09 | Outpatient (CLI) | payer MEDICARE ==
[2023-09-09 13:28] VITALS: BP 154/78; PULSE 57; RESP 16; TEMP 97.7
== END ==
LOC: PROCWHC3 12:58
PROVIDERS: ATTEND Internal Medicine
DX: M81.0 Age-related osteoporosis without current pathological fracture (principal)
CPT/HCPCS: 96372; J0897

== ENCOUNTER → 2023-11-03 | Outpatient (CLI) | payer MEDICARE ==
[2023-11-03 18:51] LABS: Basophils # (A) 0.05 X 10*3/uL (0.00-0.10); Basophils % (A) 0.8 %; Eosinophils # (A) 0.47 X 10*3/uL (0.04-0.35); HCT 36.6 % (37.2-46.3); HGB 11.8 g/dL (12.0-15.0); Lymphocytes # (A) 2.14 X 10*3/uL (0.90-5.00); Lymphocytes % (A) 36.2 %; MCH 33.1 pg (27.0-32.0); MCHC 32.2 g/dL (32.0-37.0); MCV 102.8 FL (80.0-97.0); Monocytes # (A) 0.47 X 10*3/uL (0.20-1.00); NRBC Per 100 WBC 0 X 10*3/uL (0.00-0.01); Neutrophils # (A) 2.76 X 10*3/uL (1.80-7.70); Neutrophils % (A) 46.7 %; Platelet Count 269 X 10*3/uL (140-440); RBC 3.56 X 10*6/uL (4.10-5.20); RDW 13.7 % (11.5-14.5); WBC 5.91 X 10*3/uL (4.50-10.00)
[2023-11-03 18:55] LABS: ALT 19 U/L (8-44); AST 23 U/L (13-35); Albumin 4.2 g/dL (3.8-4.9); Albumin/Globulin Ratio 1.83 Ratio (1.60-3.17); Alkaline Phosphatase 71 U/L (41-126); BUN/Creat Ratio 17.36 Ratio (12.00-20.00); Blood Urea Nitrogen 19.1 mg/dL (9.0-27.0); Calcium 10.9 mg/dL (8.7-10.3); Carbon Dioxide 25.2 mmol/L (21.6-31.8); Chloride 107 mmol/L (96-109); Chol/HDL Ratio 3.13 Ratio; Globulin 2.3 g/dL (1.6-3.3); Glucose 85 mg/dL (70-110); LDL Cholesterol,Calculated 116.3 mg/dL (0.0-131.0); Phosphorus 3.5 mg/dL (2.4-5.1); Potassium 4.2 mmol/L (3.5-5.5); Sodium 142 mmol/L (135-145); Total Bilirubin 0.5 mg/dL (0.3-1.2); Total Protein 6.5 g/dL (6.2-8.2); VLDL Calculation 13.04 mg/dL (5.00-40.00)
== END | disposition home or self-care (01) ==
LOC: LABWHC1 09:21
PROVIDERS: ATTEND Family Medicine
DX: Z00.00 Encounter for general adult medical examination without abnormal findings (principal)
CPT/HCPCS: 36415; 80053; 80061; 83735; 84100; 85025

== ENCOUNTER → 2024-03-15 | Outpatient (CLI) | payer MEDICARE ==
[2024-03-16 02:29] LABS: Basophils # (A) 0.05 X 10*3/uL (0.00-0.10); Basophils % (A) 0.7 %; Eosinophils # (A) 0.22 X 10*3/uL (0.04-0.35); HCT 37.8 % (37.2-46.3); HGB 12.1 g/dL (12.0-15.0); Lymphocytes # (A) 3.03 X 10*3/uL (0.90-5.00); MCH 32.7 pg (27.0-32.0); MCV 102.2 FL (80.0-97.0); Mean Platelet Volume 9.7 FL (9.5-12.2); Monocytes % (A) 6.8 %; NRBC Per 100 WBC 0 X 10*3/uL (0.00-0.01); Neutrophils # (A) 3.57 X 10*3/uL (1.80-7.70); Neutrophils % (A) 48.2 %; Platelet Count 300 X 10*3/uL (140-440); RDW 13.4 % (11.5-14.5); WBC 7.39 X 10*3/uL (4.50-10.00)
[2024-03-16 03:41] LABS: % Iron Saturation 14.41 (12.00-45.00); Albumin 4.5 g/dL (3.8-4.9); Blood Urea Nitrogen 15.6 mg/dL (9.0-27.0); Calcium 11.1 mg/dL (8.7-10.3); Carbon Dioxide 25.2 mmol/L (21.6-31.8); Chloride 106 mmol/L (96-109); Glucose 125 mg/dL (70-110); Iron 50 UG/DL (50-170); Magnesium 2.4 mg/dL (1.5-2.4); Phosphorus 3.3 mg/dL (2.4-5.1); Potassium 3.7 mmol/L (3.5-5.5); Sodium 143 mmol/L (135-145); Total Iron Binding Capacity 347 UG/DL (228-460); Uric Acid 5.6 mg/dL (2.9-7.7)
[2024-03-16 03:44] LABS: Appearance,Urine Clear (Clear); Bilirubin,Urine Negative (Negative); Blood,Urine Negative (Negative); Color,Urine Yellow (Yellow); Ketones,Urine Negative (Negative); Nitrite,Urine Negative (Negative); Specific Gravity,Urine 1.012 (1.001-1.030)
[2024-03-16 03:54] LABS: Bacteria,Urine None Seen (None Seen)
[2024-03-16 04:15] LABS: Microalbumin Creatinine Ratio <16 mg/g Cr (0-30); Urine Creatinine 77.2 mg/dL (28.0-217.0)
== END | disposition home or self-care (01) ==
LOC: LABWHC1 15:57
PROVIDERS: ATTEND Nurse Practitioner Adult Health
DX: R94.4 Abnormal results of kidney function studies (principal)
CPT/HCPCS: 36415; 80048; 81001; 82040; 82043; 82306; 82570; 82728; 83540; 83550; 83735; 83970; 84100; 84550; 85025

== ENCOUNTER → 2024-03-23 | Outpatient (CLI) | payer MEDICARE ==
[2024-03-23 19:11] LABS: BUN/Creat Ratio 15.64 Ratio (12.00-20.00); Blood Urea Nitrogen 17.2 mg/dL (9.0-27.0); Calcium 10.7 mg/dL (8.7-10.3); Carbon Dioxide 25.4 mmol/L (21.6-31.8); Chloride 107 mmol/L (96-109); Glucose 89 mg/dL (70-110); Potassium 3.7 mmol/L (3.5-5.5); Sodium 143 mmol/L (135-145)
== END | disposition home or self-care (01) ==
LOC: LABWHC1 13:40
PROVIDERS: ATTEND Internal Medicine Nephrology
DX: R94.4 Abnormal results of kidney function studies (principal)
CPT/HCPCS: 36415; 80048

== ENCOUNTER → 2024-04-15 | Outpatient (CLI) | payer MEDICARE ==
[2024-04-15 18:42] LABS: Protein, Total 6.3 g/dL (6.2-8.2)
[2024-04-15 22:31] LABS: BUN/Creat Ratio 14.58 Ratio (12.00-20.00); Blood Urea Nitrogen 17.5 mg/dL (9.0-27.0); Calcium 10.8 mg/dL (8.7-10.3); Carbon Dioxide 21.3 mmol/L (21.6-31.8); Chloride 104 mmol/L (96-109); Glucose 88 mg/dL (70-110); Potassium 4.4 mmol/L (3.5-5.5); Sodium 141 mmol/L (135-145)
[2024-04-16 12:34] LABS: Angiotensin-1 Converting Enz. 5 U/L (8-52)
[2024-04-16 13:37] LABS: Free Kappa Lt Chain Qnt, Serum 1.89 mg/dL (0.33-1.94); Free Lambda Lt Chain Qnt, Seru 4.59 mg/dL (0.57-2.63)
[2024-04-16 18:25] LABS: Albumin 3.91 g/dL (3.80-4.90); Gamma Globulin 0.64 g/dL (0.70-1.50)
[2024-04-16 21:13] LABS: Vitamin D, 1, 25-Dihydroxy 45 pg/mL (20 - 79)
== END | disposition home or self-care (01) ==
LOC: LABWHC1 13:53
PROVIDERS: ATTEND Internal Medicine Nephrology
DX: E83.52 Hypercalcemia (principal)
CPT/HCPCS: 36415; 80048; 82164; 82306; 82652; 83883; 83970; 84165; 84166; 84443

== ENCOUNTER → 2024-06-21 | Outpatient (CLI) | payer MEDICARE ==
[2024-06-21 14:13] VITALS: BP 146/67; PULSE 87; RESP 16; TEMP 97.4
[2024-06-21] MEDS: DENOSUMAB 60 MG/ML 1 ML SYRINGE SQ NR (14:13)
== END ==
LOC: PROCWHC3 13:58
PROVIDERS: ATTEND Internal Medicine
DX: M81.0 Age-related osteoporosis without current pathological fracture (principal)
CPT/HCPCS: 96372; J0897

== ENCOUNTER → 2025-01-07 | Outpatient (CLI) | payer MEDICARE ==
[2025-01-07 16:31] LABS: Appearance,Urine Clear (Clear); Basophils # (A) 0.05 X 10*3/uL (0.00-0.10); Basophils % (A) 0.9 %; Bilirubin,Urine Negative (Negative); Blood,Urine Negative (Negative); Color,Urine Yellow (Yellow); Eosinophils # (A) 0.17 X 10*3/uL (0.04-0.35); HCT 35.9 % (37.2-46.3); HGB 11.5 g/dL (12.0-15.0); Ketones,Urine Negative (Negative); Lymphocytes # (A) 2.14 X 10*3/uL (0.90-5.00); Lymphocytes % (A) 38.2 %; MCH 32.8 pg (27.0-32.0); MCV 102.3 FL (80.0-97.0); Mean Platelet Volume 9.6 FL (9.5-12.2); Monocytes # (A) 0.45 X 10*3/uL (0.20-1.00); NRBC Per 100 WBC 0 X 10*3/uL (0.00-0.01); Neutrophils # (A) 2.78 X 10*3/uL (1.80-7.70); Neutrophils % (A) 49.7 %; Nitrite,Urine Negative (Negative); PH, Urine 5.5; Platelet Count 241 X 10*3/uL (140-440); RBC 3.51 X 10*6/uL (4.10-5.20); RDW 13.2 % (11.5-14.5); Specific Gravity,Urine 1.005 (1.001-1.030); Urobilinogen,Urine 0.2 E.U./DL
[2025-01-07 16:50] LABS: Iron 86 UG/DL (50-170); Magnesium 2.1 mg/dL (1.5-2.4); Phosphorus 2.5 mg/dL (2.4-5.1)
[2025-01-07 16:51] LABS: % Iron Saturation 25.83 (12.00-45.00); Blood Urea Nitrogen 13.1 mg/dL (9.0-27.0); Calcium 10.2 mg/dL (8.7-10.3); Chloride 108 mmol/L (96-109); Glucose 79 mg/dL (70-110); Potassium 4.4 mmol/L (3.5-5.5); Sodium 141 mmol/L (135-145); Total Iron Binding Capacity 333 UG/DL (228-460); Uric Acid 4.8 mg/dL (2.9-7.7)
[2025-01-07 16:57] LABS: Microalbumin Creatinine Ratio <50 mg/g Cr (0-30); Urine Creatinine 23.9 mg/dL (28.0-217.0)
== END | disposition home or self-care (01) ==
LOC: LABWHC1 10:20
PROVIDERS: ATTEND Nurse Practitioner Adult Health
DX: D64.9 Anemia, unspecified (principal); E55.9 Vitamin D deficiency, unspecified; N25.81 Secondary hyperparathyroidism of renal origin; M10.9 Gout, unspecified; N39.0 Urinary tract infection, site not specified; R80.9 Proteinuria, unspecified; R94.4 Abnormal results of kidney function studies
CPT/HCPCS: 36415; 80048; 81003; 82040; 82043; 82306; 82570; 82728; 83540; 83550; 83735; 83970; 84100; 84550; 85025

== ENCOUNTER → 2025-02-09 | Outpatient (CLI) | payer MEDICARE ==
[2025-02-09 13:49] VITALS: BP 173/73; PULSE 59; RESP 16; TEMP 98.3
[2025-02-09] MEDS: DENOSUMAB 60 MG/ML 1 ML SYRINGE SQ NR (13:53)
== END ==
LOC: PROCWHC3 13:24
PROVIDERS: ATTEND Internal Medicine
DX: M81.0 Age-related osteoporosis without current pathological fracture (principal)
CPT/HCPCS: 96372; J0897

== ENCOUNTER 2025-04-03 13:58 | Emergency (ER) | payer MEDICARE ==
[2025-04-03 14:09] VITALS: TEMP 98.8
--- NOTE | 2025-04-03 14:16 | ED ---
General Adult HPI - General Chief complaint: Extremity Injury, Lower Stated complaint: Hip Fracture/Fall Time Seen by Provider: 04/03/25 14:03 Source: patient, EMS Mode of arrival: EMS Limitations: no limitations - History of Present Illness Initial comments: Patient presents to the ED by ambulance for evaluation with her son at bedside. 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 Patient states that she fell to the ground, but she denies sustaining any other injuries. Patient is currently only complaining of having left hip pain. Patient denies head injury, headache, LOC, neck/back/upper extremity pain, chest pain, dyspnea, dizziness, abdominal pain, nausea or vomiting, focal neuro deficit, or any other symptoms or complaints. Patient states that she had a left total hip arthroplasty 6 years ago. - Related Data Home Medications Medication Instructions Recorded Confirmed PazacidJanelle moscoso B.lactis 1 cap PO DAILY 05/06/18 09/09/23 [Probiotic] metHOTREXate sodium 2.5 mg PO TU 05/06/18 09/09/23 Multivitamins, Thera [Multivitamin 1 tab PO DAILY 06/19/18 09/09/23 (formulary)] lisinopriL [Prinivil] 20 mg PO BID 06/19/18 09/09/23 Omeprazole [PriLOSEC] 20 mg PO QAM 07/06/19 09/09/23 [place]-3 Fatty Acids/Fish Oil [Fish 1 cap PO DAILY 09/07/20 09/09/23 Oil 1,000 mg Softgel] Topiramate [Topamax] 37.5 mg PO BID 05/09/21 09/09/23 Cholecalciferol [Vitamin D3 (25 50 mcg PO DAILY 06/06/21 09/09/23 Mcg = 1000 Iu)] Aspirin [Children's Aspirin] 81 mg PO DAILY 01/22/23 09/09/23 Calcium Carbonate/Vitamin D3 5,000 mg PO DIRECTED 01/22/23 09/09/23 [Calcium 600-Vit D3 62.5 Mcg (2,500 Iu)] Metoprolol Tartrate [Lopressor] 25 mg PO BID 01/22/23 09/09/23 Allergies Allergy/AdvReac Type Severity Reaction Status Date / Time pseudoephedrine HCl Allergy Unknown Verified 04/03/25 14:09 [From Sudafed] Sulfa (Sulfonamide Allergy Unknown Verified 04/03/25 14:09 Antibiotics) Review of Systems ROS Statement: Those systems with pertinent positive or pertinent negative responses have been documented in the HPI. ROS Other: All systems not noted in ROS Statement are negative. Past Medical History Past Medical History: Cancer, CVA/TIA, Hyperlipidemia, Hypertension, Rheumatoid Arthritis (RA) Additional Past Medical History / Comment(s): migraines, varicose veins, hyperparathyroidism, melanoma, anemia History of Any Multi-Drug Resistant Organisms: None Reported Past Surgical History: Joint Replacement, Orthopedic Surgery Additional Past Surgical History / Comment(s): 03/2017 L foot surgery. left hip replacement Jul, 2018, Left knee replacement before left foot surgery Past Anesthesia/Blood Transfusion Reactions: No Reported Reaction Past Psychological History: No Psychological Hx Reported Smoking Status: Former smoker - Past Family History Mother Family Medical History: Cancer Additional Family Medical History / Comment(s): Stomach cancer. Father Family Medical History: Cancer Additional Family Medical History / Comment(s): Prostate Cancer. Sister(s) Family Medical History: Cancer, CVA/TIA Additional Family Medical History / Comment(s): Lung Cancer. Brother(s) Family Medical History: CVA/TIA General Exam Limitations: no limitations General appearance: alert Eye exam: Present: normal appearance ENT exam: Present: mucous membranes moist Neck exam: Present: full ROM. Absent: tenderness Respiratory exam: Present: normal lung sounds bilaterally, rhonchi, stridor. Absent: respiratory distress, wheezes, rales Cardiovascular Exam: Present: regular rate, normal rhythm, normal heart sounds, other (Normal dorsalis pedis pulses bilaterally) GI/Abdominal exam: Present: soft. Absent: distended, tenderness, guarding Extremities exam: Present: other (Diffuse left hip tenderness; left leg is shortened and internally rotated at rest; pelvis is stable). Absent: pedal edema Back exam: Present: normal inspection. Absent: tenderness Neurological exam: Present: alert, oriented X3. Absent: motor sensory deficit Psychiatric exam: Present: normal affect Skin exam: Present: warm, dry, intact, normal color Course Vital Signs 04/03/25 04/03/25 04/03/25 14:07 14:09 15:09 Temperature 98.8 F Pulse Rate 97 90 Respiratory 16 98 H 20 Rate Blood Pressure 190/85 190/88 150/90 O2 Sat by Pulse 98 98 98 Oximetry 04/03/25 04/03/25 04/03/25 15:38 15:42 15:44 Temperature Pulse Rate 106 H 110 H 105 H Respiratory 20 16 20 Rate Blood Pressure 182/83 200/90 164/58 O2 Sat by Pulse 99 99 97 Oximetry 04/03/25 15:50 Temperature Pulse Rate 102 H Respiratory 16 Rate Blood Pressure 166/77 O2 Sat by Pulse 99 Oximetry - Reevaluation(s) Reevaluation #1: 04/03/25 16:17 Patient is now back to her baseline mental status status post procedural sedation. Postreduction left hip x-rays demonstrate good reduction. Patient and son's x 2 are aware the patient's x-ray findings, and they all feel comfortable with the patient being discharged home at this time. They were counseled about hip dislocations, and they were clearly explained return and follow-up instructions. Patient was instructed to follow-up closely with her orthopedic surgeon. She feels comfortable with this plan. Procedures - Orthopedic Joint Reduction Joint #1 Consent Obtained: verbal consent, written consent Side: left Joint Reduction Location: hip Analgesia: procedural sedation Technique Used: traction/counter-traction Post-Reduction Neuro Exam: intact Post-Reduction Vascular Exam: intact Post Reduction X-Ray Obtained: Yes Post Reduction X-Ray Results: reduced Patient Tolerated Procedure: well, no complications - Procedural Sedation *Procedural Sedation Start Time: 15:40 *Procedural Sedation Stop Time: 16:00 *Risks,benefits, and alternative therapies discussed?: Yes *Patient indicates understanding of risk/benefit discussion?: Yes *Indications: fracture/dislocation reduction *Previous Adverse Reaction to Anesthesia/Sedation?: No * Testing Complete?: No Reason Test Not Complete:: Age > 60 *ASA Class: II *Mallampati Airway Score: 2 *Time of Last PO Intake: 07:00 Preparation: hot die press operator applied, pulse oximeter, supplemental O2 applied, suction/airway equipment at bedside, IV secured IV Propofol Dose (mgs): 50 Complications: none Patient Tolerated Procedure: well, no complications Medical Decision Making - Medical Decision Making Was pt. sent in by a medical professional or institution (, PA, INSTRUMENT TECHNICIAN, urgent care, hospital, or longterm...) When possible be specific @ -No Did you speak to anyone other than the patient for history (EMS, parent, family, police, friend...)? What history was obtained from this source @ -No Did you review nursing and triage notes (agree or disagree)? Why? @ -I reviewed and agree with nursing and triage notes Were old charts reviewed (outside hosp., previous admission, EMS record, old EKG, old radiological studies, urgent care reports/EKG's, longterm records)? Report findings @ -No old charts were reviewed Differential Diagnosis (chest pain, altered mental status, abdominal pain women, abdominal pain men, vaginal bleeding, weakness, fever, dyspnea, syncope, headache, dizziness, GI bleed, back pain, seizure, CVA, palpatations, mental health, musculoskeletal)? @ -Hip pain, hip strain, arthritis, fracture, sprain, dislocation, this is not meant to be a complete list. EKG interpreted by me (3pts min.). @ -None done X-rays interpreted by me (1pt min.). @ -Initial left hip x-rays demonstrated dislocation at artificial left hip joint. Postreduction x-rays demonstrate good reduction. No acute fracture is seen. I agree with the radiologist's interpretations as above. CT interpreted by me (1pt min.). @ -None done U/S interpreted by me (1pt. min.). @ -None done What testing was considered but not performed or refused? (CT, X-rays, U/S, labs)? Why? @ -None What meds were considered but not given or refused? Why? @ -None Did you discuss the management of the patient with other professionals (professionals i.e. , PA, INSTRUMENT TECHNICIAN, lab, RT, psych nurse, social sciences professor, sagger preparer, teacher, retirement officer, home health care case manager)? Give summary @ -No Was smoking cessation discussed for >3mins.? @ -No Was critical care preformed (if so, how long)? @ -No Were there social determinants of health that impacted care today? How? (Homelessness, low income, unemployed, alcoholism, drug addiction, transportation, low edu. Level, literacy, decrease access to med. care, skilled nursing, rehab)? @ -No Was there de-escalation of care discussed even if they declined (Discuss DNR or withdrawal of care, Hospice)? DNR status @ -No What co-morbidities impacted this encounter? (DM, HTN, Smoking, COPD, CAD, Cancer, CVA, ARF, Chemo, Hep., AIDS, mental health diagnosis, sleep apnea, morbid obesity)? @ -None Was patient admitted / discharged? Hospital course, mention meds given and route, prescriptions, significant lab abnormalities, going to OR and other pertinent info. @ -Closed left hip reduction was performed in the ED under procedural sedation. Good reduction was achieved. No evidence of fracture. Patient has fully recovered from procedural sedation. Will discharge patient home with her son's x 2 at this time. Strict return and follow-up instructions were provided. Patient was instructed to follow-up closely with her orthopedic surgeon. Undiagnosed new problem with uncertain prognosis? @ -No Drug Therapy requiring intensive monitoring for toxicity (Heparin, Nitro, Insulin, Cardizem)? @ -No Were any procedures done? @ -Yes, as above. Diagnosis/symptom? @ -Left hip dislocation status post reduction Acute, or Chronic, or Acute on Chronic? @ -Acute Uncomplicated (without systemic symptoms) or Complicated (systemic symptoms)? @ -Default Side effects of treatment? @ -No Exacerbation, Progression, or Severe Exacerbation? @ -No Poses a threat to life or bodily function? How? (Chest pain, USA, HI, pneumonia, PE, COPD, DKA, ARF, appy, cholecystitis, CVA, Diverticulitis, Homicidal, Suicidal, threat to staff... and all critical care pts) @ -No - Radiology Data Left hip x-rays: Postsurgical changes from left hip arthroplasty with acute posterior lateral dislocation of the proximal femoral component from the acetabular component. No acute fracture. Postreduction left hip x-rays: Disposition Clinical Impression: Hip dislocation, left Disposition: HOME SELF-CARE Condition: Stable Instructions (If sedation given, give patient instructions): Hip Dislocation (ED), Procedural Sedation (ED) Additional Instructions: Return to the ER immediately should you develop new or worsening pain, feeling dizzy or faint, shortness of breath, or new or worsening symptoms. Follow-up closely with your primary care provider, as well as your orthopedic surgeon. Is patient prescribed a controlled substance at d/c from ED?: No Referrals: Finn Pagan MD [Primary Care Provider] - 1-2 days Hany Barclay DO [Doctor of Osteopathic Medicine] - 1-2 days Time of Disposition: 16:27
[2025-04-03] MEDS: HYDROmorphone 0.5 MG/0.5 ML SYRINGE IVP STA (14:38)
[2025-04-03] MEDS: PROPOFOL 10 MG/ML 20 ML VIAL IV ONE (14:40)
--- NOTE | 2025-04-03 15:13 | XR ---
EXAMINATION TYPE: XR Hip Complete LT DATE OF EXAM: 04/03/2025 2:50 PM INDICATION: Patient age:Female; 79 years old; Reason for study: left hip injury; PHH. pain COMPARISON: Hip radiograph 07/23/2024, Left hip fluoroscopic images 07/12/2019 TECHNIQUE: The left hip was examined in the frontal and lateral projections and a AP pelvis. FINDINGS: Postsurgical changes from left hip arthroplasty. There is posterior lateral dislocation of the proximal femoral component from the acetabular component. No acute fracture. No soft tissue swell ing. IMPRESSION: Postsurgical changes from left hip arthroplasty with acute posterior lateral dislocation of the proxi mal femoral component from the acetabular component. No acute fracture. [facility], , 04/03/2025 3:11 PM
[2025-04-03 15:53] VITALS: RESP 16
--- NOTE | 2025-04-03 16:07 | XR ---
EXAMINATION TYPE: XR Hip Limited LT DATE OF EXAM: 04/03/2025 3:56 PM INDICATION: Patient age:Female; 79 years old; Reason for study: post-reduction; PHH. pain COMPARISON: Left hip radiograph the same date TECHNIQUE: The left hip was examined in single frontal projection. FINDINGS: Post reduction of previously seen dislocated left femoral arthroplasty. Hardware appears in tact with appropriate alignment now. No acute fracture or dislocation. No soft tissue swelling. IMPRESSION: Post reduction of left hip arthroplasty in appropriate alignment. [facility], , 04/03/2025 4:04 PM
[2025-04-03 17:02] VITALS: PULSE 68
[2025-04-03 17:24] VITALS: BP 145/65
== END 2025-04-03 17:24 | disposition home or self-care (01) ==
LOC: EC 13:58
DX: S73.005A Unspecified dislocation of left hip, initial encounter (principal); Z86.73 Personal history of transient ischemic attack (TIA), and cerebral infarction without residual deficits; Z87.891 Personal history of nicotine dependence; Z88.2 Allergy status to sulfonamides; Z88.1 Allergy status to other antibiotic agents; X58.XXXA Exposure to other specified factors, initial encounter
CPT/HCPCS: 73501; 73502; 99283; 27265; 96374; J2704; J1171